=== PATIENT | female | born 1950 | race Caucasian/White ===

== ENCOUNTER 2017-10-10 10:37 | Day surgery (SDC) | payer MEDICARE ==
[2017-10-07 10:43] VITALS: BMI 42.3
[~2017-10-10 10:37] MED LIST: LACTATED RINGERS 1,000 ML IV SCH; LIDOCAINE 1% 20 ML VIAL (10MG/ML) FOR IV START INTRADERMA PRN
[2017-10-10 11:53] VITALS: RESP 16; TEMP 98
[2017-10-10] MEDS ORDERED: LIDOCAINE 1% INJ 10MG/ML (20 ML MDV) ONE (12:51)
[2017-10-10] MEDS ORDERED: PROPOFOL 10 MG/ML 20 ML VIAL IV ONE (12:51)
[2017-10-10] MEDS ORDERED: MIDAZOLAM 2 MG/2 ML VIAL ONE (12:51)
--- NOTE | 2017-10-10 13:24 | P.PCN ---
Date of Procedure: 10/10/17 Procedure(s) Performed: Procedure: Total colonoscopy and polypectomy. Preoperative diagnosis: Screening for neoplasia. Postoperative diagnosis: 1. Sigmoid diverticulosis with no evidence of acute diverticulitis or strictures. 2. Small splenic flexure polyp snared but no large polyps or cancer. Preparation: HalfLytely prep. Sedation: Was provided by anesthesia. Brief clinical history: The patient is a 67-year-old female who is scheduled for this evaluation for screening for neoplasia. She had a prior exam around 15 years ago. She has no abdominal complaints, bleeding or anemia. Procedure: With the patient on her left lateral decubitus position and after informed consent and adequate sedation, the perianal area was inspected and it did not show any fissures or fistulas. There were no masses felt on digital rectal examination. The Olympus CFQ 160L video colonoscope was then inserted in the rectum in the usual fashion and advanced to the cecum. There were several diverticular orifices seen scattered in the sigmoid with no evidence of acute diverticulitis or strictures. A small polyp was seen around the splenic flexure and that was snared and retrieved by suction, but there were no large polyps or cancer. I retroflexed the endoscope in the rectum before the endoscope was withdrawn. The patient tolerated the procedure well. Plan: The patient was reassured. Discussed dietary measures. She will follow up with you as planned and I recommended repeat exam in 5 years.
[2017-10-10 13:42] VITALS: BP 124/83; PULSE 78
== END 2017-10-10 14:10 | disposition home or self-care (01) ==
LOC: ORWHC2ENDO 10:37
DX: Z12.11 Encounter for screening for malignant neoplasm of colon (principal); K51.40 Inflammatory polyps of colon without complications; K57.30 Diverticulosis of large intestine without perforation or abscess without bleeding; E07.9 Disorder of thyroid, unspecified; M19.90 Unspecified osteoarthritis, unspecified site; E66.01 Morbid (severe) obesity due to excess calories; Z68.41 Body mass index [BMI] 40.0-44.9, adult; Z91.09 Other allergy status, other than to drugs and biological substances; Z79.1 Long term (current) use of non-steroidal anti-inflammatories (NSAID); Z79.899 Other long term (current) drug therapy; Z85.3 Personal history of malignant neoplasm of breast; Z90.12 Acquired absence of left breast and nipple
CPT/HCPCS: 45385; 88305; J2250; J2001; J2704

== ENCOUNTER → 2017-10-26 | Outpatient (CLI) | payer MEDICARE ==
--- NOTE | 2017-10-26 11:47 | MM ---
Reason for exam: additional evaluation requested from prior study. Last mammogram was performed 2 years ago. History: Patient is postmenopausal, has history of breast cancer at age 43, and is nulliparous. Family history of premenopausal breast cancer in sister at age 42. Mastectomy of the left breast, 1992. Chemotherapy, 1992. Took hormonal contraceptives for 15 years beginning at age 19. Took progesterone for 3 months beginning at age 42. Physical Findings: Nurse did not find any significant physical abnormalities on exam. MG 3D Diag Mammo W/Cad RT CC and MLO view(s) were taken of the right breast. Prior study comparison: November 04, 2015, right breast MG 3d diag mammo w/cad RT. August 21, 2013, right diagnostic mammogram w/CAD. The breast tissue is heterogeneously dense. This may lower the sensitivity of mammography. Finding: There are typically benign round calcifications in the right breast. There is no discrete abnormality. These results were verbally communicated with the patient and result sheet given to the patient on 10/26/17. ASSESSMENT: Benign, BI-RAD 2 RECOMMENDATION: Follow-up diagnostic mammogram of the right breast in 1 year.
== END | disposition home or self-care (01) ==
LOC: RADMAMWWP 10:38
PROVIDERS: ATTEND Family Medicine
DX: Z08 Encounter for follow-up examination after completed treatment for malignant neoplasm (principal); Z85.3 Personal history of malignant neoplasm of breast; Z90.12 Acquired absence of left breast and nipple
CPT/HCPCS: 77065; G0279

== ENCOUNTER → 2018-09-11 | Outpatient (CLI) | payer MEDICARE ==
[2018-09-11 09:35] LABS: HCT 41.7 % (34.0-46.0); HGB 13.5 gm/dL (11.4-16.0); MCH 30.6 pg (25.0-35.0); MCHC 32.4 g/dL (31.0-37.0); MCV 94.3 fL (80.0-100.0); Mean Platelet Volume 6.4; Platelet Count 240 k/uL (150-450); RBC 4.42 m/uL (3.80-5.40); RDW 13.3 % (11.5-15.5); WBC 4.1 k/uL (3.8-10.6)
[2018-09-11 09:42] LABS: Appearance,Urine Clear (Clear); Bilirubin,Urine Negative (Negative); Blood,Urine Negative (Negative); Color,Urine Yellow; Glucose,Urine (UA) Negative (Negative); Ketones,Urine Negative (Negative); Leukocyte Esterase,Urine Negative (Negative); Nitrite,Urine Negative (Negative); PH, Urine 6.5 (5.0-8.0); Protein,Urine Trace (Negative); Specific Gravity,Urine 1.018 (1.001-1.035); Urobilinogen,Urine <2.0 mg/dL (<2.0)
[2018-09-11 09:45] LABS: INR 0.9 (<1.2); Prothrombin Time 9.9 sec (9.0-12.0)
[2018-09-11 09:53] LABS: ALT 23 U/L (9-52); AST 25 U/L (14-36); Albumin 4.2 g/dL (3.5-5.0); Alkaline Phosphatase 70 U/L (38-126); Anion Gap 7 mmol/L; Blood Urea Nitrogen 21 mg/dL (7-17); Calcium 9.9 mg/dL (8.4-10.2); Carbon Dioxide 30 mmol/L (22-30); Chloride 105 mmol/L (98-107); Glucose 93 mg/dL (74-99); Sodium 142 mmol/L (137-145); Total Bilirubin 0.8 mg/dL (0.2-1.3); Total Protein 7.5 g/dL (6.3-8.2)
[2018-09-11 10:05] LABS: Potassium 4.9 mmol/L (3.5-5.1)
== END | disposition home or self-care (01) ==
LOC: LABPAT 08:09
PROVIDERS: ATTEND Orthopaedic Surgery
DX: Z01.818 Encounter for other preprocedural examination (principal); Z79.01 Long term (current) use of anticoagulants; Z01.812 Encounter for preprocedural laboratory examination
CPT/HCPCS: 36415; 80053; 81003; 85027; 85610; 85730; 86850; 86900; 86901; 87070; 93005

== ENCOUNTER 2018-09-19 13:54 | Inpatient (IN) | payer MEDICARE ==
[~2018-09-19 13:54] MED LIST changes: +ACETAMINOPHEN TAB 500 MG TAB PO ONE; +DEXAMETHASONE SOD PHOSPHATE 10 MG/ML 1 ML VIAL IV ONE; -LACTATED RINGERS 1,000 ML IV SCH; +MELOXICAM 7.5 MG TAB PO ONE; +MIDAZOLAM (PF) 2 MG/2 ML VIAL IV PRN; +ONDANSETRON 4 MG/2 ML VIAL IVP ONE; +ROPIVACAINE 246.25 MG, EPINEPHrine 0.5 MG, KETOROLAC 30 MG, cloNIDine HCL/PF 80 MCG, WA... MISCELLANE ONE; +SCOPOLAMINE 1.5MG/72HR PATCH TRANSDERM ONE; +TRANEXAMIC ACID 1,000 MG in SODIUM CHLORIDE 0.9% 50 ML IVPB ONE
[2018-09-19] MEDS: LACTATED RINGERS 1,000 ML IV SCH (14:38)
[2018-09-19] MEDS ORDERED: HEPARIN SODIUM,PORCINE 10,000 UNIT/ML 1 ML VIAL ONE (15:29)
[2018-09-19] MEDS ORDERED: LACTATED RINGERS 1,000 ML BAG IV ONE (15:29)
[2018-09-19] MEDS ORDERED: PROPOFOL 10 MG/ML 20 ML VIAL IV ONE (15:29)
[2018-09-19] MEDS ORDERED: ePHEDrine SULFATE/0.9% NACL/PF 50 MG/5 ML SYRINGE IV ONE (15:29)
[2018-09-19] MEDS ORDERED: TRANEXAMIC ACID 1,000 MG/10 ML VIAL ONE (15:29)
[2018-09-19] MEDS ORDERED: SODIUM CHLORIDE 0.9% 100 ML BAG ONE (15:29)
[2018-09-19] MEDS ORDERED: fentaNYL (PF) 50 MCG/ML 2 ML AMP ONE (15:29)
[2018-09-19] MEDS ORDERED: MIDAZOLAM 2 MG/2 ML VIAL ONE (15:29)
[2018-09-19] MEDS ORDERED: MAGNESIUM HYDROXIDE 2,400 MG/10 ML CUP PO PRN (16:02)
[2018-09-19] MEDS ORDERED: DIAZEPAM 5 MG TAB PO PRN (16:02)
[2018-09-19] MEDS ORDERED: HYDROmorphone 0.5 MG/0.5 ML SYRINGE IVP PRN ×3 (16:02)
[2018-09-19] MEDS ORDERED: ONDANSETRON 4 MG/2 ML VIAL IVP PRN (16:02)
[2018-09-19] MEDS ORDERED: NALOXONE 0.4 MG/ML 1 ML VIAL IV PRN (16:02)
[2018-09-19] MEDS ORDERED: HYDROcodone/APAP 5-325MG 1 EACH TAB PO PRN (16:02)
[2018-09-19] MEDS ORDERED: ceFAZolin 3,000 MG in SODIUM CHLORIDE 0.9% IRRIGATIO 3,000 ML IRRIGATION ONE (16:30)
--- NOTE | 2018-09-19 17:13 | P.OP ---
Date of Procedure: 09/19/18 Preoperative Diagnosis: Severe osteoarthritis right hip Postoperative Diagnosis: Severe osteoarthritis right hip Procedure(s) Performed: Right total hip arthroplasty with a direct anterior approach Implants: Pineda and nephew Polarstem size 9 standard with a collar Pineda [employer] Nephew R3, 3 hole acetabular shell, 52 mm Pineda [employer] Nephew reflection 6.5 mm cancellus screw, 20 mm 2 Pineda [employer] Nephew R3, XLPE 20 acetabular liner Pineda [employer] Nephew Oxinium femoral head 36 m, +4 All components were press-fit. The articulation is Oxinium on polyethylene. Anesthesia: spinal Surgeon: Keith Montero Tire Builder Heavy Service #1: Cate Wood Estimated Blood Loss (ml): 200 (66 mL returned with Cell Saver) Pathology: other (Femoral head) Condition: stable Disposition: PACU Indications for Procedure: After failure of conservative treatment we discussed the surgical and nonsurgical treatment options at length. Patient wishes to proceed with a total hip arthroplasty with a direct anterior approach. Complications specific to this procedure were discussed at length, including but not limited to infection, leg length discrepancy, dislocation, and nerve injury. Patient is aware of all these complications and informed consent was obtained Operative Findings: The operative findings are consistent with severe osteoarthritis of the right hip Description of Procedure: Patient was seen and evaluated in the preoperative area, consent was reviewed, and the surgical site was marked with a skin marker. Patient was then brought to the operating room and given prophylactic antibiotics intravenously. 1 g of Tranexamic acid was also given. A spinal anesthetic was administered by the anesthesia department. The patient was then placed on the [place] table with the bony prominences well-padded. The hip area was then prepped and draped in usual sterile fashion. A universal timeout was then performed, which confirmed the patient's name, surgical site, ALLERGIES, and procedure being performed. Next the incision site was located at 1 cm distal and 1 cm lateral to the anterior superior iliac spine. The skin and subcutaneous tissues were sharply incised. Incision was carefully dissected down to the fascia overlying the tensor fascia nghia muscle. This fascia was then incised in line with the incision. Next, using blunt finger dissection, the tensor fascia nghia muscle was dissected off its investing fascia. The muscle was then carefully retracted laterally with a cobra retractor over the lateral neck of the femur. Next, the circumflex vessels were identified and cauterized using the AquaMantis device. The anterior hip capsule was then exposed. The capsule was then opened and an inverted T fashion. Cobra retractors were then placed intracapsularly. The proximal femur was then visualized. The femoral neck was then osteotomized appropriate level above the lesser trochanter. Small amount of traction was placed with the [place] table. A small wedge of bone was then removed from the remaining femoral head. Next, using a corkscrew femoral head was easily removed from the acetabulum. On gross visual inspection, the femoral head had complete loss of articular cartilage in multiple periarticular osteophytes. Attention was then turned to the acetabulum. the acetabulum was exposed and any remaining labrum was excised. Sequential reaming of the acetabulum was performed using fluoroscopic guidance. When the appropriate size was reached, a trial was then placed. The position and fit of the trial was checked with fluoroscopy. The trial was then removed. Then, using fluoroscopic guidance, the final implant was impacted at 20 of anteversion and 40 of abduction, and fully seated in the acetabulum. 2 screws were then placed in the acetabulum. Again fluoroscopy was used to check position of the screws. Next, the liner was then impacted, with a 20 elevated liner located in the anterior superior quadrant. Component locking was confirmed. Attention was then directed to the femur. With the aid of the [place] table, the femur was externally rotated to approximately 130, extended, and abducted under the opposite leg. A side hook was then placed under the proximal femur, and the side hook elevator was used to elevate the proximal femur. Retractors were then placed. A capsular release was performed, as well as a release of the conjoined tendon, which afforded excellent visualization of the proximal femur. Next, a box osteotome was used to lateralize the proximal femur. A hand alterations seamstress was then used to locate the femoral canal. Sequential broaching was then performed with appropriate size which afforded excellent fixation in the proximal femur. A trial was then placed with appropriate head and neck, and the hip was gently reduced with the aid of the [place] table. Fluoroscopy was then used to check position of the components, as well as to ensure equal leg lengths. The hip was then gently dislocated and the trials were then removed. Final implants were then impacted and the hip was again reduced. Final fluoroscopic x-rays confirmed that the components were in anatomic position, as well as equal leg lengths. The hip was also taken through range of motion, and found to be stable. The hip was then copiously irrigated with antibiotic solution with pulsatile lavage. The hip was then irrigated with Irrisept solution. The soft tissues were then injected with a ropivacaine solution, which consisted of 246.25 mg of ropivacaine, 0.5 mg of epinephrine, 30 mg of Toradol, 80 g of clonidine, and 48.45 mL of sterile water, for a total of 100 mL of fluid injected. A second dose of 1 g of Tranexamic acid was also given. the fascia was then closed with 2-0 strata fix suture. The subcutaneous tissue was closed with 3-0 Vicryl. The subcuticular tissue was closed with 3-0 strata fix suture. The skin was then closed with Dermabond glue and a sterile silver dressing. The patient was then transferred to the recovery room in stable condition. The assistant professor of history ALOK Stewart was required due to the complexity of surgery, and the need for skilled neurosurgical physician assistant for positioning, draping, exposure, retraction, and closure of the wound.
--- NOTE | 2018-09-19 18:29 | XR ---
PROCEDURE: XR Hip Limited RT - 1V DATE AND TIME: 09/19/2018 5:59 PM CLINICAL INDICATION: PHH; Status post hip surgery, assess surgical alignment TECHNIQUE: AP view COMPARISON: None FINDINGS: Right THR prosthesis has normal positioning and alignment. Postsurgical changes are appreci ated, but no unexpected on this single AP view. IMPRESSION: Postoperative right hip.
[2018-09-19] MEDS: SODIUM CHLORIDE 0.9% 1,000 ML IV SCH (19:06)
[2018-09-19] MEDS: SENNOSIDES-DOCUSATE SODIUM 1 EACH TAB PO SCH (19:22)
[2018-09-19] MEDS: ASPIRIN 325 MG TAB PO SCH (19:22)
[2018-09-19] MEDS: HYDROcodone/APAP 5-325MG 1 EACH TAB PO PRN (19:22)
--- NOTE | 2018-09-19 22:17 | P.CONS ---
History of Present Illness - Reason for Consult Consult date: 09/19/18 medical managemen t Requesting physician: Keith Montero - Chief Complaint elective right FERMIN - History of Present Illness 68-year-old female with history of hypothyroidism. Patient presented for elective right total hip arthroplasty secondary to degenerative joint disease. Patient is seen postoperative day 0 tolerated procedure well denies any chest pain or trouble breathing patient has not passed urine or bowel movement. She just came back from surgery. Denies any nausea vomiting she tolerated by mouth intake. Denies any coughing fevers or chills. She reports that pain is well tolerated at this point. Review of Systems Pertinent positives as noted in HPI. All other systems were reviewed and are negative Past Medical History Past Medical History: Cancer, Osteoarthritis (OA), Thyroid Disorder Additional Past Medical History / Comment(s): HX OF BREAST CANCER WITH CHEMO ( 1993)., USES CANE. History of Any Multi-Drug Resistant Organisms: None Reported Past Surgical History: Breast Surgery Additional Past Surgical History / Comment(s): LEFT MASTECTOMY WITH LYMPH NODE REMOVAL Past Anesthesia/Blood Transfusion Reactions: No Reported Reaction Additional Past Anesthesia/Blood Transfusion Reaction / Comm: STATES WHEN SHE LAYS ON HER SIDE HER HEART BEATS IRREGULAR. Past Psychological History: No Psychological Hx Reported Smoking Status: Former smoker Past Alcohol Use History: Daily Additional Past Alcohol Use History / Comment(s): QUIT SMOKING 1976. SMOKED FOR 10 YEARS. DRINKS 1 DRINK DAILY. Past Drug Use History: None Reported - Past Family History Father Family Medical History: Cancer Additional Family Medical History / Comment(s): LUNG CANCER Sister(s) Family Medical History: Cancer Additional Family Medical History / Comment(s): BREAST CANCER Medications and Allergies Home Medications Medication Instructions Recorded Confirmed Type Levothyroxine Sodium [Synthroid] 50 mcg PO QAM 10/07/17 09/19/18 History Naproxen 500 mg PO BID 09/13/18 09/19/18 History Allergies Allergy/AdvReac Type Severity Reaction Status Date / Time nickel Allergy Unknown SKIN Verified 09/19/18 16:28 IRRITATION Physical Exam Vitals: Vital Signs Temp Pulse Pulse Resp BP Pulse Ox 09/19/18 19:50 16 09/19/18 18:25 85 16 129/74 98 09/19/18 18:00 83 16 117/59 95 09/19/18 17:43 88 16 117/56 95 09/19/18 17:28 98 F 79 14 140/58 97 09/19/18 16:02 98 F 60 16 110/49 98 09/19/18 14:10 98.3 F 85 16 154/82 93 L Intake and Output 09/19/18 09/19/18 09/19/18 06:59 14:59 22:59 Intake Total 200 1921 Output Total 200 Balance 200 1721 Intake: IV 200 701 Intake, IV Titration 140 Amount Sodium Chloride 0.9% 1, 140 000 ml @ 70 mls/hr IV . [id number] [facility] Rx#:[id number] Oral 1080 Output: Estimated Blood Loss 200 Constitutional: No acute distress, conversant, pleasant Eyes: Anicteric sclerae, moist conjunctiva, no lid-lag Pupils equal round reactive to light ENMT: NC/AT Oropharynx clear, no erythema, exudates Neck: Supple, FROM, no masses, or JVD No carotid bruits No thyromegaly Lungs: Clear to auscultation Clear to percussion Normal respiratory effort, no accessory muscle use Cardiovascular: Heart regular in rate and rhythm, No murmurs, gallops, or rubs No peripheral edema Abdominal: Soft Nontender, no guarding, rebound or rigidity Abdomen moving with respiration Normoactive bowel sounds No hepatomegaly, No splenomegaly No palpable mass No abdominal wall hernia noted Skin: Normal temperature, tone, texture, turgor No induration No subcutaneous nodules No rash, lesions No ulcers Extremities: Surgical dressing over the right hip looks dry clean and intact no bruising or ecchymosis skin is soft to the touch. No digital cyanosis No clubbing Pedal pulses intact and symmetrical Radial pulses intact and symmetrical No calf tenderness Psychiatric: Alert and oriented to person, place and time Appropriate affect fair judgment Neuro Muscles Strength 5/5 in all 4 extremities Sensation to light touch grossly present throughout Cranial nerves II-XII grossly intact Decreased sensation of the lateral aspect of the right thigh Lymphatics: no palpable cervical or supraclavicular , or inguinal lymph nodes Assessment and Plan Assessment: 68-year-old female with history of hypothyroidism, presented for elective right total hip arthroplasty secondary to degenerative disease medicine consulted for medical management patient tolerated procedure well denies any immediate complications denies any chest pain trouble breathing shortness of breath fevers chills headache or bleeding. Plan: Degenerative joint disease of the right hip status post right total hip arthroplasty postoperative day 0 Management per orthopedics Pain control DVT prophylaxis per orthopedic Hypothyroidism resume levothyroxine Follow-up morning labs CBC and CMP code status full code emergency contact, patient nephew Thank you for allowing us to participate in the care of this patient. Do not hesitate to contact us with questions. Someone can be reached from the [facility] hospitalist group at all hours of the day at [phone].
[2018-09-19] MEDS ORDERED: ceFAZolin 3 GM in SODIUM CHLORIDE 0.9% 100 ML IVPB SCH (23:00)
[2018-09-20] MEDS: HYDROcodone/APAP 5-325MG 1 EACH TAB PO PRN (03:32)
[2018-09-20] MEDS: LACTATED RINGERS 1,000 ML IV SCH (04:31)
[2018-09-20] MEDS: LEVOTHYROXINE 50 MCG TAB PO SCH (06:14)
[2018-09-20] MEDS: SODIUM CHLORIDE 0.9% 1,000 ML IV SCH ×2 (06:14→20:18)
[2018-09-20 07:33] LABS: Basophils % (A) 0 %; Eosinophils % (A) 0 %; HCT 33.6 % (34.0-46.0); HGB 11.3 gm/dL (11.4-16.0); Lymphocytes # (A) 0.7 k/uL (1.0-4.8); Lymphocytes % (A) 7 %; MCH 31.8 pg (25.0-35.0); MCHC 33.6 g/dL (31.0-37.0); MCV 94.8 fL (80.0-100.0); Mean Platelet Volume 6.9; Monocytes # (A) 0.5 k/uL (0-1.0); Monocytes % (A) 5 %; Neutrophils # (A) 7.9 k/uL (1.3-7.7); Neutrophils % (A) 87 %; Platelet Count 207 k/uL (150-450); RBC 3.54 m/uL (3.80-5.40); RDW 13.3 % (11.5-15.5); WBC 9.2 k/uL (3.8-10.6)
[2018-09-20 07:58] LABS: Albumin 3.3 g/dL (3.5-5.0); Calcium 8.9 mg/dL (8.4-10.2); Potassium 4.1 mmol/L (3.5-5.1); Total Bilirubin 0.5 mg/dL (0.2-1.3); Total Protein 5.8 g/dL (6.3-8.2)
--- NOTE | 2018-09-20 09:25 | XR ---
"Right hip HISTORY: Status post hip arthroplasty, pain Single frontal view of the right hip. Patient is post right hip arthroplasty. Proximal right femoral fracture is present extending through the hip prosthesis placement which is now displaced and angulated. No dislocation. IMPRESSION: Postop changes with proximal right femoral fracture as described A [place] critical message alert has been initiated for Guido Agarwal MD~[id number] via the [employer] | Critical Results System on 09/20/2018 9:23 AM. This message alert has been sent to Guido Agarwal MD~[id number] via the preferences provided by the clinician for the receipt of Radiology Criti lyn Findings. Message ID [id number]."
--- NOTE | 2018-09-20 09:26 | XR ---
Limited right hip HISTORY: Right hip arthroplasty 2 intraoperative C-arm images document the procedure
--- NOTE | 2018-09-20 09:31 | FL ---
Fluoroscopy HISTORY: Right hip arthroplasty 23 seconds fluoroscopy time supplied to the referring clinician. 2 intraoperative C-arm images docum ent the procedure. See dictated report from orthopedic surgery.
[2018-09-20] MEDS: MELOXICAM 7.5 MG TAB PO SCH (09:53)
[2018-09-20] MEDS: HYDROcodone/APAP 7.5-325MG 1 EACH TAB PO PRN ×3 (09:54→21:29)
[2018-09-20] MEDS: ASPIRIN 325 MG TAB PO SCH ×2 (11:32→20:18)
--- NOTE | 2018-09-20 12:05 | P.PN ---
Subjective Progress Note Date: 09/20/18 Principal diagnosis: Right hip arthroplasty Patient seen and examined. No acute events overnight. Patient reports right hip pain scale 5 out of 10 in severity. States she was able to ambulate to the washroom twice today. States that she was on her feet when she heard a pop in her right hip surgery. Discovered to have proximal right femoral fracture which is now displaced and angulated. She is plan for surgery tomorrow, nothing by mouth after midnight. Objective - Vital Signs Vital signs: Vital Signs Temp 97.8 F 09/20/18 07:00 Pulse 75 09/20/18 07:00 Resp 16 09/20/18 07:00 BP 119/68 09/20/18 07:00 Pulse Ox 98 09/20/18 07:00 Intake & Output 09/19/18 09/20/18 09/20/18 18:59 06:59 18:59 Intake Total 901 1220 240 Output Total 200 Balance 701 1220 240 Intake: IV 901 Intake, IV Titration 140 Amount Sodium Chloride 0.9% 1, 140 000 ml @ 70 mls/hr IV . [id number] [facility] Rx#:[id number] Oral 1080 240 Output: Estimated Blood Loss 200 Other: # Voids 1 - Exam General: [non toxic], [no distress], [appears at stated age] Derm: [warm], [dry] Head: [atraumatic], [normocephalic], [symmetric] Eyes: [EOMI], [no lid lag], [anicteric sclera] Mouth: [no lip lesion], [mucus membranes moist] Cardiovascular: [S1S2 reg], [no murmur], [positive DP pulse bilateral] Lungs: [CTA bilateral], [no rhonchi, no rales] , [no accessory muscle use] Abdominal: [soft], [ nontender to palpation], [no guarding], [no appreciable organomegaly] Ext: [no gross muscle atrophy], [no edema], [no contractures], [surgical dressings clear dry and intact] Neuro: [no focal neuro deficits] Psych: [Alert], [oriented], [appropriate affect] - Labs CBC & Chem 7: 09/20/18 07:13 09/20/18 07:13 Labs: Abnormal Lab Results - Last 24 Hours (Table) 09/20/18 09/20/18 Range/Units 07:13 07:13 RBC 3.54 L (3.80-5.40) m/uL Hgb 11.3 L (11.4-16.0) gm/dL Hct 33.6 L (34.0-46.0) % Neutrophils # 7.9 H (1.3-7.7) k/uL Lymphocytes # 0.7 L (1.0-4.8) k/uL BUN 22 H (7-17) mg/dL Glucose 145 H (74-99) mg/dL Total Protein 5.8 L (6.3-8.2) g/dL Albumin 3.3 L (3.5-5.0) g/dL Assessment and Plan Assessment: Assessment and Plan 1. Right femoral head fracture 2. Degenerative joint disease of the right hip status post total right hip arthroplasty POD 1 3. Hypothyroidism 1. Discovered on x-ray. Complication of surgery. [place] and Dilaudid as needed for pain control. Meloxicam daily. Nothing by mouth after midnight, plans for OR tomorrow. Weightbearing as per orthopedic recommendations. Will follow orthopedic, PT and OT recommendations. 2. Management as above. 3. Continue Synthroid 50 g by mouth daily. Plans for OR tomorrow.
--- NOTE | 2018-09-20 16:38 | P.PN ---
Progress Note - Text Progress Note Date: 09/20/18 Mrs. Boogie was seen and evaluated the bedside this afternoon. On reviewing her postoperative x-rays, I noticed what appeared to be a periprosthetic fracture of her right hip. When I came to see her this morning she complained of pain and hearing a popping sound in her right hip. I ordered a stat x-ray of her right hip which revealed a definite periprosthetic fracture with displacement. I have explained this at length with Heike about what is occurring. She is aware of what is happening, and I also discussed the need for surgical repair of the fracture. I discussed how the procedure was going to be performed by extending her prior incision distally and placing cable wires around the fracture. He was also discussed at length that there is a possibility of needing to revise the femoral stem as well. I discussed this at length with her and answered all her questions to the best of my ability. We will plan on doing this tomorrow morning and informed consent was obtained.
[2018-09-20] MEDS: SENNOSIDES-DOCUSATE SODIUM 1 EACH TAB PO SCH (20:18)
[2018-09-20] MEDS: hydrOXYzine PAMOATE 25 MG CAP PO PRN (21:30)
[2018-09-21] MEDS: hydrOXYzine PAMOATE 25 MG CAP PO PRN (03:13)
[2018-09-21] MEDS: HYDROcodone/APAP 7.5-325MG 1 EACH TAB PO PRN ×2 (03:13→21:33)
[2018-09-21] MEDS: LACTATED RINGERS 1,000 ML IV SCH (05:02)
[2018-09-21] MEDS: LEVOTHYROXINE 50 MCG TAB PO SCH (05:08)
[2018-09-21] MEDS: ASPIRIN 325 MG TAB PO SCH (08:42)
[2018-09-21] MEDS: MELOXICAM 7.5 MG TAB PO SCH (08:42)
[2018-09-21] MEDS ORDERED: IV FLUID CONTINUATION 1,000 ML IV ONE (08:47)
[2018-09-21] MEDS ORDERED: DEXAMETHASONE SOD PHOSPHATE 10 MG/ML 1 ML VIAL IV ONE (08:54)
[2018-09-21] MEDS ORDERED: NEOSTIGMINE 1 MG/ML 10 ML VIAL ONE (09:38)
[2018-09-21] MEDS ORDERED: PROPOFOL 10 MG/ML 20 ML VIAL IV ONE (09:38)
[2018-09-21] MEDS ORDERED: LIDOCAINE 1% INJ 10MG/ML (20 ML MDV) ONE (09:38)
[2018-09-21] MEDS ORDERED: GLYCOPYRROLATE 0.2 MG/ML 2 ML VIAL ONE (09:38)
[2018-09-21] MEDS ORDERED: ROCURONIUM BROMIDE 10 MG/ML 10 ML VIAL IV ONE (09:38)
[2018-09-21] MEDS ORDERED: ePHEDrine SULFATE/0.9% NACL/PF 50 MG/5 ML SYRINGE IV ONE (09:38)
[2018-09-21] MEDS ORDERED: MIDAZOLAM 2 MG/2 ML VIAL ONE (09:38)
[2018-09-21] MEDS ORDERED: ceFAZolin 3,000 MG in SODIUM CHLORIDE 0.9% IRRIGATIO 3,000 ML IRRIGATION ONE (10:25)
[2018-09-21] MEDS ORDERED: LACTATED RINGERS 1,000 ML IV ONE ×5 (11:17→15:36)
[2018-09-21 11:42] LABS: HCT 28.3 % (34.0-46.0); MCH 31.9 pg (25.0-35.0); MCHC 33.9 g/dL (31.0-37.0); Mean Platelet Volume 6.1; Platelet Count 195 k/uL (150-450); RBC 3.02 m/uL (3.80-5.40); RDW 13.3 % (11.5-15.5); WBC 7.4 k/uL (3.8-10.6)
[2018-09-21 11:43] LABS: HGB 9.6 gm/dL (11.4-16.0)
--- NOTE | 2018-09-21 13:08 | P.OP ---
Date of Procedure: 09/21/18 Preoperative Diagnosis: Periprosthetic fracture right total hip arthroplasty Postoperative Diagnosis: Periprosthetic fracture right total hip arthroplasty Procedure(s) Performed: Open reduction and internal fixation periprosthetic fracture right total hip arthroplasty and revision femoral component. Implants: [place] cable ready cables 8 Pineda & Nephew readapt femoral standard offset stem revision size 15 x 240 mm Pineda & Nephew Oxinium femoral head 36 mm, +4 All components were press-fit The articulation is ceramic on polyethylene Anesthesia: GETA Surgeon: Keith Montero Top Precipitator Operator #1: Cate Wood Estimated Blood Loss (ml): 1,600 Pathology: none sent Condition: stable Disposition: PACU Indications for Procedure: This is a 68-year-old female who had a total hip arthroplasty performed on 09/19. Postoperatively, was discovered she had a periprosthetic fracture of her femur. After discussing the surgical and nonsurgical treatment options with her at length, I recommended open reduction and internal fixation of her periprosthetic femur fracture. There was also discussed the possibility of revising her stem depending on the stability. I described the procedure and the situation to the best of my ability and informed consent was obtained. Operative Findings: The operative findings are consistent with a periprosthetic fracture of the right femur. Description of Procedure: Patient was seen and evaluated in the preoperative area, consent was reviewed, and the surgical site was marked with a skin marker. Patient was then brought to the operating room and given prophylactic antibiotics intravenously. A general anesthetic was administered by the anesthesia department. The patient was then placed on the [place] table with the bony prominences well-padded. The hip area was then prepped and draped in usual sterile fashion. A universal timeout was then performed, which confirmed the patient's name, surgical site, ALLERGIES, and procedure being performed. The prior incision was then opened, and then extended distally and laterally.. The skin and subcutaneous tissues were sharply incised. Incision was carefully dissected down to the fascia overlying the tensor fascia nghia muscle. This fascia was then incised in line with the incision. Next, using blunt finger dissection, the tensor fascia nghia muscle was dissected off its investing fascia. The muscle was then carefully retracted laterally with a cobra retractor over the lateral neck of the femur. The proximal femur was then visualized. The fascia nghia was then split distally and the vastus lateralis was then elevated posterior to anterior to expose the distal part of the femoral stem. Fracture was then visualized the fracture was significantly comminuted with multiple large fragments and displacement. Cables were then placed around the fracture in order to aid reduction.. After much difficulty, the fracture was reduced and the hip was then gently dislocated. Due to the location of the fracture, a longer femoral stem was necessary. Current femoral stem was then removed without incident. Sequential reaming of the femoral canal was then performed with appropriate size. Next the appropriate size revision femoral component was impacted proper anteversion. Additional cables were placed in all the cables were then tightened. The femoral head was then impacted and the hip was gently reduced. Fluoroscopic x-rays confirmed concentric reduction of the hip as well as reduction of the fracture and placement of the revision stem and cables. The hip was then copiously irrigated with antibiotic solution with pulsatile lavage. The hip was then irrigated with Irrisept solution. the fascia was then closed with 2-0 strata fix suture. The subcutaneous tissue was closed with 3-0 Vicryl. [place] were used for the skin. Sterile dressing was applied. The patient was then transferred to the recovery room in stable condition. Due to the significant comminution of the fracture, patient will be placed nonweightbearing for proximally 4-6 weeks. I will discuss with the patient afterwards of the severity of the injury and fracture of the potential for refracture if she places weight on her leg. The training and development assistant ALOK Stewart was required due to the complexity of surgery, and the need for skilled surgical asst for positioning, draping, exposure, retraction, and closure of the wound.
[2018-09-21] MEDS: HYDROmorphone 0.5 MG/0.5 ML SYRINGE IVP PRN ×5 (14:05→15:28)
[2018-09-21] MEDS ORDERED: NALOXONE 0.4 MG/ML 1 ML VIAL IV PRN (14:27)
[2018-09-21] MEDS ORDERED: ONDANSETRON 4 MG/2 ML VIAL IVP PRN (14:27)
--- NOTE | 2018-09-21 15:22 | XR ---
Limited right hip HISTORY: Status post right hip arthroplasty 2 intraoperative C-arm images document the procedure
[2018-09-21 15:42] LABS: HGB 8.8 gm/dL (11.4-16.0); MCH 31.6 pg (25.0-35.0); MCHC 32.6 g/dL (31.0-37.0); MCV 97.1 fL (80.0-100.0); Mean Platelet Volume 6.8; Platelet Count 191 k/uL (150-450); RBC 2.78 m/uL (3.80-5.40); RDW 13.4 % (11.5-15.5); WBC 9.6 k/uL (3.8-10.6)
--- NOTE | 2018-09-21 15:53 | FL ---
Fluoroscopy HISTORY: Hip repair 1.52 minutes fluoroscopy time supplied to the referring clinician. 2 intraoperative C-arm images doc ument the procedure. See dictated report from orthopedic surgery.
[2018-09-21] MEDS: SODIUM CHLORIDE 0.9% 1,000 ML IV SCH ×2 (16:11→16:17)
--- NOTE | 2018-09-21 16:13 | P.PN ---
Subjective Progress Note Date: 09/21/18 Principal diagnosis: Hip pain Patient was seen and examined. No acute events overnight. Underwent ORIF periprosthetic fracture right total hip arthroplasty and revision of the femoral component. Patient reports pain in the R hip, 10/15 - 06/14 in severity. She has no other complaints. Objective - Vital Signs Vital signs: Vital Signs Temp 97.1 F L 09/21/18 14:00 Pulse 86 09/21/18 15:30 Resp 16 09/21/18 15:30 BP 129/62 09/21/18 15:30 Pulse Ox 97 09/21/18 15:30 Intake & Output 09/20/18 09/21/18 09/21/18 18:59 06:59 18:59 Intake Total 208 402 0517 Output Total 1600 Balance 531 744 7216 Weight 127.006 kg Intake: IV 3826 Intake, IV Titration 180 Amount Sodium Chloride 0.9% 1, 180 000 ml @ 70 mls/hr IV . [id number] HARRY Rx#:[id number] Oral 480 150 Output: Estimated Blood Loss 1600 Other: Voiding Method Bedside Commode # Voids 1 1 - Exam General: [non toxic], [no distress], [appears at stated age] Derm: [warm], [dry] Head: [atraumatic], [normocephalic], [symmetric] Eyes: [EOMI], [no lid lag], [anicteric sclera] Mouth: [no lip lesion], [mucus membranes moist] Cardiovascular: [S1S2 reg], [tachycardia], [positive DP pulse bilateral] Lungs: [CTA bilateral], [no rhonchi, no rales] , [no accessory muscle use] Abdominal: [soft], [ nontender to palpation], [no guarding], [no appreciable organomegaly] Ext: [no gross muscle atrophy], [no edema], [no contractures], [R hip surgical dressing clean dry and intact] Neuro: [no focal neuro deficits] Psych: [Alert], [oriented], [appropriate affect] - Labs CBC & Chem 7: 09/21/18 15:16 09/20/18 07:13 Labs: Abnormal Lab Results - Last 24 Hours (Table) 09/21/18 09/21/18 Range/Units 11:36 15:16 RBC 3.02 L 2.78 L (3.80-5.40) m/uL Hgb 9.6 L D 8.8 L (11.4-16.0) gm/dL Hct 28.3 L 27.0 L (34.0-46.0) % Assessment and Plan Assessment: Assessment and Plan 1. Right femoral head fracture 2. Degenerative joint disease of the right hip status post total right hip arthroplasty POD 2 3. Hypothyroidism 1. Discovered on x-ray. Complication of surgery. [place] and Dilaudid as needed for pain control. Meloxicam daily. POD0. Weightbearing as per orthopedic recommendations. Will follow orthopedic, PT and OT recommendations. 2. Management as above. POD2. 3. Continue Synthroid 50 g by mouth daily. Thank you for the consult. We will continue to follow with you. Please call with additional questions.
--- NOTE | 2018-09-21 17:42 | XR ---
EXAMINATION TYPE: XR Hip Limited RT DATE OF EXAM: 09/21/2018 COMPARISON: 09/19/2018 HISTORY: Revision of hip prosthesis TECHNIQUE: Single view FINDINGS: There is been replacement of the femoral component of the prosthesis with a longer Shank in to the shaft of the femur. Components appear in good position. There are lateral skin christopher. IMPRESSION: Hip prosthesis revision. No complicating process seen.
[2018-09-21] MEDS: SENNOSIDES-DOCUSATE SODIUM 1 EACH TAB PO SCH (21:32)
[2018-09-22] MEDS: SODIUM CHLORIDE 0.9% 1,000 ML IV SCH ×3 (02:12→20:27)
[2018-09-22] MEDS: LACTATED RINGERS 1,000 ML IV SCH (02:16)
[2018-09-22] MEDS: HYDROcodone/APAP 7.5-325MG 1 EACH TAB PO PRN ×3 (04:58→19:51)
[2018-09-22] MEDS: LEVOTHYROXINE 50 MCG TAB PO SCH (06:08)
[2018-09-22 07:32] LABS: Basophils % (A) 0 %; Eosinophils % (A) 1 %; HCT 21.6 % (34.0-46.0); Lymphocytes # (A) 0.7 k/uL (1.0-4.8); Lymphocytes % (A) 13 %; MCH 31.4 pg (25.0-35.0); MCHC 33.3 g/dL (31.0-37.0); MCV 94.5 fL (80.0-100.0); Mean Platelet Volume 6.2; Monocytes # (A) 0.4 k/uL (0-1.0); Monocytes % (A) 7 %; Neutrophils # (A) 4.6 k/uL (1.3-7.7); Neutrophils % (A) 78 %; Platelet Count 201 k/uL (150-450); RBC 2.29 m/uL (3.80-5.40); RDW 13.3 % (11.5-15.5); WBC 5.9 k/uL (3.8-10.6)
[2018-09-22 07:51] LABS: HGB 7.2 gm/dL (11.4-16.0)
--- NOTE | 2018-09-22 08:32 | P.PN ---
Subjective Progress Note Date: 09/22/18 This is a 68-year-old female who is status post ORIF of periprosthetic fracture right total hip arthroplasty and revision of femoral component. This is postoperative day #1. Patient is seen and evaluated at bedside with Dr. Keith Montero. Patient does report pain in the right hip today, but has been able to transfer to the commode with assistance. Patient complains of diarrhea today. Otherwise patient denies any new complaints. Patient denies any fever/ chills, numbness, weakness, tingling, abdominal pain, shortness of breath or chest pain. Objective - Vital Signs Vital signs: Vital Signs Temp 98.7 F 09/22/18 00:50 Pulse 98 09/22/18 00:50 Resp 16 09/22/18 00:50 BP 119/71 09/22/18 00:50 Pulse Ox 92 L 09/22/18 00:50 Intake & Output 09/21/18 09/22/18 09/22/18 18:59 06:59 18:59 Intake Total 3826 Output Total 1600 Balance 2226 Weight 127.006 kg Intake: IV 3826 Output: Estimated Blood Loss 1600 Other: Voiding Method Bedside Commode Bedpan # Voids 1 # Bowel Movements 1 - Exam Vital signs are stable. Patient is in no acute distress and is alert and oriented 3. Calf is soft and nontender to palpation. Dressing is clean, dry, and intact. Patient has full foot and ankle motion without pain or difficulty. Neurovascular status and circulatory status are intact. - Labs CBC & Chem 7: 09/22/18 06:46 09/20/18 07:13 Labs: Abnormal Lab Results - Last 24 Hours (Table) 09/21/18 09/21/18 09/22/18 Range/Units 11:36 15:16 06:46 RBC 3.02 L 2.78 L 2.29 L (3.80-5.40) m/uL Hgb 9.6 L D 8.8 L 7.2 L D (11.4-16.0) gm/dL Hct 28.3 L 27.0 L 21.6 L (34.0-46.0) % Lymphocytes # 0.7 L (1.0-4.8) k/uL Assessment and Plan Assessment: Status post ORIF perprosthetic fracture right total hip arthroplasty and revision of femoral component. (1) S/P total hip arthroplasty Current Visit: Yes Status: Acute Code(s): Z96.649 - PRESENCE OF UNSPECIFIED ARTIFICIAL HIP JOINT SNOMED Code(s): 687532218546 (2) Primary osteoarthritis of right hip Current Visit: Yes Status: Acute Code(s): M16.11 - UNILATERAL PRIMARY OSTEOARTHRITIS, RIGHT HIP SNOMED Code(s): 857125300 (3) Periprosthetic fracture around internal prosthetic right hip joint Current Visit: Yes Status: Acute Code(s): M97.01XA - PERIPROSTH FRACTURE AROUND INTERNAL PROSTH R HIP JT, INIT SNOMED Code(s): 145306106 (4) Status post open reduction with internal fixation of fracture Current Visit: Yes Status: Acute Code(s): Z96.7 - PRESENCE OF OTHER BONE AND TENDON IMPLANTS; Z87.81 - PERSONAL HISTORY OF (HEALED) TRAUMATIC FRACTURE SNOMED Code(s): 674972110 Plan: Continue routine postop care and pain control. Strictly nonweightbearing to the right lower extremity. Continue Xarelto for DVT prophylaxis. Daily dressing changes. Virgie to be removed in 10-14 days. Appreciate input from medicine. Hemoglobin today is 7.2 secondary to blood loss during surgery. Pulse 98 and blood pressure 119/71. Likely discharge to rehab Tuesday.
[2018-09-22] MEDS ORDERED: RIVAROXABAN 10 MG TAB PO SCH (09:00)
[2018-09-22] MEDS ORDERED: HYDROmorphone 2 MG TAB PO PRN ×3 (11:27→11:28)
--- NOTE | 2018-09-22 15:16 | P.PN ---
Subjective Progress Note Date: 09/22/18 Principal diagnosis: Status post right hip arthroplasty Patient seen and examined. No acute events overnight. Patient reports right hip pain, controlled with IV Dilaudid. She denies any chest pain, shortness of breath or palpitations. Had one episode of diarrhea this morning. She is postop day 1. Objective - Vital Signs Vital signs: Vital Signs Temp 99.0 F 09/22/18 07:26 Pulse 93 09/22/18 08:00 Resp 16 09/22/18 08:00 BP 91/56 09/22/18 07:26 Pulse Ox 92 L 09/22/18 07:26 Intake & Output 09/21/18 09/22/18 09/22/18 18:59 06:59 18:59 Intake Total 3826 Output Total 1600 Balance 2226 Weight 127.006 kg Intake: IV 3826 Output: Estimated Blood Loss 1600 Other: Voiding Method Bedside Commode Bedpan Bedside Commode # Voids 1 # Bowel Movements 1 - Exam General: [non toxic], [no distress], [appears at stated age] Derm: [warm], [dry] Head: [atraumatic], [normocephalic], [symmetric] Eyes: [EOMI], [no lid lag], [anicteric sclera] Mouth: [no lip lesion], [mucus membranes moist] Cardiovascular: [S1S2 reg], [no murmurs, [positive DP pulse bilateral] Lungs: [CTA bilateral], [no rhonchi, no rales] , [no accessory muscle use] Abdominal: [soft], [ nontender to palpation], [no guarding], [no appreciable organomegaly] Ext: [no gross muscle atrophy], [no edema], [no contractures], [R hip surgical dressing clean dry and intact] Neuro: [no focal neuro deficits] Psych: [Alert], [oriented], [appropriate affect] - Labs CBC & Chem 7: 09/22/18 06:46 09/20/18 07:13 Labs: Abnormal Lab Results - Last 24 Hours (Table) 09/21/18 09/22/18 Range/Units 15:16 06:46 RBC 2.78 L 2.29 L (3.80-5.40) m/uL Hgb 8.8 L 7.2 L D (11.4-16.0) gm/dL Hct 27.0 L 21.6 L (34.0-46.0) % Lymphocytes # 0.7 L (1.0-4.8) k/uL Assessment and Plan Assessment: Assessment and Plan 1. Right femoral head fracture 2. Degenerative joint disease of the right hip status post total right hip arthroplasty POD 2 3. Hypothyroidism 1. Discovered on x-ray. Complication of surgery. [place] and Dilaudid as needed for pain control. Meloxicam daily. POD1. Weightbearing as per orthopedic recommendations. Started on Xarelto. Will follow orthopedic, PT and OT recommendations. 2. Management as above. POD3. 3. Continue Synthroid 50 g by mouth daily. Thank you for the consult. We will continue to follow with you. Please call with additional questions.
[2018-09-22] MEDS: SENNOSIDES-DOCUSATE SODIUM 1 EACH TAB PO SCH (20:27)
[2018-09-22] MEDS ORDERED: SODIUM CHLORIDE 0.9% 1,000 ML IV ONE (20:59)
[2018-09-22 23:31] LABS: Glucose,Whole Blood 126 mg/dL (75-99)
[2018-09-23] MEDS ORDERED: DEXTROSE 5% IN WATER 100 ML with AMIODARONE 150 MG IV ONE (00:05)
[2018-09-23 00:07] LABS: Basophils % (A) 0 %; Eosinophils % (A) 0 %; HCT 21.8 % (34.0-46.0); Lymphocytes # (A) 1.2 k/uL (1.0-4.8); Lymphocytes % (A) 14 %; MCH 31.6 pg (25.0-35.0); MCHC 31.9 g/dL (31.0-37.0); MCV 98.9 fL (80.0-100.0); Monocytes # (A) 0.6 k/uL (0-1.0); Monocytes % (A) 7 %; Neutrophils # (A) 6.6 k/uL (1.3-7.7); Neutrophils % (A) 77 %; Platelet Count 223 k/uL (150-450); RBC 2.21 m/uL (3.80-5.40); RDW 13.5 % (11.5-15.5); WBC 8.6 k/uL (3.8-10.6)
[2018-09-23 00:25] LABS: Glucose,Whole Blood 132 mg/dL (75-99)
--- NOTE | 2018-09-23 00:25 | P.PN ---
Progress Note - Text Progress Note Date: 09/22/18 notified by RN to evaluate patient with low blood pressure and changes in overall condition . upon my arrival , patient reported feeling palpitations, generalized weakness, and some shortness of breath, denies any chest pain, nausea or vomiting, denies any surgical site pain that is out of her expectations. patient is a healthy lady, with only history of hypothyroidism, denies any history of irregular heart rate or CAD. patient is post op day 1 , post ORIF. upon reviewing patient chart, she has dropped her hemoglobin significantly by 4 grams since surgery , evaluation of her site of surgery revealed some mild bruising around the surgical site, no tenderness to palpation , there is soft area of mild swelling around the surgical site, christopher intact, no discharge or drainage. lungs sounds clear to auscultation . patient alert oriented to place time and person she looks clammy and sweaty blood pressure borderline low-normal SBP 90-105 HR in the 160-200 , EKG showed SVT with no ST changes,. patient was started on IVF normal saline bolus of 1L oxygen supplemental NC Ateam notified , and ACLS protocol followed patient was given adenosine , while recording tele strip , given first dose of 6 mg , then another dose of 12 mg, this helped slowing down her heart rate, and confirming Afib. EKG showed afib with RVR due to borderline low - normal blood pressure , lopressor or cardizem were avoided patient was given a bolus of amiodarone 150 mg over 10 minutes and then were initiated on amiodarone drip per protocol differential diagnosis post elective right total hip replacement followed by complicated fracture at same site requiring another surgery with ORIF currently POD #1 orthopedic team notified about change of status SVT then afib with RVR, 2/2 post operative acute blood loss Hgb dropped by >4 gms. EKG showed SVT, and monitoring coordinator during adenosin showed afib with RVR management as mentioned above patient on Xarelto post op for DVT PPX Transfer to the ICU cardiology consult , paged await call back check cardiac echo check TSH cardiac tele continue with check troponins and cardiac enzymes EKG showed no ST changes, afib with RVR Acute blood loss anemia post op stat blood transfusion of 2 units close monitoring of Hgb orthopedic to evaluate surgical site 40 minutes were spent in critical care time with this patient
[2018-09-23] MEDS ORDERED: SODIUM CHLORIDE 0.9% 1,000 ML IV ONE (00:56)
[2018-09-23] MEDS: AMIODARONE 450 MG in DEXTROSE 5% IN WATER 250 ML IV SCH ×4 (00:57→09:29)
[2018-09-23] MEDS: SODIUM CHLORIDE 0.9% 1,000 ML IV SCH ×2 (00:58→17:56)
[2018-09-23 01:43] LABS: ALT 33 U/L (9-52); AST 88 U/L (14-36); Albumin 2.1 g/dL (3.5-5.0); Alkaline Phosphatase 42 U/L (38-126); Anion Gap 5 mmol/L; Blood Urea Nitrogen 18 mg/dL (7-17); Calcium 7.5 mg/dL (8.4-10.2); Carbon Dioxide 19 mmol/L (22-30); Chloride 109 mmol/L (98-107); Creatine Kinase MB 7.1 ng/mL (0.0-2.4); Glucose 121 mg/dL (74-99); Magnesium 1.9 mg/dL (1.6-2.3); Potassium 4.2 mmol/L (3.5-5.1); Sodium 133 mmol/L (137-145); Total Bilirubin 0.7 mg/dL (0.2-1.3); Total Protein 4.3 g/dL (6.3-8.2)
[2018-09-23 01:44] LABS: Troponin I 0.038 ng/mL (0.000-0.034)
[2018-09-23] MEDS ORDERED: Magnesium Replacement Protocol 1 EACH MISC MISCELLANE PRN (05:01)
[2018-09-23] MEDS: MAGNESIUM SULFATE-D5W PMX 1 GM in DEXTROSE/WATER 1 100ML.BAG IVPB SCH ×2 (05:13→06:12)
[2018-09-23] MEDS: LEVOTHYROXINE 50 MCG TAB PO SCH (06:12)
[2018-09-23 08:23] LABS: Basophils % (A) 0 %; Eosinophils % (A) 0 %; HCT 25.6 % (34.0-46.0); HGB 8.3 gm/dL (11.4-16.0); Lymphocytes # (A) 1.1 k/uL (1.0-4.8); Lymphocytes % (A) 14 %; MCH 31.1 pg (25.0-35.0); MCHC 32.5 g/dL (31.0-37.0); MCV 95.9 fL (80.0-100.0); Mean Platelet Volume 7.1; Monocytes # (A) 0.5 k/uL (0-1.0); Monocytes % (A) 7 %; Neutrophils # (A) 5.7 k/uL (1.3-7.7); Neutrophils % (A) 77 %; Platelet Count 202 k/uL (150-450); RBC 2.67 m/uL (3.80-5.40); RDW 13.7 % (11.5-15.5); WBC 7.5 k/uL (3.8-10.6)
[2018-09-23 08:25] LABS: Anion Gap 4 mmol/L; Blood Urea Nitrogen 17 mg/dL (7-17); Calcium 7.6 mg/dL (8.4-10.2); Carbon Dioxide 23 mmol/L (22-30); Chloride 108 mmol/L (98-107); Glucose 119 mg/dL (74-99); Potassium 4.3 mmol/L (3.5-5.1); Sodium 135 mmol/L (137-145)
--- NOTE | 2018-09-23 08:56 | P.CRDCN ---
History of Present Illness Consult date: 09/23/18 Chief complaint: Palpitations History of present illness: This is a pleasant 68-year-old female patient with a past medical history significant for history of breast cancer as well as thyroid disorder who was admitted to the hospital and underwent right hip surgery. Subsequently the patient did have a prosthetic fracture. She was taken again to the OR where she underwent another hip surgery. We get involved in her care because during her hospitalization and after the second surgery the patient felt palpitation in the chest associated with sweating. No chest pain or chest discomfort. An EKG was performed and revealed atrial fibrillation with RVR which is new to the patient. The patient is not aware of any prior history of coronary artery disease or congestive heart failure or any cardiac arrhythmia and she never seen any office agent in the past. She was started on amiodarone IV and she continues to be on amiodarone drip at this point. She's also on oral anticoagulation with Xarelto at 10 mg by mouth daily. The patient continues to be in atrial fibrillation with heart rate in the 120 to 130 beats per minute. I am going to continue the amnio IV, switched into a new by mouth later on, add small dose of metoprolol, increase the dose of oral anticoagulation and follow- up on the echocardiogram. Past Medical History Past Medical History: Cancer, Osteoarthritis (OA), Thyroid Disorder Additional Past Medical History / Comment(s): HX OF BREAST CANCER WITH CHEMO ( 1993)., USES CANE. History of Any Multi-Drug Resistant Organisms: None Reported Past Surgical History: Breast Surgery Additional Past Surgical History / Comment(s): LEFT MASTECTOMY WITH LYMPH NODE REMOVAL Past Anesthesia/Blood Transfusion Reactions: No Reported Reaction Additional Past Anesthesia/Blood Transfusion Reaction / Comment(s): STATES WHEN SHE LAYS ON HER SIDE HER HEART BEATS IRREGULAR. Smoking Status: Former smoker - Past Family History Father Family Medical History: Cancer Additional Family Medical History / Comment(s): LUNG CANCER Sister(s) Family Medical History: Cancer Additional Family Medical History / Comment(s): BREAST CANCER Medications and Allergies Home Medications Medication Instructions Recorded Confirmed Type Levothyroxine Sodium [Synthroid] 50 mcg PO QAM 10/07/17 09/19/18 History Naproxen 500 mg PO BID 09/13/18 09/19/18 History Allergies Allergy/AdvReac Type Severity Reaction Status Date / Time nickel Allergy Unknown SKIN Verified 09/19/18 16:28 IRRITATION Physical Exam Vitals: Vital Signs Temp Pulse Pulse Resp BP BP Pulse Ox 09/23/18 07:00 133 H 17 103/69 95 09/23/18 06:30 131 H 15 107/70 92 L 09/23/18 06:00 133 H 10 L 111/69 94 L 09/23/18 05:30 130 H 14 117/81 96 09/23/18 05:11 98.7 F 130 H 15 114/81 09/23/18 05:00 125 H 13 106/71 93 L 09/23/18 04:30 130 H 15 104/71 94 L 09/23/18 04:14 98.1 F 133 H 17 104/71 09/23/18 04:10 128 H 18 109/69 98 09/23/18 04:00 98.5 F 130 H 17 107/65 99 09/23/18 03:50 131 H 18 105/70 99 09/23/18 03:44 98.5 F 130 H 15 107/65 09/23/18 03:40 129 H 14 107/67 100 09/23/18 03:34 98.3 F 129 H 16 107/67 09/23/18 03:30 131 H 17 99/72 100 09/23/18 03:25 98.9 F 126 H 16 99/72 09/23/18 03:20 125 H 15 90/67 99 09/23/18 03:10 128 H 15 95/62 100 09/23/18 03:00 147 H 16 102/60 100 09/23/18 02:54 98.9 F 133 H 16 102/60 09/23/18 02:50 130 H 12 98/64 100 09/23/18 02:40 144 H 16 90/54 100 09/23/18 02:30 158 H 17 97/63 99 09/23/18 02:24 98.7 F 149 H 19 97/63 100 09/23/18 02:20 154 H 15 96/52 100 09/23/18 02:14 98.7 F 142 H 16 96/56 99 09/23/18 02:10 158 H 17 91/76 99 09/23/18 02:00 168 H 18 89/57 100 09/23/18 01:50 144 H 17 80/54 09/23/18 01:40 165 H 17 89/61 98 09/23/18 01:30 160 H 18 76/64 99 09/23/18 01:20 197 H 21 76/56 97 09/23/18 01:10 174 H 21 102/83 09/23/18 01:00 170 H 18 96/37 98 09/23/18 00:50 165 H 18 77/20 98 09/23/18 00:40 165 H 21 78/65 97 09/23/18 00:30 141 H 19 83/46 97 09/23/18 00:20 98.7 F 160 H 19 83/46 96 09/22/18 21:57 99.1 F 09/22/18 20:45 101.1 F H 09/22/18 20:00 18 09/22/18 19:00 99.9 F H 95 18 92/54 94 L 09/22/18 15:35 98.1 F 94 16 100/66 96 Intake and Output 09/22/18 09/23/18 09/23/18 22:59 06:59 14:59 Intake Total 3595 367.757 Output Total 985 50 Balance 2610 317.757 Intake: IV 2975 165 Magnesium Sulfate-D5w Pmx 100 100 1 gm In Dextrose/Water 1 100ml.bag @ 100 mls/hr IVPB Q1H [facility], [facility] Rx#: [id number] PRBC 620 Sodium Chloride 0.9% 1, 255 65 000 ml @ 65 mls/hr IV . [id number] [facility] Rx#:[id number] Sodium Chloride 0.9% 1, 2000 000 ml @ 999 mls/hr IV . Q1H1M ONE Rx#:[id number] Intake, IV Titration 202.757 Amount Amiodarone 450 mg In 202.757 Dextrose 5% in Water 250 ml @ 1 MG/MIN 33.33 mls/ hr IV .Q7H31M [facility], [facility] Rx#: [id number] Blood Product 620 Rc As-1 Unit 310 [id number] As-1 Unit 310 [id number] Output: Urine 985 50 Uretheral (Cee) 800 Other: Voiding Method Bedpan Indwelling Catheter Weight 135.9 kg - Constitutional General appearance: no acute distress - Respiratory Respiratory: bilateral: CTA - Cardiovascular Rhythm: irregularly irregular Heart sounds: normal: S1, S2 Results 09/23/18 06:58 09/23/18 06:58 Cardiac Enzymes 09/23/18 09/23/18 Range/Units 00:47 00:47 AST 88 H (14-36) U/L CK-MB (CK-2) 7.1 H (0.0-2.4) ng/mL Troponin I 0.038 H* (0.000-0.034) ng/mL CBC 09/22/18 09/23/18 Range/Units 23:52 06:58 WBC 8.6 7.5 (3.8-10.6) k/uL RBC 2.21 L 2.67 L (3.80-5.40) m/uL Hgb 7.0 L 8.3 L (11.4-16.0) gm/dL Hct 21.8 L 25.6 L (34.0-46.0) % Plt Count 223 202 (150-450) k/uL Comprehensive Metabolic Panel 09/23/18 09/23/18 Range/Units 00:47 06:58 Sodium 133 L 135 L (137-145) mmol/L Potassium 4.2 4.3 (3.5-5.1) mmol/L Chloride 109 H 108 H (98-107) mmol/L Carbon Dioxide 19 L 23 (22-30) mmol/L BUN 18 H 17 (7-17) mg/dL Creatinine 0.70 0.61 (0.52-1.04) mg/dL Glucose 121 H 119 H (74-99) mg/dL Calcium 7.5 L 7.6 L (8.4-10.2) mg/dL AST 88 H (14-36) U/L ALT 33 (9-52) U/L Alkaline Phosphatase 42 (38-126) U/L Total Protein 4.3 L (6.3-8.2) g/dL Albumin 2.1 L (3.5-5.0) g/dL Current Medications Generic Name Dose Route Start Last Admin Trade Name Freq PRN Reason Stop Dose Admin Hydrocodone Bitart/Acetaminophen 1 each 09/20/18 09:37 [place] 7.5-325 PO Q6H PRN Pain Scale 1 to 5 Hydrocodone Bitart/Acetaminophen 2 each 09/20/18 09:37 09/22/18 19:51 [place] 7.5-325 PO 2 each Q6H PRN Administration Pain Scale 6 to 10 Diazepam 2.5 mg 09/19/18 16:02 Valium PO Q8HR PRN Mild Spasms Hydromorphone HCl 0.5 mg 09/22/18 11:27 Dilaudid PO Q3HR PRN Pain Scale 1 to 3 Hydromorphone HCl 1 mg 09/22/18 11:28 Dilaudid PO Q3HR PRN Pain Scale 4 to 6 Hydromorphone HCl 2 mg 09/22/18 11:28 Dilaudid PO Q3HR PRN Pain Scale 7 to 10 Hydroxyzine Pamoate 25 mg 09/19/18 16:02 09/21/18 03:13 Vistaril PO 25 mg Q4HR PRN Administration Nausea, Anxiety, Pain Control Sodium Chloride 1,000 mls @ 65 mls/hr 09/21/18 14:30 09/23/18 00:58 Saline 0.9% IV 65 mls/hr .[id number] HARRY Administration Amiodarone HCl 450 mg/ 250 mls @ 33.33 mls/hr 09/23/18 00:15 09/23/18 07:02 Dextrose/Water IV 09/24/18 00:05 0.5 mg/min .Q7H31M HARRY 16.66 mls/hr Titration Protocol 1 MG/MIN Levothyroxine Sodium 50 mcg 09/20/18 06:30 09/23/18 06:12 Synthroid PO 50 mcg QAM@0630 HARRY Administration Lidocaine HCl 0.1 ml 09/19/18 05:32 09/19/18 14:05 .Xylocaine 1% Inj (10mg/Ml) For Iv Start INTRADERMA 0.1 ml PER PROTOCOL PRN Administration IV Start Magnesium Hydroxide 2,400 mg 09/19/18 16:02 Milk Of Magnesia PO DAILY PRN Constipation Miscellaneous Information 1 each 09/23/18 05:01 Magnesium Per Protocol MISCELLANE DAILY PRN Per Protocol Protocol Naloxone HCl 0.2 mg 09/19/18 16:02 Narcan IV Q2M PRN Opioid Reversal Ondansetron HCl 4 mg 09/19/18 16:02 09/21/18 08:54 Zofran IVP 4 mg DAILY PRN Administration Nausea And Vomiting Senna/Docusate Sodium 2 each 09/19/18 21:00 09/22/18 20:27 Senokot-S PO Not Given HS [facility], [facility] Intake and Output 09/22/18 09/23/18 09/23/18 22:59 06:59 14:59 Intake Total 3595 367.757 Output Total 985 50 Balance 2610 317.757 Intake: IV 2975 165 Magnesium Sulfate-D5w Pmx 100 100 1 gm In Dextrose/Water 1 100ml.bag @ 100 mls/hr IVPB Q1H HARRY Rx#: [id number] PRBC 620 Sodium Chloride 0.9% 1, 255 65 000 ml @ 65 mls/hr IV . [id number] [facility] Rx#:[id number] Sodium Chloride 0.9% 1, 2000 000 ml @ 999 mls/hr IV . Q1H1M ONE Rx#:[id number] Intake, IV Titration 202.757 Amount Amiodarone 450 mg In 202.757 Dextrose 5% in Water 250 ml @ 1 MG/MIN 33.33 mls/ hr IV .Q7H31M [facility], [facility] Rx#: [id number] Blood Product 620 Rc As-1 Unit 310 [id number] Rc As-1 Unit 310 [id number] Output: Urine 985 50 Uretheral (Cee) 800 Other: Voiding Method Bedpan Indwelling Catheter Weight 135.9 kg 09/23/18 06:58 09/23/18 06:58 Assessment and Plan Assessment: Assessment #1 status post right hip surgery #2 atrial fibrillation with rapid ventricular response. This is a new to the patient #3 thyroid disorder Plan #1 continue the amiodarone IV and switch to amiodarone by mouth #2 start the patient on metoprolol at the small dose in view of the margin a low blood pressure #3 increase the dose of oral anticoagulation, if it's okay from the surgical standpoint #4 follow-up on the echocardiogram. #5 follow-up with the patient
--- NOTE | 2018-09-23 09:12 | P.PN ---
Subjective Progress Note Date: 09/23/18 Principal diagnosis: R femoral fracture, AFib with RVR Patient with acute event overnight. Nurse notified overnight attending to evaluate patient with hypotension and acute changes in mentation. Patient was found to have SBP 90-105 range and HR 160-200. EKG was performed which showed SVT. ACLS protocol was followed and patient was given Adenosine 6 mg and 12 mg, converting her to A-Fib with RVR. She was given a 1L bolus, loaded with Amiodarone and trasferred to the MICU. She was transfused 2 units of PRBC. Patient was seen and examined. She complains of mild nausea but no vomiting. She also complains of anxiety. She denies chest pain, shortness of breath or palpitations. Currently has HR ~ 130s with SBP ~ 100. Objective - Vital Signs Vital signs: Vital Signs Temp 98.7 F 09/23/18 05:11 Pulse 133 H 09/23/18 07:00 Resp 17 09/23/18 07:00 BP 103/69 09/23/18 07:00 Pulse Ox 95 09/23/18 07:00 Intake & Output 09/22/18 09/23/18 09/23/18 18:59 06:59 18:59 Intake Total 3595 367.757 Output Total 985 50 Balance 2610 317.757 Weight 135.9 kg Intake: IV 2975 165 Magnesium Sulfate-D5w Pmx 100 100 1 gm In Dextrose/Water 1 100ml.bag @ 100 mls/hr IVPB Q1H [facility] Rx#: [id number] PRBC 620 Sodium Chloride 0.9% 1, 255 65 000 ml @ 65 mls/hr IV . [id number] [facility] Rx#:[id number] Sodium Chloride 0.9% 1, 2000 000 ml @ 999 mls/hr IV . Q1H1M [facility] Rx#:[id number] Intake, IV Titration 202.757 Amount Amiodarone 450 mg In 202.757 Dextrose 5% in Water 250 ml @ 1 MG/MIN 33.33 mls/ hr IV .Q7H31M [facility] Rx#: [id number] Blood Product 620 Rc As-1 Unit 310 [id number] Rc As-1 Unit 310 [id number] Output: Urine 985 50 Uretheral (Cee) 800 Other: Voiding Method Bedside Commode Indwelling Catheter # Voids 2 - Exam General: [non toxic], [no distress], [appears at stated age] Derm: [warm], [dry] Head: [atraumatic], [normocephalic], [symmetric] Eyes: [EOMI], [no lid lag], [anicteric sclera] Mouth: [no lip lesion], [mucus membranes moist] Cardiovascular: [S1S2 reg], [tachycardia, positive DP pulse bilateral] Lungs: [CTA bilateral], [no rhonchi, no rales] , [no accessory muscle use] Abdominal: [soft], [ nontender to palpation], [no guarding], [no appreciable organomegaly] Ext: [no gross muscle atrophy], [no edema], [no contractures], [R hip surgical dressing clean dry and intact] Neuro: [no focal neuro deficits] Psych: [Alert], [oriented], [appropriate affect] - Labs CBC & Chem 7: 09/23/18 06:58 09/23/18 06:58 Labs: Abnormal Lab Results - Last 24 Hours (Table) 09/22/18 09/22/18 09/22/18 Range/Units 23:18 23:52 23:52 RBC 2.21 L (3.80-5.40) m/uL Hgb 7.0 L (11.4-16.0) gm/dL Hct 21.8 L (34.0-46.0) % Sodium (137-145) mmol/L Chloride (98-107) mmol/L Carbon Dioxide (22-30) mmol/L BUN (7-17) mg/dL Glucose (74-99) mg/dL POC Glucose (mg/dL) 126 H (75-99) mg/dL Calcium (8.4-10.2) mg/dL AST (14-36) U/L CK-MB (CK-2) (0.0-2.4) ng/mL Troponin I (0.000-0.034) ng/mL Total Protein (6.3-8.2) g/dL Albumin (3.5-5.0) g/dL Crossmatch See Detail 09/23/18 09/23/18 09/23/18 Range/Units 00:14 00:47 00:47 RBC (3.80-5.40) m/uL Hgb (11.4-16.0) gm/dL Hct (34.0-46.0) % Sodium 133 L (137-145) mmol/L Chloride 109 H (98-107) mmol/L Carbon Dioxide 19 L (22-30) mmol/L BUN 18 H (7-17) mg/dL Glucose 121 H (74-99) mg/dL POC Glucose (mg/dL) 132 H (75-99) mg/dL Calcium 7.5 L (8.4-10.2) mg/dL AST 88 H (14-36) U/L CK-MB (CK-2) 7.1 H (0.0-2.4) ng/mL Troponin I 0.038 H* (0.000-0.034) ng/mL Total Protein 4.3 L (6.3-8.2) g/dL Albumin 2.1 L (3.5-5.0) g/dL Crossmatch 09/23/18 09/23/18 Range/Units 06:58 06:58 RBC 2.67 L (3.80-5.40) m/uL Hgb 8.3 L (11.4-16.0) gm/dL Hct 25.6 L (34.0-46.0) % Sodium 135 L (137-145) mmol/L Chloride 108 H (98-107) mmol/L Carbon Dioxide (22-30) mmol/L BUN (7-17) mg/dL Glucose 119 H (74-99) mg/dL POC Glucose (mg/dL) (75-99) mg/dL Calcium 7.6 L (8.4-10.2) mg/dL AST (14-36) U/L CK-MB (CK-2) (0.0-2.4) ng/mL Troponin I (0.000-0.034) ng/mL Total Protein (6.3-8.2) g/dL Albumin (3.5-5.0) g/dL Crossmatch Assessment and Plan Assessment: Assessment and Plan 1. Right femoral head fracture 2. Atrial fibrillation with RVR 3. Anemia secondary to acute blood loss from surgery 4. Elevated troponins 5. Degenerative joint disease of the right hip status post total right hip arthroplasty POD 2 6. Hypothyroidism 1. Discovered on x-ray. Complication of surgery. [place] and Dilaudid as needed for pain control. Meloxicam daily. POD 3. Weightbearing as per orthopedic recommendations. Discontinue Xarelto due to acute drop in hemoglobin , I will restart Xarelto if Hg improves in the PM. Will follow orthopedic, PT and OT recommendations. 2. ACLS overnight for hypotension and changes in overall condition. SVT initially broken with adenosine, converted to A-Fib with RVR. Started on Amiodarone drip and transferred to MICU. Likely due to drop in hemoglobin, will transfuse 2 units PRBC. HR continues to be in the 130's with SBP maintaining in the low 100's. Cardiology consulted, will follow recommendations. Telemetry monitoring. Rule out acute coronary syndrome. Will follow Echocardiogram results. Follow TSH results. 3. Hg from 7.0 to 8.3 s/p 2 unit PRBC. Largely due to acute blood loss from surgery, surgical site appears clean with no hematoma. Will follow hemoglobin around 5PM. Telemetry monitoring. Transfuse if Hg < 7.0. 4. Likely demand ischemia from A-Fib with RVR and acute blood loss. Trop 0.038 with EKG showing A-Fib with RVR. Will Trend Trop/EKG to rule out acute coronary syndrome. 5. Management as above. POD4. 6. Continue Synthroid 50 g by mouth daily. Patient transferred to ICU for A-Fib with RVR, started on Amiodarone drip. We will follow Cardiology recommendations. She has been transfused 2 units of PRBC. Trend H&H.
[2018-09-23] MEDS: HYDROcodone/APAP 7.5-325MG 1 EACH TAB PO PRN ×2 (09:22→15:45)
[2018-09-23] MEDS ORDERED: METOPROLOL TARTRATE 12.5 MG TAB PO SCH (09:30)
[2018-09-23] MEDS ORDERED: RIVAROXABAN 10 MG TAB PO SCH (10:00)
[2018-09-23] MEDS ORDERED: RIVAROXABAN 10 MG TAB PO STA (10:59)
--- NOTE | 2018-09-23 11:31 | P.PN ---
Subjective Progress Note Date: 09/23/18 Principal diagnosis: Status post open reduction internal fixation with revision total hip arthroplasty. Periprosthetic fracture right femur. This is a 68-year-old female who is status post periprosthetic fracture of the right total hip arthroplasty. She had open reduction showed fixation with revision of the stem on 09/21/2018. She developed atrial fibrillation with RVR last evening and was transferred to the intensive care unit. She is stable from an orthopedic standpoint. She has no new orthopedic complaints or concerns today. Vital signs are fairly stable. Her heart rate continues to be elevated at 133. Objective - Vital Signs Vital signs: Vital Signs Temp 98.7 F 09/23/18 05:11 Pulse 133 H 09/23/18 07:00 Resp 17 09/23/18 07:00 BP 103/69 09/23/18 07:00 Pulse Ox 95 09/23/18 07:00 Intake & Output 09/22/18 09/23/18 09/23/18 18:59 06:59 18:59 Intake Total 3595 375.532 Output Total 985 50 Balance 2610 325.532 Weight 135.9 kg Intake: IV 2975 165 Magnesium Sulfate-D5w Pmx 100 100 1 gm In Dextrose/Water 1 100ml.bag @ 100 mls/hr IVPB Q1H [facility] Rx#: [id number] PRBC 620 Sodium Chloride 0.9% 1, 255 65 000 ml @ 65 mls/hr IV . [id number] [facility] Rx#:[id number] Sodium Chloride 0.9% 1, 2000 000 ml @ 999 mls/hr IV . Q1H1M [facility] Rx#:[id number] Intake, IV Titration 210.532 Amount Amiodarone 450 mg In 210.532 Dextrose 5% in Water 250 ml @ 1 MG/MIN 33.33 mls/ hr IV .Q7H31M [facility] Rx#: [id number] Blood Product 620 Rc As-1 Unit 310 [id number] Rc As-1 Unit 310 [id number] Output: Urine 985 50 Uretheral (Cee) 800 Other: Voiding Method Bedside Commode Indwelling Catheter # Voids 2 - Exam This is a pleasant 68-year-old female in no acute distress. She is alert and oriented 3. Exam of the right lower extremity reveals that her dressing is clean, dry and intact. There is no erythema. She has full foot and ankle motion without difficulty or pain. Neurovascular status to the lower extremity is intact. - Labs CBC & Chem 7: 09/23/18 06:58 09/23/18 06:58 Labs: Abnormal Lab Results - Last 24 Hours (Table) 09/22/18 09/22/18 09/22/18 Range/Units 23:18 23:52 23:52 RBC 2.21 L (3.80-5.40) m/uL Hgb 7.0 L (11.4-16.0) gm/dL Hct 21.8 L (34.0-46.0) % Sodium (137-145) mmol/L Chloride (98-107) mmol/L Carbon Dioxide (22-30) mmol/L BUN (7-17) mg/dL Glucose (74-99) mg/dL POC Glucose (mg/dL) 126 H (75-99) mg/dL Calcium (8.4-10.2) mg/dL Magnesium (1.6-2.3) mg/dL AST (14-36) U/L CK-MB (CK-2) (0.0-2.4) ng/mL Troponin I (0.000-0.034) ng/mL Total Protein (6.3-8.2) g/dL Albumin (3.5-5.0) g/dL Crossmatch See Detail 09/23/18 09/23/18 09/23/18 Range/Units 00:14 00:47 00:47 RBC (3.80-5.40) m/uL Hgb (11.4-16.0) gm/dL Hct (34.0-46.0) % Sodium 133 L (137-145) mmol/L Chloride 109 H (98-107) mmol/L Carbon Dioxide 19 L (22-30) mmol/L BUN 18 H (7-17) mg/dL Glucose 121 H (74-99) mg/dL POC Glucose (mg/dL) 132 H (75-99) mg/dL Calcium 7.5 L (8.4-10.2) mg/dL Magnesium (1.6-2.3) mg/dL AST 88 H (14-36) U/L CK-MB (CK-2) 7.1 H (0.0-2.4) ng/mL Troponin I 0.038 H* (0.000-0.034) ng/mL Total Protein 4.3 L (6.3-8.2) g/dL Albumin 2.1 L (3.5-5.0) g/dL Crossmatch 09/23/18 09/23/18 09/23/18 Range/Units 06:58 06:58 06:58 RBC 2.67 L (3.80-5.40) m/uL Hgb 8.3 L (11.4-16.0) gm/dL Hct 25.6 L (34.0-46.0) % Sodium 135 L (137-145) mmol/L Chloride 108 H (98-107) mmol/L Carbon Dioxide (22-30) mmol/L BUN (7-17) mg/dL Glucose 119 H (74-99) mg/dL POC Glucose (mg/dL) (75-99) mg/dL Calcium 7.6 L (8.4-10.2) mg/dL Magnesium 2.4 H (1.6-2.3) mg/dL AST (14-36) U/L CK-MB (CK-2) (0.0-2.4) ng/mL Troponin I (0.000-0.034) ng/mL Total Protein (6.3-8.2) g/dL Albumin (3.5-5.0) g/dL Crossmatch Assessment and Plan (1) Periprosthetic fracture around internal prosthetic right hip joint Current Visit: Yes Status: Acute Code(s): M97.01XA - PERIPROSTH FRACTURE AROUND INTERNAL PROSTH R HIP JT, INIT SNOMED Code(s): 692990788 (2) S/P total hip arthroplasty Current Visit: Yes Status: Acute Code(s): Z96.649 - PRESENCE OF UNSPECIFIED ARTIFICIAL HIP JOINT SNOMED Code(s): 226669403085 (3) Status post open reduction with internal fixation of fracture Current Visit: Yes Status: Acute Code(s): Z96.7 - PRESENCE OF OTHER BONE AND TENDON IMPLANTS; Z87.81 - PERSONAL HISTORY OF (HEALED) TRAUMATIC FRACTURE SNOMED Code(s): 405798718 Plan: The clinical and x-ray findings are discussed the patient. I have advised nursing staff that it is okay to increase the Xarelto to 15mg daily. She is nonweightbearing to the right lower extremity with walker. We will continue to follow orthopedically.
[2018-09-23] MEDS ORDERED: HYDROmorphone 1 MG/ML 1 ML SYRINGE IVP PRN (11:36)
[2018-09-23] MEDS: HYDROmorphone 0.5 MG/0.5 ML SYRINGE IVP PRN (11:57)
[2018-09-23 12:26] LABS: HCT 25.1 % (34.0-46.0); HGB 8.6 gm/dL (11.4-16.0); MCHC 34.3 g/dL (31.0-37.0); MCV 93.3 fL (80.0-100.0); Mean Platelet Volume 7.4; Platelet Count 267 k/uL (150-450); RBC 2.69 m/uL (3.80-5.40); RDW 13.6 % (11.5-15.5); WBC 8.6 k/uL (3.8-10.6)
--- NOTE | 2018-09-23 12:56 | ECHOF ---
Referral Reason:new onset afib with RVR MEASUREMENTS -------- HEIGHT: 165.1 cm WEIGHT: 127.0 kg BP: 106/64 RVIDd: 3.4 cm (< 3.3) IVSd: 1.4 cm (0.6 - 1.1) LVIDd: 4.1 cm (3.9 - 5.3) LVPWd: 1.6 cm (0.6 - 1.1) IVSs: 1.4 cm LVIDs: 4.2 cm LVPWs: 1.7 cm LA Diam: 4.7 cm (2.7 - 3.8) Ao Diam: 3.8 cm (2.0 - 3.7) AV Cusp: 2.6 cm (1.5 - 2.6) LA Diam: 3.0 cm (2.7 - 3.8) MV EXCURSION: 21.171 mm (> 18.000) MV EF SLOPE: 211 mm/s (70 - 150) EPSS: 0.6 cm MV E Zeb: 1.06 m/s MV DecT: 178 ms MV A Zeb: 0.07 m/s MV E/A Ratio: 14.40 RAP: 5.00 mmHg RVSP: 25.57 mmHg FINDINGS -------- Atrial fibrillation. Morbid Obesity The left ventricular size is normal. There is moderate concentric left ventricular hypertrophy. O verall left ventricular systolic function is low-normal with, an EF between 50 - 55 %. The right ventricle is normal in size. The left atrium is moderately dilated. The right atrial size is normal. The aortic valve is trileaflet, and appears structurally normal. No aortic stenosis or regurgitation. Mild mitral annular calcification present. Mild mitral regurgitation is present. Mild tricuspid regurgitation present. There is no evidence of pulmonary hypertension. The right v entricular systolic pressure, as measured by Doppler, is 25.57mmHg. Trace/mild (physiologic) pulmonic regurgitation. The aortic root size is normal. Echo free space represents a pericardial fat pad. CONCLUSIONS -------- 1. Morbid Obesity 2. The left ventricular size is normal. 3. There is moderate concentric left ventricular hypertrophy. 4. Overall left ventricular systolic function is low-normal with, an EF between 50 - 55 %. 5. The right ventricle is normal in size. 6. The left atrium is moderately dilated. 7. The right atrial size is normal. 8. The aortic valve is trileaflet, and appears structurally normal. No aortic stenosis or regurgitati on. 9. Mild mitral annular calcification present. 10. Mild mitral regurgitation is present. 11. Mild tricuspid regurgitation present. 12. There is no evidence of pulmonary hypertension. 13. The right ventricular systolic pressure, as measured by Doppler, is 25.57mmHg. 14. Trace/mild (physiologic) pulmonic regurgitation. 15. The aortic root size is normal. 16. Echo free space represents a pericardial fat pad. SITE SAFETY COORDINATOR: Ellie Washington RDCS
--- NOTE | 2018-09-23 14:11 | P.CNPUL ---
History of Present Illness Consult date: 09/23/18 Chief complaint: New onset atrial fibrillation History of present illness: 58-year-old female patient, obese with a BMI of 48.4, who is status post postprostatic fracture of the right total hip arthroplasty. The patient had open reduction and fixation with revision of the stem on 09/21/2018. Overnight the patient developed A. fib RVR. The patient was having rapid ventricular response to the point where the patient's heart rate went up to the 190. He was given adenosine and later on he was given amiodarone which slowed down his rate. He became hypotensive and the patient was given 2 L of IV fluid bolus and was brought to the intensive care unit. Currently is on an amiodarone maintenance of 0.5 mg per minute. She is in atrial fibrillation. Rate is under better control in the 120 range. She is having no chest pain. No palpitations. No dizziness. No syncope. Echocardiogram performed this morning showed no valvular abnormalities in the LV function was essentially within normal limits. The patient was started on anticoagulation and the patient is on Xarelto 50 mg by mouth on a daily basis. He was also started on small dose metoprolol. The patient is on thyroid hormone replacement on outpatient basis for hypothyroidism and TSH is at 1.1. First troponin is been negative at 0.038. Resume blood work and electrodes are all within normal limits. Hemoglobin is at 8.6. No history of any coronary artery disease. No history of congestion heart failure. Most of obstructive sleep apnea. Review of Systems Constitutional: Denies chills, Denies fever Eyes: denies as per HPI, denies blurred vision, denies bulging eye, denies decreased vision, denies diplopia, denies discharge, denies dry eye, denies irritation, denies itching, denies pain, denies photophobia, denies loss of peripheral vision, denies loss of vision, denies tunnel vision/blind spots Ears: deny: decreased hearing, ear discharge, earache, tinnitus Ears, nose, mouth and throat: Reports as per HPI Breasts: absent: as per HPI, change in shape, gynecomastia, masses, nipple discharge, pain, skin changes, swelling Cardiovascular: Reports irregular heart beat, Reports palpitations, Reports shortness of breath Respiratory: Denies cough Gastrointestinal: Denies abdominal pain, Denies diarrhea, Denies nausea, Denies vomiting Genitourinary: Denies dysuria, Denies hematuria Menstruation: Reports as per HPI Musculoskeletal: Reports as per HPI (Hip pain and the surgical wound site is dry clean and intact ), Reports gait dysfunction, Reports low back pain Musculoskeletal: absent: ankle pain, ankle stiffness, ankle swelling, as per HPI , elbow pain, elbow stiffness, elbow swelling, foot pain, foot stiffness, foot swelling, hand pain, hand stiffness, hand swelling, hip pain, hip stiffness, hip swelling, knee pain, knee stiffness, knee swelling, shoulder pain, shoulder stiffness, shoulder swelling, wrist pain, wrist stiffness, wrist swelling Integumentary: Reports as per HPI Neurological: Reports as per HPI Psychiatric: Reports as per HPI Endocrine: Reports as per HPI, Reports flushing Allergic/Immunologic: Reports as per HPI Past Medical History Past Medical History: Cancer, Osteoarthritis (OA), Thyroid Disorder Additional Past Medical History / Comment(s): HX OF BREAST CANCER WITH CHEMO ( 1993)., USES CANE. History of Any Multi-Drug Resistant Organisms: None Reported Past Surgical History: Breast Surgery Additional Past Surgical History / Comment(s): LEFT MASTECTOMY WITH LYMPH NODE REMOVAL Past Anesthesia/Blood Transfusion Reactions: No Reported Reaction Additional Past Anesthesia/Blood Transfusion Reaction / Comment(s): STATES WHEN SHE LAYS ON HER SIDE HER HEART BEATS IRREGULAR. Smoking Status: Former smoker - Past Family History Father Family Medical History: Cancer Additional Family Medical History / Comment(s): LUNG CANCER Sister(s) Family Medical History: Cancer Additional Family Medical History / Comment(s): BREAST CANCER Medications and Allergies Home Medications Medication Instructions Recorded Confirmed Type Levothyroxine Sodium [Synthroid] 50 mcg PO QAM 10/07/17 09/19/18 History Naproxen 500 mg PO BID 09/13/18 09/19/18 History Allergies Allergy/AdvReac Type Severity Reaction Status Date / Time nickel Allergy Unknown SKIN Verified 09/19/18 16:28 IRRITATION Physical Exam Vitals: Vital Signs Temp Pulse Pulse Resp BP BP Pulse Ox 09/23/18 07:00 133 H 17 103/69 95 09/23/18 06:30 131 H 15 107/70 92 L 09/23/18 06:00 133 H 10 L 111/69 94 L 09/23/18 05:30 130 H 14 117/81 96 09/23/18 05:11 98.7 F 130 H 15 114/81 09/23/18 05:00 125 H 13 106/71 93 L 09/23/18 04:30 130 H 15 104/71 94 L 09/23/18 04:14 98.1 F 133 H 17 104/71 09/23/18 04:10 128 H 18 109/69 98 09/23/18 04:00 98.5 F 130 H 17 107/65 99 09/23/18 03:50 131 H 18 105/70 99 09/23/18 03:44 98.5 F 130 H 15 107/65 09/23/18 03:40 129 H 14 107/67 100 09/23/18 03:34 98.3 F 129 H 16 107/67 09/23/18 03:30 131 H 17 99/72 100 09/23/18 03:25 98.9 F 126 H 16 99/72 09/23/18 03:20 125 H 15 90/67 99 09/23/18 03:10 128 H 15 95/62 100 09/23/18 03:00 147 H 16 102/60 100 09/23/18 02:54 98.9 F 133 H 16 102/60 09/23/18 02:50 130 H 12 98/64 100 09/23/18 02:40 144 H 16 90/54 100 09/23/18 02:30 158 H 17 97/63 99 09/23/18 02:24 98.7 F 149 H 19 97/63 100 09/23/18 02:20 154 H 15 96/52 100 09/23/18 02:14 98.7 F 142 H 16 96/56 99 09/23/18 02:10 158 H 17 91/76 99 09/23/18 02:00 168 H 18 89/57 100 09/23/18 01:50 144 H 17 80/54 09/23/18 01:40 165 H 17 89/61 98 09/23/18 01:30 160 H 18 76/64 99 09/23/18 01:20 197 H 21 76/56 97 09/23/18 01:10 174 H 21 102/83 09/23/18 01:00 170 H 18 96/37 98 09/23/18 00:50 165 H 18 77/20 98 09/23/18 00:40 165 H 21 78/65 97 09/23/18 00:30 141 H 19 83/46 97 09/23/18 00:20 98.7 F 160 H 19 83/46 96 09/22/18 21:57 99.1 F 09/22/18 20:45 101.1 F H 09/22/18 20:00 18 09/22/18 19:00 99.9 F H 95 18 92/54 94 L 09/22/18 15:35 98.1 F 94 16 100/66 96 Intake and Output 09/22/18 09/23/18 09/23/18 22:59 06:59 14:59 Intake Total 3595 375.532 Output Total 985 50 Balance 2610 325.532 Intake: IV 2975 165 Magnesium Sulfate-D5w Pmx 100 100 1 gm In Dextrose/Water 1 100ml.bag @ 100 mls/hr IVPB Q1H [facility] Rx#: [id number] PRBC 620 Sodium Chloride 0.9% 1, 255 65 000 ml @ 65 mls/hr IV . [id number] [facility] Rx#:[id number] Sodium Chloride 0.9% 1, 2000 000 ml @ 999 mls/hr IV . Q1H1M [facility] Rx#:[id number] Intake, IV Titration 210.532 Amount Amiodarone 450 mg In 210.532 Dextrose 5% in Water 250 ml @ 1 MG/MIN 33.33 mls/ hr IV .Q7H31M [facility] Rx#: [id number] Blood Product 620 Rc As-1 Unit 310 [id number] Rc As-1 Unit 310 [id number] Output: Urine 985 50 Uretheral (Cee) 800 Other: Voiding Method Bedpan Indwelling Catheter Weight 135.9 kg Gen. appearance, comfortable likely distress alert and oriented 3 Head exam was generally normal. There was no scleral icterus or corneal arcus. Mucous membranes were moist. Neck was supple and without jugular venous distension, thyromegaly, or carotid bruits. Carotids were easily palpable bilaterally. There was no adenopathy. The patient has crowding of the posterior oropharynx Lungs were clear to auscultation and percussion, and with normal diaphragmatic excursion. No wheezes or rales were noted. Heart sounds are irregular S1 and S2 and tachycardic.Cardiac exam revealed the PMI to be normally situated and sized. The rhythm was irregular and no extrasystoles were noted during several minutes of auscultation. The first and second heart sounds were normal and physiologic splitting of the second heart sound was noted. There were no murmurs, rubs, clicks, or gallops. Abdominal exam revealed normal bowel sounds. The abdomen was soft, non-tender, and without masses, organomegaly, or appreciable enlargement of the abdominal aorta. Examination of the extremities revealed easily palpable radial, femoral and pedal pulses. There was no cyanosis, clubbing or edema.Exam of the right lower extremity reveals that her dressing is clean, dry and intact. There is no erythema. She has full foot and ankle motion without difficulty or pain Examination of the skin revealed no evidence of significant rashes, suspicious appearing nevi or other concerning lesions. Neurologically awake and alert and there is no focal neurological deficits Results - Laboratory Findings CBC and BMP: 09/23/18 12:12 09/23/18 06:58 Abnormal lab findings: Abnormal Labs 09/20/18 09/20/18 09/21/18 07:13 07:13 11:36 RBC 3.54 L 3.02 L Hgb 11.3 L 9.6 L D Hct 33.6 L 28.3 L Neutrophils # 7.9 H Lymphocytes # 0.7 L Sodium Chloride Carbon Dioxide BUN 22 H Glucose 145 H POC Glucose (mg/dL) Calcium Magnesium AST CK-MB (CK-2) Troponin I Total Protein 5.8 L Albumin 3.3 L Crossmatch 09/21/18 09/22/18 09/22/18 15:16 06:46 23:18 RBC 2.78 L 2.29 L Hgb 8.8 L 7.2 L D Hct 27.0 L 21.6 L Neutrophils # Lymphocytes # 0.7 L Sodium Chloride Carbon Dioxide BUN Glucose POC Glucose (mg/dL) 126 H Calcium Magnesium AST CK-MB (CK-2) Troponin I Total Protein Albumin Crossmatch 09/22/18 09/22/18 09/23/18 23:52 23:52 00:14 RBC 2.21 L Hgb 7.0 L Hct 21.8 L Neutrophils # Lymphocytes # Sodium Chloride Carbon Dioxide BUN Glucose POC Glucose (mg/dL) 132 H Calcium Magnesium AST CK-MB (CK-2) Troponin I Total Protein Albumin Crossmatch See Detail 09/23/18 09/23/18 09/23/18 00:47 00:47 06:58 RBC 2.67 L Hgb 8.3 L Hct 25.6 L Neutrophils # Lymphocytes # Sodium 133 L Chloride 109 H Carbon Dioxide 19 L BUN 18 H Glucose 121 H POC Glucose (mg/dL) Calcium 7.5 L Magnesium AST 88 H CK-MB (CK-2) 7.1 H Troponin I 0.038 H* Total Protein 4.3 L Albumin 2.1 L Crossmatch 09/23/18 09/23/18 09/23/18 06:58 06:58 12:12 RBC 2.69 L Hgb 8.6 L Hct 25.1 L Neutrophils # Lymphocytes # Sodium 135 L Chloride 108 H Carbon Dioxide BUN Glucose 119 H POC Glucose (mg/dL) Calcium 7.6 L Magnesium 2.4 H AST CK-MB (CK-2) Troponin I Total Protein Albumin Crossmatch - Diagnostic Findings Chest x-ray: image reviewed Assessment and Plan Plan: Assessment 1 new-onset atrial fibrillation with rapid ventricular response 2 status post periprosthetic fracture and the patient underwent open reduction internal fixation of the fracture 3 obesity 4 history of breast cancer 5 history of hypothyroidism, thyroid functions are within normal limits 6 osteoarthritis Plan Continue amiodarone loading dose and subsequent maintenance. Continue beta anitha 12.5 mg of metoprolol for rate control. Monitor the blood pressure embolus with IV fluids should the patient develop and hypotension. Regulate the anticoagulation my recommendation is to utilize Xarelto 50 mg twice and regards to the atrial fibrillation. The pain Control with Dilaudid. Echocardiogram is within normal limits. Thyroid functions are within normal limits. We'll continue to follow.
[2018-09-23 17:14] LABS: HCT 25.8 % (34.0-46.0); HGB 8.7 gm/dL (11.4-16.0); MCH 31.6 pg (25.0-35.0); MCHC 33.8 g/dL (31.0-37.0); MCV 93.4 fL (80.0-100.0); Mean Platelet Volume 7.5; Platelet Count 223 k/uL (150-450); RBC 2.77 m/uL (3.80-5.40); RDW 13.7 % (11.5-15.5); WBC 8.5 k/uL (3.8-10.6)
[2018-09-23] MEDS: SENNOSIDES-DOCUSATE SODIUM 1 EACH TAB PO SCH (21:26)
[2018-09-23] MEDS: METOPROLOL TARTRATE 25 MG TAB PO SCH (21:28)
[2018-09-24] MEDS: HYDROmorphone 2 MG/ML 1 ML SYRINGE IVP PRN (00:46)
[2018-09-24] MEDS: AMIODARONE 200 MG TAB PO SCH ×3 (01:24→20:44)
[2018-09-24] MEDS: AMIODARONE 450 MG in DEXTROSE 5% IN WATER 250 ML IV SCH ×4 (01:36)
[2018-09-24 05:28] LABS: Basophils % (A) 0 %; Eosinophils # (A) 0.1 k/uL (0-0.7); Eosinophils % (A) 1 %; HCT 23.9 % (34.0-46.0); HGB 8.3 gm/dL (11.4-16.0); Lymphocytes # (A) 1.2 k/uL (1.0-4.8); Lymphocytes % (A) 14 %; MCH 32.2 pg (25.0-35.0); MCHC 34.7 g/dL (31.0-37.0); MCV 92.7 fL (80.0-100.0); Monocytes # (A) 0.6 k/uL (0-1.0); Monocytes % (A) 7 %; Neutrophils # (A) 6.3 k/uL (1.3-7.7); Neutrophils % (A) 76 %; Platelet Count 237 k/uL (150-450); RBC 2.58 m/uL (3.80-5.40); RDW 13.6 % (11.5-15.5); WBC 8.2 k/uL (3.8-10.6)
[2018-09-24 05:44] LABS: Anion Gap 4 mmol/L; Blood Urea Nitrogen 15 mg/dL (7-17); Calcium 7.9 mg/dL (8.4-10.2); Carbon Dioxide 23 mmol/L (22-30); Chloride 107 mmol/L (98-107); Glucose 111 mg/dL (74-99); Magnesium 2.3 mg/dL (1.6-2.3); Phosphorus 1.9 mg/dL (2.5-4.5); Sodium 134 mmol/L (137-145)
[2018-09-24 05:52] LABS: Potassium 4.6 mmol/L (3.5-5.1)
[2018-09-24] MEDS ORDERED: Phosphorus Replacement Protoco 1 EACH MISC MISCELLANE PRN (06:04)
[2018-09-24] MEDS ORDERED: SODIUM PHOSPHATE 10 MMOL in SODIUM CHLORIDE 0.9% 250 ML IVPB SCH (06:15)
[2018-09-24] MEDS ORDERED: SODIUM GLYCEROPHOSPHATE 20 MMOL in SODIUM CHLORIDE 0.9% 250 ML IV ONE (06:15)
[2018-09-24] MEDS: SODIUM CHLORIDE 0.9% 1,000 ML IV SCH ×2 (06:16→20:44)
[2018-09-24] MEDS: LEVOTHYROXINE 50 MCG TAB PO SCH (06:16)
[2018-09-24] MEDS: HYDROcodone/APAP 7.5-325MG 1 EACH TAB PO PRN ×2 (06:20→15:48)
[2018-09-24] MEDS ORDERED: RIVAROXABAN 10 MG TAB PO SCH (09:00)
--- NOTE | 2018-09-24 10:45 | P.PN ---
Subjective Progress Note Date: 09/24/18 On 09/24/2018, the patient is doing essentially the same. This morning she is in atrial flutter rhythm with 2-1 conduction block and the heart rate is in the 130 range. The patient was loaded with amiodarone and currently she is maintained on 400 mg twice a day. Meanwhile, the patient's blood pressures running lower. The mean arterial pressure 70 however her blood pressure is 98/ 57. As such, the beta anitha was held. No chest pain. No palpitation. No dizziness. No syncope. The troponins were 0.2 and 0.1 respectively and the patient remains free of any chest pain. EKG is not showing any acute ischemic changes of the echocardiogram is within normal limits. No respiratory distress. No cough or sputum production. No issues with pain and the pain is under good control. He was stable at 8.3. The patient is on Xarelto 15 mg by mouth daily. No neurologic deficits. Objective - Vital Signs Vital signs: Vital Signs Temp 98.9 F 09/24/18 08:00 Pulse 142 H 09/24/18 10:00 Resp 12 09/24/18 10:00 BP 98/57 09/24/18 10:00 Pulse Ox 90 L 09/24/18 10:00 Intake & Output 09/23/18 09/24/18 09/24/18 18:59 06:59 18:59 Intake Total 2463.532 1053.671 510 Output Total 495 580 235 Balance 1968.532 473.671 275 Weight 144.1 kg Intake: IV 880 786 510 Magnesium Sulfate-D5w Pmx 100 1 gm In Dextrose/Water 1 100ml.bag @ 100 mls/hr IVPB Q1H [facility] Rx#: [id number] PRBC 6 Sodium Chloride 0.9% 1, 780 780 260 000 ml @ 65 mls/hr IV . [id number] [facility] Rx#:[id number] Sodium Glycerophosphate 250 20 mmol In Sodium Chloride 0.9% 250 ml @ 31 .25 mls/hr IV ONCE ONE Rx #:[id number] Intake, IV Titration 210.532 267.671 Amount Amiodarone 450 mg In 210.532 267.671 Dextrose 5% in Water 250 ml @ 1 MG/MIN 33.33 mls/ hr IV .Q7H31M [facility] Rx#: [id number] Oral 1373 Output: Urine 495 580 235 Other: Voiding Method Indwelling Catheter Indwelling Catheter Indwelling Catheter - Exam Gen. appearance, comfortable likely distress alert and oriented 3 Head exam was generally normal. There was no scleral icterus or corneal arcus. Mucous membranes were moist. Neck was supple and without jugular venous distension, thyromegaly, or carotid bruits. Carotids were easily palpable bilaterally. There was no adenopathy. The patient has crowding of the posterior oropharynx Lungs were clear to auscultation and percussion, and with normal diaphragmatic excursion. No wheezes or rales were noted. Heart sounds are irregular S1 and S2 and tachycardic.Cardiac exam revealed the PMI to be normally situated and sized. The rhythm was irregular and no extrasystoles were noted during several minutes of auscultation. The first and second heart sounds were normal and physiologic splitting of the second heart sound was noted. There were no murmurs, rubs, clicks, or gallops. Abdominal exam revealed normal bowel sounds. The abdomen was soft, non-tender, and without masses, organomegaly, or appreciable enlargement of the abdominal aorta. Examination of the extremities revealed easily palpable radial, femoral and pedal pulses. There was no cyanosis, clubbing or edema.Exam of the right lower extremity reveals that her dressing is clean, dry and intact. There is no erythema. She has full foot and ankle motion without difficulty or pain Examination of the skin revealed no evidence of significant rashes, suspicious appearing nevi or other concerning lesions. Neurologically awake and alert and there is no focal neurological deficits - Labs CBC & Chem 7: 09/24/18 04:53 09/24/18 04:53 Labs: Abnormal Lab Results - Last 24 Hours (Table) 09/23/18 09/23/18 09/23/18 Range/Units 12:12 16:45 16:45 RBC 2.69 L 2.77 L (3.80-5.40) m/uL Hgb 8.6 L 8.7 L (11.4-16.0) gm/dL Hct 25.1 L 25.8 L (34.0-46.0) % Sodium (137-145) mmol/L Glucose (74-99) mg/dL Calcium (8.4-10.2) mg/dL Phosphorus (2.5-4.5) mg/dL Troponin I 0.225 H* (0.000-0.034) ng/mL 09/24/18 09/24/18 09/24/18 Range/Units 00:56 04:53 04:53 RBC 2.58 L (3.80-5.40) m/uL Hgb 8.3 L (11.4-16.0) gm/dL Hct 23.9 L (34.0-46.0) % Sodium 134 L (137-145) mmol/L Glucose 111 H (74-99) mg/dL Calcium 7.9 L (8.4-10.2) mg/dL Phosphorus 1.9 L (2.5-4.5) mg/dL Troponin I 0.167 H* (0.000-0.034) ng/mL Microbiology - Last 24 Hours (Table) 09/23/18 00:58 Blood Culture - Preliminary Blood No Growth after 24 hours Assessment and Plan Plan: Assessment 1 new-onset atrial fibrillation with rapid ventricular response. The patient was loaded with amiodarone. The patient this morning is in a flutter rhythm with 2 to one conduction at the rate of 130. The patient is on oral amiodarone. Patient is supposed to be also metoprolol 25 mg by mouth twice a day. This was held due to relative hypotension. Patient is on Xarelto. Conjunctivae on the case. EKG within normal limits. The patient has minimal troponin leak. 2 status post periprosthetic fracture and the patient underwent open reduction internal fixation of the fracture 3 obesity 4 history of breast cancer 5 history of hypothyroidism, thyroid functions are within normal limits 6 osteoarthritis Plan Continue amiodarone and continue metoprolol as long as the patient's blood pressure tolerates. Continue Xarelto. Consider digoxin for rate control. We' ll continue to follow. Keep the patient ICU in regards to her tachycardia and a flutter.
--- NOTE | 2018-09-24 11:30 | P.PN ---
Subjective Progress Note Date: 09/24/18 Principal diagnosis: Status post open reduction internal fixation with revision total hip arthroplasty. Periprosthetic fracture right femur. This is a 68-year-old female who is status post periprosthetic fracture of the right total hip arthroplasty. She had open reduction showed fixation with revision of the stem on 09/21/2018. She developed atrial fibrillation with RVR and was transferred to the intensive care unit. She is stable from an orthopedic standpoint. She has no new orthopedic complaints or concerns today. Vital signs are fairly stable. Therapy was in this morning and said she did fairly well with ambulation. Objective - Vital Signs Vital signs: Vital Signs Temp 98.9 F 09/24/18 08:00 Pulse 142 H 09/24/18 10:00 Resp 12 09/24/18 10:00 BP 98/57 09/24/18 10:00 Pulse Ox 90 L 09/24/18 10:00 Intake & Output 09/23/18 09/24/18 09/24/18 18:59 06:59 18:59 Intake Total 2463.532 1053.671 510 Output Total 495 580 235 Balance 1968.532 473.671 275 Weight 144.1 kg Intake: IV 880 786 510 Magnesium Sulfate-D5w Pmx 100 1 gm In Dextrose/Water 1 100ml.bag @ 100 mls/hr IVPB Q1H [facility] Rx#: [id number] PRBC 6 Sodium Chloride 0.9% 1, 780 780 260 000 ml @ 65 mls/hr IV . [id number] [facility] Rx#:[id number] Sodium Glycerophosphate 250 20 mmol In Sodium Chloride 0.9% 250 ml @ 31 .25 mls/hr IV ONCE ONE Rx #:[id number] Intake, IV Titration 210.532 267.671 Amount Amiodarone 450 mg In 210.532 267.671 Dextrose 5% in Water 250 ml @ 1 MG/MIN 33.33 mls/ hr IV .Q7H31M [facility] Rx#: [id number] Oral 1373 Output: Urine 495 580 235 Other: Voiding Method Indwelling Catheter Indwelling Catheter Indwelling Catheter - Exam This is a pleasant 68-year-old female in no acute distress. She is alert and oriented 3. Exam of the right lower extremity reveals that her dressing is clean, dry and intact. There is no erythema. She has full foot and ankle motion without difficulty or pain. Neurovascular status to the lower extremity is intact. - Labs CBC & Chem 7: 09/24/18 04:53 09/24/18 04:53 Labs: Abnormal Lab Results - Last 24 Hours (Table) 09/23/18 09/23/18 09/23/18 Range/Units 12:12 16:45 16:45 RBC 2.69 L 2.77 L (3.80-5.40) m/uL Hgb 8.6 L 8.7 L (11.4-16.0) gm/dL Hct 25.1 L 25.8 L (34.0-46.0) % Sodium (137-145) mmol/L Glucose (74-99) mg/dL Calcium (8.4-10.2) mg/dL Phosphorus (2.5-4.5) mg/dL Troponin I 0.225 H* (0.000-0.034) ng/mL 09/24/18 09/24/18 09/24/18 Range/Units 00:56 04:53 04:53 RBC 2.58 L (3.80-5.40) m/uL Hgb 8.3 L (11.4-16.0) gm/dL Hct 23.9 L (34.0-46.0) % Sodium 134 L (137-145) mmol/L Glucose 111 H (74-99) mg/dL Calcium 7.9 L (8.4-10.2) mg/dL Phosphorus 1.9 L (2.5-4.5) mg/dL Troponin I 0.167 H* (0.000-0.034) ng/mL Microbiology - Last 24 Hours (Table) 09/23/18 00:58 Blood Culture - Preliminary Blood No Growth after 24 hours Assessment and Plan (1) Periprosthetic fracture around internal prosthetic right hip joint Current Visit: Yes Status: Acute Code(s): M97.01XA - PERIPROSTH FRACTURE AROUND INTERNAL PROSTH R HIP JT, INIT SNOMED Code(s): 346618549 (2) S/P total hip arthroplasty Current Visit: Yes Status: Acute Code(s): Z96.649 - PRESENCE OF UNSPECIFIED ARTIFICIAL HIP JOINT SNOMED Code(s): 303906680475 (3) Status post open reduction with internal fixation of fracture Current Visit: Yes Status: Acute Code(s): Z96.7 - PRESENCE OF OTHER BONE AND TENDON IMPLANTS; Z87.81 - PERSONAL HISTORY OF (HEALED) TRAUMATIC FRACTURE SNOMED Code(s): 215187254 Plan: The clinical and x-ray findings are discussed the patient. She is nonweightbearing to the right lower extremity with walker. We will continue to follow orthopedically.
--- NOTE | 2018-09-24 13:13 | P.PN ---
Subjective Progress Note Date: 09/24/18 Principal diagnosis: Right hip fracture, atrial fibrillation with RVR and a flutter Patient was seen and examined. No acute events overnight. Patient reports well -controlled right hip pain, only when standing still. She reports excruciating pain when moving. Patient reports feeling discouraged due to the fact that she cannot do anything for herself at this time. She also feels slightly anxious as well. She denies any chest pain, shortness of breath or palpitations. No nausea or vomiting. No fever or chills. Patient converted this morning from atrial fibrillation with RVR and a flutter to sinus rhythm. Objective - Vital Signs Vital signs: Vital Signs Temp 98.9 F 09/24/18 08:00 Pulse 142 H 09/24/18 10:00 Resp 12 09/24/18 10:00 BP 98/57 09/24/18 10:00 Pulse Ox 90 L 09/24/18 10:00 Intake & Output 09/23/18 09/24/18 09/24/18 18:59 06:59 18:59 Intake Total 2463.532 1053.671 510 Output Total 495 580 235 Balance 1968.532 473.671 275 Weight 144.1 kg Intake: IV 880 786 510 Magnesium Sulfate-D5w Pmx 100 1 gm In Dextrose/Water 1 100ml.bag @ 100 mls/hr IVPB Q1H [facility] Rx#: [id number] PRBC 6 Sodium Chloride 0.9% 1, 780 780 260 000 ml @ 65 mls/hr IV . [id number] [facility] Rx#:[id number] Sodium Glycerophosphate 250 20 mmol In Sodium Chloride 0.9% 250 ml @ 31 .25 mls/hr IV ONCE ONE Rx #:[id number] Intake, IV Titration 210.532 267.671 Amount Amiodarone 450 mg In 210.532 267.671 Dextrose 5% in Water 250 ml @ 1 MG/MIN 33.33 mls/ hr IV .Q7H31M [facility] Rx#: [id number] Oral 1373 Output: Urine 495 580 235 Other: Voiding Method Indwelling Catheter Indwelling Catheter Indwelling Catheter - Exam General: [non toxic], [no distress], [appears at stated age] Derm: [warm], [dry] Head: [atraumatic], [normocephalic], [symmetric] Eyes: [EOMI], [no lid lag], [anicteric sclera] Mouth: [no lip lesion], [mucus membranes moist] Cardiovascular: [S1S2 reg], [sinus rhythm, heart rate in the 70s, no murmurs, positive DP pulse bilateral] Lungs: [CTA bilateral], [no rhonchi, no rales] , [no accessory muscle use] Abdominal: [soft], [ nontender to palpation], [no guarding], [no appreciable organomegaly] Ext: [no gross muscle atrophy], [no edema], [no contractures], [R hip surgical dressing clean dry and intact] Neuro: [no focal neuro deficits] Psych: [Alert], [oriented], [appropriate affect] - Labs CBC & Chem 7: 09/24/18 04:53 09/24/18 04:53 Labs: Abnormal Lab Results - Last 24 Hours (Table) 09/23/18 09/23/18 09/24/18 Range/Units 16:45 16:45 00:56 RBC 2.77 L (3.80-5.40) m/uL Hgb 8.7 L (11.4-16.0) gm/dL Hct 25.8 L (34.0-46.0) % Sodium (137-145) mmol/L Glucose (74-99) mg/dL Calcium (8.4-10.2) mg/dL Phosphorus (2.5-4.5) mg/dL Troponin I 0.225 H* 0.167 H* (0.000-0.034) ng/mL 09/24/18 09/24/18 Range/Units 04:53 04:53 RBC 2.58 L (3.80-5.40) m/uL Hgb 8.3 L (11.4-16.0) gm/dL Hct 23.9 L (34.0-46.0) % Sodium 134 L (137-145) mmol/L Glucose 111 H (74-99) mg/dL Calcium 7.9 L (8.4-10.2) mg/dL Phosphorus 1.9 L (2.5-4.5) mg/dL Troponin I (0.000-0.034) ng/mL Microbiology - Last 24 Hours (Table) 09/23/18 00:58 Blood Culture - Preliminary Blood No Growth after 24 hours Assessment and Plan Assessment: Assessment and Plan 1. Right femoral head fracture 2. Atrial fibrillation with RVR 3. Anemia secondary to acute blood loss from surgery 4. Elevated troponins 5. Degenerative joint disease of the right hip status post total right hip arthroplasty POD 3 6. Hypothyroidism 1. Discovered on x-ray. Complication of surgery. Mchenry and Dilaudid as needed for pain control. Meloxicam daily. POD 4. Weightbearing as per orthopedic recommendations. Continue Xarelto 15 mg PO QD, possibly increase to BID dosing for AC due to A-Fibrillation. Will follow orthopedic, PT and OT recommendations. 2. SVT initially broken with adenosine, converted to A-Fib with RVR and A- Flutter. Converted to sinus rhythm on 09/24 with Amiodarone and Metoprolol. Cardiology consulted, will follow recommendations. Telemetry monitoring. Echocardiogram shows EF 50-55% with moderate LVH. TSH is within normal limits. Keep K >4 and MG greater than 2. Continue amiodarone 400 mg by mouth twice a day, metoprolol 25 mg by mouth twice a day. Will follow cardiology recommendations. 3. Hg from 7.0 to 8.3 s/p 2 unit PRBC. Largely due to acute blood loss from surgery, surgical site appears clean with no hematoma. Telemetry monitoring. Transfuse if Hg < 7.0. 4. Likely demand ischemia from A-Fib with RVR and acute blood loss. Trop 0.038 , 0.225, 0.167 with EKG showing A-Fib with RVR. Acute coronary syndrome ruled out. Will follow Cardiology recommendations. 5. Management as above. POD5. 6. Continue Synthroid 50 g by mouth daily. Patient converted to sinus rhythm, currently on amiodarone and metoprolol by mouth. We will follow Cardiology recommendations. She has been transfused 2 units of PRBC. Trend H&H.
[2018-09-24] MEDS: METOPROLOL TARTRATE 25 MG TAB PO SCH ×2 (15:11→20:44)
--- NOTE | 2018-09-24 16:13 | P.PN ---
Subjective Progress Note Date: 09/24/18 Principal diagnosis: Paroxysmal atrial fibrillation This is a pleasant 68-year-old female patient with a past medical history significant for history of breast cancer as well as thyroid disorder who was admitted to the hospital and underwent right hip surgery. Subsequently the patient did have a prosthetic fracture. She was taken again to the OR where she underwent another hip surgery. We get involved in her care because during her hospitalization and after the second surgery the patient felt palpitation in the chest associated with sweating. No chest pain or chest discomfort. An EKG was performed and revealed atrial fibrillation with RVR which is new to the patient. The patient is not aware of any prior history of coronary artery disease or congestive heart failure or any cardiac arrhythmia and she never seen any handkerchief maker in the past. She underwent an echocardiogram which revealed normal LV function with mild MR, mild TR, and normal pulmonary artery systolic pressure. On follow-up with the patient today, 09/30/2018, she was converted to normal sinus mechanism earlier. She continues to be on metoprolol which was increased yesterday as well as amiodarone by mouth. I also did increase the dose of Xarelto to 15 mg by mouth daily. I did recommend continue the current dose of metoprolol and hold it only for systolic blood pressure below 90 mmHg. Objective - Vital Signs Vital signs: Vital Signs Temp 98.9 F 09/24/18 08:00 Pulse 142 H 09/24/18 10:00 Resp 12 09/24/18 10:00 BP 98/57 09/24/18 10:00 Pulse Ox 90 L 09/24/18 10:00 Intake & Output 09/23/18 09/24/18 09/24/18 18:59 06:59 18:59 Intake Total 2463.532 1053.671 510 Output Total 495 580 235 Balance 1968.532 473.671 275 Weight 144.1 kg Intake: IV 880 786 510 Magnesium Sulfate-D5w Pmx 100 1 gm In Dextrose/Water 1 100ml.bag @ 100 mls/hr IVPB Q1H [facility] Rx#: [id number] PRBC 6 Sodium Chloride 0.9% 1, 780 780 260 000 ml @ 65 mls/hr IV . [id number] [facility] Rx#:[id number] Sodium Glycerophosphate 250 20 mmol In Sodium Chloride 0.9% 250 ml @ 31 .25 mls/hr IV ONCE ONE Rx #:[id number] Intake, IV Titration 210.532 267.671 Amount Amiodarone 450 mg In 210.532 267.671 Dextrose 5% in Water 250 ml @ 1 MG/MIN 33.33 mls/ hr IV .Q7H31M [facility] Rx#: [id number] Oral 1373 Output: Urine 495 580 235 Other: Voiding Method Indwelling Catheter Indwelling Catheter Indwelling Catheter - Constitutional General appearance: Present: no acute distress - Respiratory Respiratory: bilateral: CTA - Cardiovascular Rhythm: regular Heart sounds: normal: S1, S2 - Labs CBC & Chem 7: 09/24/18 04:53 09/24/18 04:53 Labs: Abnormal Lab Results - Last 24 Hours (Table) 09/23/18 09/23/18 09/24/18 Range/Units 16:45 16:45 00:56 RBC 2.77 L (3.80-5.40) m/uL Hgb 8.7 L (11.4-16.0) gm/dL Hct 25.8 L (34.0-46.0) % Sodium (137-145) mmol/L Glucose (74-99) mg/dL Calcium (8.4-10.2) mg/dL Phosphorus (2.5-4.5) mg/dL Troponin I 0.225 H* 0.167 H* (0.000-0.034) ng/mL 09/24/18 09/24/18 Range/Units 04:53 04:53 RBC 2.58 L (3.80-5.40) m/uL Hgb 8.3 L (11.4-16.0) gm/dL Hct 23.9 L (34.0-46.0) % Sodium 134 L (137-145) mmol/L Glucose 111 H (74-99) mg/dL Calcium 7.9 L (8.4-10.2) mg/dL Phosphorus 1.9 L (2.5-4.5) mg/dL Troponin I (0.000-0.034) ng/mL Microbiology - Last 24 Hours (Table) 09/23/18 00:58 Blood Culture - Preliminary Blood No Growth after 24 hours Assessment and Plan Assessment: Assessment #1 status post right hip surgery #2 atrial fibrillation with rapid ventricular response. This is a new to the patient #3 thyroid disorder Plan #1 continue the current dose of metoprolol by mouth and amiodarone by mouth #2 continue the current dose of oral anticoagulation #3 the echocardiogram was reviewed and described above #4 follow-up with the patient
[2018-09-24 21:25] LABS: HCT 24.6 % (34.0-46.0); HGB 8.1 gm/dL (11.4-16.0); MCH 31.7 pg (25.0-35.0); MCHC 32.8 g/dL (31.0-37.0); MCV 96.6 fL (80.0-100.0); Mean Platelet Volume 6.2; Platelet Count 301 k/uL (150-450); RBC 2.55 m/uL (3.80-5.40); RDW 13.6 % (11.5-15.5); WBC 7.8 k/uL (3.8-10.6)
[2018-09-24] MEDS: SENNOSIDES-DOCUSATE SODIUM 1 EACH TAB PO SCH (22:34)
[2018-09-25] MEDS: HYDROcodone/APAP 7.5-325MG 1 EACH TAB PO PRN ×4 (02:17→21:42)
[2018-09-25 05:19] LABS: Anion Gap 4 mmol/L; Blood Urea Nitrogen 15 mg/dL (7-17); Calcium 7.7 mg/dL (8.4-10.2); Carbon Dioxide 23 mmol/L (22-30); Chloride 106 mmol/L (98-107); Glucose 118 mg/dL (74-99); Magnesium 2.1 mg/dL (1.6-2.3); Potassium 3.8 mmol/L (3.5-5.1); Sodium 133 mmol/L (137-145)
[2018-09-25] MEDS: LEVOTHYROXINE 50 MCG TAB PO SCH (07:02)
[2018-09-25] MEDS ORDERED: Potassium Replacement Protocol 1 EACH MISC MISCELLANE PRN (07:24)
[2018-09-25 07:38] LABS: Basophils % (A) 0 %; Eosinophils # (A) 0.1 k/uL (0-0.7); Eosinophils % (A) 1 %; HCT 23.5 % (34.0-46.0); HGB 7.7 gm/dL (11.4-16.0); Lymphocytes % (A) 16 %; MCH 31.6 pg (25.0-35.0); MCHC 32.6 g/dL (31.0-37.0); MCV 96.8 fL (80.0-100.0); Mean Platelet Volume 6.8; Monocytes # (A) 0.3 k/uL (0-1.0); Monocytes % (A) 5 %; Neutrophils % (A) 77 %; Platelet Count 295 k/uL (150-450); RBC 2.43 m/uL (3.80-5.40); RDW 13.8 % (11.5-15.5); WBC 6.5 k/uL (3.8-10.6)
[2018-09-25] MEDS ORDERED: POTASSIUM CHLORIDE ER 20 MEQ TAB.ER PO SCH (08:00)
--- NOTE | 2018-09-25 08:18 | P.PN ---
Subjective Progress Note Date: 09/25/18 Principal diagnosis: Paroxysmal atrial fibrillation This is a pleasant 68-year-old female patient with a past medical history significant for history of breast cancer as well as thyroid disorder who was admitted to the hospital and underwent right hip surgery. Subsequently the patient did have a prosthetic fracture. She was taken again to the OR where she underwent another hip surgery. We get involved in her care because during her hospitalization and after the second surgery the patient felt palpitation in the chest associated with sweating. No chest pain or chest discomfort. An EKG was performed and revealed atrial fibrillation with RVR which is new to the patient. The patient is not aware of any prior history of coronary artery disease or congestive heart failure or any cardiac arrhythmia and she never seen any screen room operator in the past. She underwent an echocardiogram which revealed normal LV function with mild MR, mild TR, and normal pulmonary artery systolic pressure. On follow-up with the patient today, September 252018, she is doing good. She was converted yesterday to normal sinus mechanism and she has been maintaining normal sinus mechanism on metoprolol as well as amiodarone by mouth. Also she is orally anticoagulated. The blood pressure has been marginally low but her systolic blood pressure is above 90 mmHg and she is asymptomatic. From the cardiovascular standpoint overview, the patient can be transferred out of the ICU. Objective - Vital Signs Vital signs: Vital Signs Temp 98.6 F 09/25/18 04:00 Pulse 64 09/25/18 07:00 Resp 11 L 09/25/18 07:00 BP 100/66 09/25/18 07:00 Pulse Ox 92 L 09/25/18 07:00 Intake & Output 09/24/18 09/25/18 09/25/18 18:59 06:59 18:59 Intake Total 1567 1280 65 Output Total 615 415 75 Balance 952 865 -10 Weight 145.5 kg Intake: IV 1030 780 65 Sodium Chloride 0.9% 1, 780 780 65 000 ml @ 65 mls/hr IV . [id number] [facility] Rx#:[id number] Sodium Glycerophosphate 250 20 mmol In Sodium Chloride 0.9% 250 ml @ 31 .25 mls/hr IV ONCE ONE Rx #:[id number] Oral 537 500 Output: Urine 615 415 75 Other: Voiding Method Indwelling Catheter Indwelling Catheter - Constitutional General appearance: Present: no acute distress - Respiratory Respiratory: bilateral: CTA - Cardiovascular Rhythm: regular Heart sounds: normal: S1, S2 - Labs CBC & Chem 7: 09/25/18 04:53 09/25/18 04:53 Labs: Abnormal Lab Results - Last 24 Hours (Table) 09/24/18 09/25/18 09/25/18 Range/Units 21:12 04:53 04:53 RBC 2.55 L 2.43 L (3.80-5.40) m/uL Hgb 8.1 L 7.7 L (11.4-16.0) gm/dL Hct 24.6 L 23.5 L (34.0-46.0) % Sodium 133 L (137-145) mmol/L Glucose 118 H (74-99) mg/dL Calcium 7.7 L (8.4-10.2) mg/dL Microbiology - Last 24 Hours (Table) 09/23/18 00:58 Blood Culture - Preliminary Blood No Growth after 48 hours Assessment and Plan Assessment: Assessment #1 status post right hip surgery #2 atrial fibrillation with rapid ventricular response. This is a new to the patient #3 thyroid disorder Plan #1 continue the current dose of metoprolol by mouth and amiodarone by mouth #2 continue the current dose of oral anticoagulation #3 the echocardiogram was reviewed and described above #4 follow-up with the patient
[2018-09-25] MEDS: AMIODARONE 200 MG TAB PO SCH ×2 (08:38→21:44)
[2018-09-25] MEDS: METOPROLOL TARTRATE 25 MG TAB PO SCH ×2 (08:40→21:44)
[2018-09-25] MEDS: RIVAROXABAN 15 MG TAB PO SCH ×2 (08:40→10:04)
--- NOTE | 2018-09-25 08:57 | P.PN ---
Subjective Progress Note Date: 09/25/18 This is a 68-year-old female who is status post ORIF of periprosthetic fracture right total hip arthroplasty and revision of femoral component. This is postoperative day #4. Patient is seen and evaluated at bedside in the ICU where the patient was transferred over the weekend due to atrial fibrillation with RVR. Patient is currently in normal sinus rhythm. Patient rates her pain in the right leg a 7-810, but states that the pain medication is helping. Patient also complains of pain in the back of her right calf. Patient denies any fever/chills, numbness, weakness, tingling, abdominal pain, shortness of breath or chest pain. Objective - Vital Signs Vital signs: Vital Signs Temp 98.6 F 09/25/18 04:00 Pulse 64 09/25/18 07:00 Resp 11 L 09/25/18 07:00 BP 100/66 09/25/18 07:00 Pulse Ox 92 L 09/25/18 07:00 Intake & Output 09/24/18 09/25/18 09/25/18 18:59 06:59 18:59 Intake Total 1567 1280 65 Output Total 615 415 75 Balance 952 865 -10 Weight 145.5 kg Intake: IV 1030 780 65 Sodium Chloride 0.9% 1, 780 780 65 000 ml @ 65 mls/hr IV . [id number] [facility] Rx#:[id number] Sodium Glycerophosphate 250 20 mmol In Sodium Chloride 0.9% 250 ml @ 31 .25 mls/hr IV ONCE ONE Rx #:[id number] Oral 537 500 Output: Urine 615 415 75 Other: Voiding Method Indwelling Catheter Indwelling Catheter - Exam Vital signs are stable. Patient is in no acute distress and is alert and oriented 3. Calf is soft and tender to palpation. Negative homans sign. Dressing is clean, dry, and intact. Patient has full foot and ankle motion without pain or difficulty. Neurovascular status and circulatory status are intact. - Labs CBC & Chem 7: 09/25/18 04:53 09/25/18 04:53 Labs: Abnormal Lab Results - Last 24 Hours (Table) 09/24/18 09/25/18 09/25/18 Range/Units 21:12 04:53 04:53 RBC 2.55 L 2.43 L (3.80-5.40) m/uL Hgb 8.1 L 7.7 L (11.4-16.0) gm/dL Hct 24.6 L 23.5 L (34.0-46.0) % Sodium 133 L (137-145) mmol/L Glucose 118 H (74-99) mg/dL Calcium 7.7 L (8.4-10.2) mg/dL Microbiology - Last 24 Hours (Table) 09/23/18 00:58 Blood Culture - Preliminary Blood No Growth after 48 hours Assessment and Plan Assessment: Status post ORIF perprosthetic fracture right total hip arthroplasty and revision of femoral component. (1) S/P total hip arthroplasty Current Visit: Yes Status: Acute Code(s): Z96.649 - PRESENCE OF UNSPECIFIED ARTIFICIAL HIP JOINT SNOMED Code(s): 396861497104 (2) Primary osteoarthritis of right hip Current Visit: Yes Status: Acute Code(s): M16.11 - UNILATERAL PRIMARY OSTEOARTHRITIS, RIGHT HIP SNOMED Code(s): 594927801 (3) Periprosthetic fracture around internal prosthetic right hip joint Current Visit: Yes Status: Acute Code(s): M97.01XA - PERIPROSTH FRACTURE AROUND INTERNAL PROSTH R HIP JT, INIT SNOMED Code(s): 277463824 (4) Status post open reduction with internal fixation of fracture Current Visit: Yes Status: Acute Code(s): Z96.7 - PRESENCE OF OTHER BONE AND TENDON IMPLANTS; Z87.81 - PERSONAL HISTORY OF (HEALED) TRAUMATIC FRACTURE SNOMED Code(s): 190564997 Plan: Continue routine postop care and pain control. Strictly nonweightbearing to the right lower extremity. Continue Xarelto for DVT prophylaxis. Venous Doppler ultrasound of the extremity is ordered. Daily dressing changes. Virgie to be removed in 10-14 days. Appreciate input from medicine. Hemoglobin today is 7.7. Anticipate discharge to ECF when medically stable.
[2018-09-25 10:14] VITALS: BMI 51.7
--- NOTE | 2018-09-25 10:42 | US ---
EXAMINATION TYPE: US venous doppler duplex LE RT DATE OF EXAM: 09/25/2018 10:25 AM COMPARISON: NONE CLINICAL HISTORY: pain. Right hip replacement 1 week ago, right calf pain since surgery SIDE PERFORMED: Right TECHNIQUE: The lower extremity deep venous system is examined utilizing real time linear array sonog corina with graded compression, doppler sonography and color-flow sonography. VESSELS IMAGED: External Iliac Vein (EIV) Common Femoral Vein Deep Femoral Vein Greater Saphenous Vein * Femoral Vein Popliteal Vein Small Saphenous Vein * Proximal Calf Veins (* superficial vessels) Difficult and limited study due to morbidly obese patient Right Leg: Visualized portions appear negative for DVT IMPRESSION: No evidence for DVT at this time.
[2018-09-25] MEDS: SODIUM CHLORIDE 0.9% 1,000 ML IV SCH (11:00)
--- NOTE | 2018-09-25 11:36 | P.PN ---
Subjective Progress Note Date: 09/25/18 Principal diagnosis: New-onset atrial fibrillation with RVR, status post open reduction and internal fixation of right hip. Patient was reevaluated today on 09/25/2018, she is presently in sinus rhythm. Her atrial fibrillation seems to be much better controlled, remains on amiodarone as per cardiology. Her blood pressure is stable, patient denies any specific complaints. She is on antiarrhythmic therapy she is also on anticoagulation therapy. Denies any shortness of breath, no cough, no wheezing , no chest pain. And she denies any palpitations. She is presently on multiple meds as noted and reviewed. Hence I have recommended that we can transfer the patient out of the ICU to [facility]. Labs were reviewed, hemoglobin is 7.7, electrolytes are normal renal profile is normal. Objective - Vital Signs Vital signs: Vital Signs Temp 98.6 F 09/25/18 04:00 Pulse 64 09/25/18 07:00 Resp 11 L 09/25/18 07:00 BP 100/66 09/25/18 07:00 Pulse Ox 92 L 09/25/18 07:00 Intake & Output 09/24/18 09/25/18 09/25/18 18:59 06:59 18:59 Intake Total 1567 1280 65 Output Total 615 415 75 Balance 952 865 -10 Weight 145.5 kg 145.5 kg Intake: IV 1030 780 65 Sodium Chloride 0.9% 1, 780 780 65 000 ml @ 65 mls/hr IV . [id number] [facility] Rx#:[id number] Sodium Glycerophosphate 250 20 mmol In Sodium Chloride 0.9% 250 ml @ 31 .25 mls/hr IV ONCE ONE Rx #:[id number] Oral 537 500 Output: Urine 615 415 75 Other: Voiding Method Indwelling Catheter Indwelling Catheter Indwelling Catheter - Exam Physical Exam: Revealed a 68-year-old female in no distress. Head: Atraumatic normocephalic. HEENT:[Neck is supple.] [No neck masses.] [No thyromegaly.] [No JVD.] Chest: [Clear throughout, no crackles, no rhonchi, no wheezes.] Cardiac Exam: [Normal S1 and S2, no S3 gallop, no murmur.] Abdomen: [Soft, nontender, no megaly, no rebound, no guarding, normal bowel sounds.] Extremities: [No clubbing, no edema, no cyanosis. Right lower extremity dressing is clean, dry and intact.] Neurological Exam: [No focal neurologic deficit.] Psychiatric: Normal mood, affect and mental status examination. Lymphatics: No lymphadenopathy. Skin: No rashes. - Labs CBC & Chem 7: 09/25/18 04:53 09/25/18 04:53 Labs: Abnormal Lab Results - Last 24 Hours (Table) 09/24/18 09/25/18 09/25/18 Range/Units 21:12 04:53 04:53 RBC 2.55 L 2.43 L (3.80-5.40) m/uL Hgb 8.1 L 7.7 L (11.4-16.0) gm/dL Hct 24.6 L 23.5 L (34.0-46.0) % Sodium 133 L (137-145) mmol/L Glucose 118 H (74-99) mg/dL Calcium 7.7 L (8.4-10.2) mg/dL Microbiology - Last 24 Hours (Table) 09/23/18 00:58 Blood Culture - Preliminary Blood No Growth after 48 hours Assessment and Plan Assessment: Impression: 1 new onset atrial fibrillation with RVR, presently controlled and she is in sinus rhythm. 2 status post open reduction and internal fixation of right hip fracture. 3 history of breast cancer 4 history of hypothyroidism 5 osteoarthritis 6 history of palpitations clinically based on her symptoms, patient may have had previous episodes of paroxysmal atrial fibrillation, but was not previously diagnosed. Recommendation: Patient is doing better from the pulmonary perspective, denies any shortness of breath, no palpitations, her rhythm seems to be well-controlled , she is in sinus rhythm at present, she is on proper medications including anticoagulation therapy, she is also on amiodarone orally, she is back on her usual meds for hypothyroidism, and for hypertension. She is on metoprolol 25 mg twice a day. And her pain seems to well-controlled for her recent surgery. Hence patient could be transferred out of the ICU to a monitor bed on [facility] today, or could even be sent to a regular medical floor with remote telemetry. We will continue to follow. Time with Patient: Less than 30
[2018-09-25] MEDS: HYDROmorphone 2 MG/ML 1 ML SYRINGE IVP PRN (11:48)
--- NOTE | 2018-09-25 12:45 | P.PN ---
Subjective Progress Note Date: 09/25/18 Principal diagnosis: Atrial fibrillation Patient was seen and examined. No acute events overnight. Patient reports right hip pain, controlled with by mouth medications. Pain is worsened with ambulation. Patient reports mild nausea but no vomiting. Small bowel movement today. She denies any chest pain, shortness of breath or palpitations. She has been maintaining on sinus rhythm. Objective - Vital Signs Vital signs: Vital Signs Temp 98.6 F 09/25/18 04:00 Pulse 64 09/25/18 07:00 Resp 11 L 09/25/18 07:00 BP 100/66 09/25/18 07:00 Pulse Ox 92 L 09/25/18 07:00 Intake & Output 09/24/18 09/25/18 09/25/18 18:59 06:59 18:59 Intake Total 1567 1280 65 Output Total 615 415 75 Balance 952 865 -10 Weight 145.5 kg 145.5 kg Intake: IV 1030 780 65 Sodium Chloride 0.9% 1, 780 780 65 000 ml @ 65 mls/hr IV . [id number] [facility] Rx#:[id number] Sodium Glycerophosphate 250 20 mmol In Sodium Chloride 0.9% 250 ml @ 31 .25 mls/hr IV ONCE ONE Rx #:[id number] Oral 537 500 Output: Urine 615 415 75 Other: Voiding Method Indwelling Catheter Indwelling Catheter Indwelling Catheter - Exam General: [non toxic], [no distress], [appears at stated age] Derm: [warm], [dry] Head: [atraumatic], [normocephalic], [symmetric] Eyes: [EOMI], [no lid lag], [anicteric sclera] Mouth: [no lip lesion], [mucus membranes moist] Cardiovascular: [S1S2 reg], [sinus rhythm, heart rate in the 70s, no murmurs, positive DP pulse bilateral] Lungs: [CTA bilateral], [no rhonchi, no rales] , [no accessory muscle use] Abdominal: [soft], [ nontender to palpation], [no guarding], [no appreciable organomegaly] Ext: [no gross muscle atrophy], [no edema], [no contractures], [R hip surgical dressing clean dry and intact], [bilateral calf tenderness, Homans negative bilaterally] Neuro: [no focal neuro deficits] Psych: [Alert], [oriented], [appropriate affect] - Labs CBC & Chem 7: 09/25/18 04:53 09/25/18 04:53 Labs: Abnormal Lab Results - Last 24 Hours (Table) 09/24/18 09/25/18 09/25/18 Range/Units 21:12 04:53 04:53 RBC 2.55 L 2.43 L (3.80-5.40) m/uL Hgb 8.1 L 7.7 L (11.4-16.0) gm/dL Hct 24.6 L 23.5 L (34.0-46.0) % Sodium 133 L (137-145) mmol/L Glucose 118 H (74-99) mg/dL Calcium 7.7 L (8.4-10.2) mg/dL Microbiology - Last 24 Hours (Table) 09/23/18 00:58 Blood Culture - Preliminary Blood No Growth after 48 hours Assessment and Plan Assessment: Assessment and Plan 1. Atrial fibrillation with RVR 2. Right femoral head fracture 3. Bilateral calf tenderness 4. Anemia secondary to acute blood loss from surgery 5. Elevated troponins 6. Degenerative joint disease of the right hip status post total right hip arthroplasty POD 3 7. Hypothyroidism 1. SVT initially broken with adenosine, converted to A-Fib with RVR and A- Flutter. Converted to sinus rhythm on 09/24 with Amiodarone and Metoprolol. Telemetry monitoring. Echocardiogram shows EF 50-55% with moderate LVH. TSH is within normal limits. Keep K >4 and MG greater than 2. Continue amiodarone 400 mg by mouth twice a day, metoprolol 25 mg by mouth twice a day. Will follow cardiology recommendations. 2. Discovered on x-ray. Complication of surgery. [place] and Dilaudid as needed for pain control. Meloxicam daily. POD 5. Weightbearing as per orthopedic recommendations. Continue Xarelto 15 mg PO QD, possibly increase to BID dosing for AC due to A-Fibrillation. Will follow orthopedic, PT and OT recommendations. 3. Pain control as above. Follow Duplex 4. Hg from 7.0 to 8.3 (to 8.1 and 7.7) s/p 2 unit PRBC. Largely due to acute blood loss from surgery, surgical site appears clean with no hematoma. Telemetry monitoring. Transfuse if Hg < 7.0. 5. Likely demand ischemia from A-Fib with RVR and acute blood loss. Trop 0.038 , 0.225, 0.167 with EKG showing A-Fib with RVR. Acute coronary syndrome ruled out. Will follow Cardiology recommendations. 6. Management as above. POD 6. 7. Continue Synthroid 50 g by mouth daily. Patient converted to sinus rhythm, currently on amiodarone and metoprolol by mouth, recommend transfer out of ICU. We will follow Cardiology recommendations. She has been transfused 2 units of PRBC, Trend H&H. Will follow orthopedic recommendations.
[2018-09-25] MEDS ORDERED: HYDROmorphone 2 MG/ML 1 ML SYRINGE IVP PRN (15:43)
[2018-09-25] MEDS ORDERED: HYDROmorphone 1 MG/ML 1 ML SYRINGE IVP PRN (15:44)
[2018-09-25] MEDS: HYDROmorphone 0.5 MG/0.5 ML SYRINGE IVP PRN (16:20)
[2018-09-25] MEDS: SENNOSIDES-DOCUSATE SODIUM 1 EACH TAB PO SCH (21:44)
[2018-09-26 05:18] LABS: Basophils % (A) 0 %; Eosinophils # (A) 0.1 k/uL (0-0.7); Eosinophils % (A) 2 %; HCT 23.8 % (34.0-46.0); HGB 7.5 gm/dL (11.4-16.0); Hypochromasia Moderate; Lymphocytes # (A) 1.1 k/uL (1.0-4.8); Lymphocytes % (A) 17 %; MCH 31.2 pg (25.0-35.0); MCHC 31.3 g/dL (31.0-37.0); MCV 99.6 fL (80.0-100.0); Mean Platelet Volume 6.2; Monocytes # (A) 0.4 k/uL (0-1.0); Monocytes % (A) 6 %; Neutrophils # (A) 4.6 k/uL (1.3-7.7); Neutrophils % (A) 72 %; Platelet Count 296 k/uL (150-450); RBC 2.39 m/uL (3.80-5.40); RDW 13.8 % (11.5-15.5); WBC 6.4 k/uL (3.8-10.6)
[2018-09-26 05:31] LABS: Anion Gap 3 mmol/L; Blood Urea Nitrogen 14 mg/dL (7-17); Calcium 7.8 mg/dL (8.4-10.2); Carbon Dioxide 23 mmol/L (22-30); Chloride 107 mmol/L (98-107); Glucose 95 mg/dL (74-99); Magnesium 2.1 mg/dL (1.6-2.3); Potassium 4.3 mmol/L (3.5-5.1); Sodium 133 mmol/L (137-145)
[2018-09-26] MEDS: LEVOTHYROXINE 50 MCG TAB PO SCH (07:09)
[2018-09-26] MEDS: HYDROcodone/APAP 7.5-325MG 1 EACH TAB PO PRN ×3 (07:11→22:13)
[2018-09-26] MEDS: SODIUM CHLORIDE 0.9% 1,000 ML IV SCH ×2 (07:13→20:23)
[2018-09-26] MEDS: METOPROLOL TARTRATE 25 MG TAB PO SCH ×2 (08:15→20:16)
[2018-09-26] MEDS: AMIODARONE 200 MG TAB PO SCH ×2 (08:15→20:16)
[2018-09-26] MEDS: RIVAROXABAN 15 MG TAB PO SCH (08:15)
--- NOTE | 2018-09-26 08:54 | P.PN ---
Subjective Progress Note Date: 09/26/18 Principal diagnosis: Paroxysmal atrial fibrillation This is a pleasant 68-year-old female patient with a past medical history significant for history of breast cancer as well as thyroid disorder who was admitted to the hospital and underwent right hip surgery. Subsequently the patient did have a prosthetic fracture. She was taken again to the OR where she underwent another hip surgery. We get involved in her care because during her hospitalization and after the second surgery the patient felt palpitation in the chest associated with sweating. No chest pain or chest discomfort. An EKG was performed and revealed atrial fibrillation with RVR which is new to the patient. The patient is not aware of any prior history of coronary artery disease or congestive heart failure or any cardiac arrhythmia and she never seen any learning operations specialist in the past. She underwent an echocardiogram which revealed normal LV function with mild MR, mild TR, and normal pulmonary artery systolic pressure. On follow-up with the patient today, September 262018, she remains in normal sinus mechanism. She is asymptomatic. The right leg is swollen but she underwent a venous duplex study and that showed no evidence of DVT. She continues to be on oral anticoagulation. She is also on metoprolol as well as amiodarone by mouth. Objective - Vital Signs Vital signs: Vital Signs Temp 99.2 F 09/26/18 08:00 Pulse 71 09/26/18 08:00 Resp 12 09/26/18 08:00 BP 128/69 09/26/18 08:00 Pulse Ox 95 09/26/18 08:00 Intake & Output 09/25/18 09/26/18 09/26/18 18:59 06:59 18:59 Intake Total 2152 1180 65 Output Total 435 690 100 Balance 1717 490 -35 Weight 145.5 kg 145.6 kg Intake: IV 780 780 65 Sodium Chloride 0.9% 1, 780 780 65 000 ml @ 65 mls/hr IV . [id number] [facility] Rx#:[id number] Oral 1372 400 Output: Urine 435 690 100 Other: Voiding Method Indwelling Catheter Indwelling Catheter - Constitutional General appearance: Present: no acute distress - Respiratory Respiratory: bilateral: CTA - Cardiovascular Rhythm: regular Heart sounds: normal: S1, S2 - Labs CBC & Chem 7: 09/26/18 05:00 09/26/18 05:00 Labs: Abnormal Lab Results - Last 24 Hours (Table) 09/26/18 09/26/18 Range/Units 05:00 05:00 RBC 2.39 L (3.80-5.40) m/uL Hgb 7.5 L (11.4-16.0) gm/dL Hct 23.8 L (34.0-46.0) % Sodium 133 L (137-145) mmol/L Calcium 7.8 L (8.4-10.2) mg/dL Microbiology - Last 24 Hours (Table) 09/23/18 00:58 Blood Culture - Preliminary Blood No Growth after 72 hours Assessment and Plan Assessment: Assessment #1 status post right hip surgery #2 atrial fibrillation with rapid ventricular response. This is a new to the patient #3 thyroid disorder Plan #1 continue the current dose of metoprolol by mouth and amiodarone by mouth #2 continue the current dose of oral anticoagulation #3 the echocardiogram was reviewed and described above #4 follow-up with the patient
--- NOTE | 2018-09-26 11:28 | P.PN ---
Subjective Progress Note Date: 09/26/18 Principal diagnosis: New-onset atrial fibrillation with RVR, status post open reduction and internal fixation of right hip. Patient was reevaluated today on 09/25/2018, she is presently in sinus rhythm. Her atrial fibrillation seems to be much better controlled, remains on amiodarone as per cardiology. Her blood pressure is stable, patient denies any specific complaints. She is on antiarrhythmic therapy she is also on anticoagulation therapy. Denies any shortness of breath, no cough, no wheezing , no chest pain. And she denies any palpitations. She is presently on multiple meds as noted and reviewed. Hence I have recommended that we can transfer the patient out of the ICU to [facility]. Labs were reviewed, hemoglobin is 7.7, electrolytes are normal renal profile is normal. Patient was reevaluated today on 09/26/2018, remains in sinus rhythm, asymptomatic, her venous Doppler was negative for DVT, chest x-ray was reassuring. Hence I felt the patient could be transferred out of the ICU, and she could even be considered for discharge planning if cleared by other consultants. Objective - Vital Signs Vital signs: Vital Signs Temp 99.2 F 09/26/18 08:00 Pulse 71 09/26/18 08:00 Resp 12 09/26/18 08:00 BP 128/69 09/26/18 08:00 Pulse Ox 95 09/26/18 08:00 Intake & Output 09/25/18 09/26/18 09/26/18 18:59 06:59 18:59 Intake Total 2152 1180 555 Output Total 435 690 350 Balance 1717 490 205 Weight 145.5 kg 145.6 kg Intake: IV 780 780 195 Sodium Chloride 0.9% 1, 780 780 195 000 ml @ 65 mls/hr IV . [id number] [facility] Rx#:[id number] Oral 1372 400 360 Output: Urine 435 690 350 Other: Voiding Method Indwelling Catheter Indwelling Catheter Indwelling Catheter - Exam Physical Exam: 68-year-old obese, in no distress. On room air. O2 saturation in the high 90s.. Head: Atraumatic normocephalic. HEENT:[Neck is supple.] [No neck masses.] [No thyromegaly.] [No JVD.] Chest: [Clear throughout, no crackles, no rhonchi, no wheezes.] Cardiac Exam: [Normal S1 and S2, no S3 gallop, no murmur.] Abdomen: [Soft, nontender, no megaly, no rebound, no guarding, normal bowel sounds.] Extremities: [No clubbing, no edema, no cyanosis. Right lower extremity dressing is clean, dry and intact.] Neurological Exam: [No focal neurologic deficit.] Psychiatric: Normal mood, affect and mental status examination. Lymphatics: No lymphadenopathy. Skin: No rashes. - Labs CBC & Chem 7: 09/26/18 05:00 09/26/18 05:00 Labs: Abnormal Lab Results - Last 24 Hours (Table) 09/26/18 09/26/18 Range/Units 05:00 05:00 RBC 2.39 L (3.80-5.40) m/uL Hgb 7.5 L (11.4-16.0) gm/dL Hct 23.8 L (34.0-46.0) % Sodium 133 L (137-145) mmol/L Calcium 7.8 L (8.4-10.2) mg/dL Microbiology - Last 24 Hours (Table) 09/23/18 00:58 Blood Culture - Preliminary Blood No Growth after 72 hours Assessment and Plan Assessment: Impression: 1 new onset atrial fibrillation with RVR, remains in sinus rhythm today. 2 status post open reduction and internal fixation of right hip fracture. 3 history of breast cancer 4 history of hypothyroidism 5 osteoarthritis 6 suspect paroxysmal atrial fibrillation. Recommendation: Continue present treatment plan as per cardiology regarding her atrial fibrillation, continue anticoagulation therapy, consider discharge planning today if cleared by other consultants. Time with Patient: Less than 30
--- NOTE | 2018-09-26 12:17 | P.PN ---
Subjective Progress Note Date: 09/26/18 This is a 68-year-old female who is status post ORIF of periprosthetic fracture right total hip arthroplasty and revision of femoral component. This is postoperative day #5. Patient is seen and evaluated at bedside with Dr. Keith Montero in the ICU where the patient was transferred over the weekend due to atrial fibrillation with RVR. Patient is currently in normal sinus rhythm and waiting to be transferred out of the ICU. Patient states that she has been up to use the commode, but it is very painful to move. Patient denies any dizziness, fever/chills, numbness, weakness, tingling, abdominal pain, shortness of breath or chest pain. Objective - Vital Signs Vital signs: Vital Signs Temp 99.2 F 09/26/18 08:00 Pulse 63 09/26/18 12:00 Resp 15 09/26/18 12:00 BP 128/69 09/26/18 08:00 Pulse Ox 95 09/26/18 08:00 Intake & Output 09/25/18 09/26/18 09/26/18 18:59 06:59 18:59 Intake Total 2152 1180 750 Output Total 435 690 510 Balance 1717 490 240 Weight 145.5 kg 145.6 kg Intake: IV 780 780 390 Sodium Chloride 0.9% 1, 780 780 390 000 ml @ 65 mls/hr IV . [id number] [facility]S [facility] 234 BEDS AT [facility] Rx#:[id number] Oral 1372 400 360 Output: Urine 435 690 510 Other: Voiding Method Indwelling Catheter Indwelling Catheter Indwelling Catheter - Exam Vital signs are stable. Patient is in no acute distress and is alert and oriented 3. Calf is soft and nontender to palpation. Dressing is clean, dry, and intact. Patient has full foot and ankle motion without pain or difficulty. Neurovascular status and circulatory status are intact. - Labs CBC & Chem 7: 09/26/18 05:00 09/26/18 05:00 Labs: Abnormal Lab Results - Last 24 Hours (Table) 09/26/18 09/26/18 Range/Units 05:00 05:00 RBC 2.39 L (3.80-5.40) m/uL Hgb 7.5 L (11.4-16.0) gm/dL Hct 23.8 L (34.0-46.0) % Sodium 133 L (137-145) mmol/L Calcium 7.8 L (8.4-10.2) mg/dL Microbiology - Last 24 Hours (Table) 09/23/18 00:58 Blood Culture - Preliminary Blood No Growth after 72 hours Assessment and Plan Assessment: Status post ORIF perprosthetic fracture right total hip arthroplasty and revision of femoral component. (1) S/P total hip arthroplasty Current Visit: Yes Status: Acute Code(s): Z96.649 - PRESENCE OF UNSPECIFIED ARTIFICIAL HIP JOINT SNOMED Code(s): 633392419133 (2) Primary osteoarthritis of right hip Current Visit: Yes Status: Acute Code(s): M16.11 - UNILATERAL PRIMARY OSTEOARTHRITIS, RIGHT HIP SNOMED Code(s): 014153018 (3) Periprosthetic fracture around internal prosthetic right hip joint Current Visit: Yes Status: Acute Code(s): M97.01XA - PERIPROSTH FRACTURE AROUND INTERNAL PROSTH R HIP JT, INIT SNOMED Code(s): 908759209 (4) Status post open reduction with internal fixation of fracture Current Visit: Yes Status: Acute Code(s): Z96.7 - PRESENCE OF OTHER BONE AND TENDON IMPLANTS; Z87.81 - PERSONAL HISTORY OF (HEALED) TRAUMATIC FRACTURE SNOMED Code(s): 848433519 Plan: Continue routine postop care and pain control. An x-ray of the right hip is pending. Strictly nonweightbearing to the right lower extremity. Continue Xarelto for DVT prophylaxis. Venous Doppler ultrasound of the right lower extremity is negative. Daily dressing changes. Virgie to be removed in 10-14 days. Appreciate input from medicine. Hemoglobin today is 7.5. Patient is asymptomatic. Anticipate discharge to [facility] in the next 1-2 days.
--- NOTE | 2018-09-26 13:08 | XR ---
Limited right hip HISTORY: Right hip pain Frontal view of the right hip submitted on 2 images and correlated to prior exam dated 09/21/2018 There is motion on the exam. Right hip arthroplasty is in place and shows a similar appearance with c erclage wires about the proximal femur. Persistent minimal displacement of the distal femur, there ar e fracture fragments within the soft tissues as on prior. There are overlying christopher. Minimal angula tion is noted. Lucency in the soft tissues compatible with postop state. IMPRESSION: Postprocedural changes show similar appearance to previous exam.
--- NOTE | 2018-09-26 15:02 | P.PN ---
Subjective Progress Note Date: 09/26/18 Principal diagnosis: a fib with RVR Patient is a 68-year-old female past medical history of breast cancer , hypothyroidism, osteoarthritis with initially presented to the hospital for elective right total hip arthroplasty. During her hospitalization she developed A. fib with RVR necessitating amiodarone. She is now in normal sinus rhythm and rate controlled. She has been started on Xarelto. Patient seen and examined at bedside. She reports she continues to have right- sided hip pain is limiting her mobility. She's been using the bedpan his back on modified. She denies any chest pain, shortness of breath, palpitations, lightheadedness or dizziness. Bowel movement yesterday. She is willing to go to [facility] for rehab. She understands the importance of following up with Dr. Martinez her PCP and discharged from [facility] as well as following up with Dr. Corado of cardiology she will need medication changes in the future. Objective - Vital Signs Vital signs: Vital Signs Temp 99.2 F 09/26/18 08:00 Pulse 71 09/26/18 08:00 Resp 12 09/26/18 08:00 BP 128/69 09/26/18 08:00 Pulse Ox 95 09/26/18 08:00 Intake & Output 09/25/18 09/26/18 09/26/18 18:59 06:59 18:59 Intake Total 2152 1180 555 Output Total 435 690 350 Balance 1717 490 205 Weight 145.5 kg 145.6 kg Intake: IV 780 780 195 Sodium Chloride 0.9% 1, 780 780 195 000 ml @ 65 mls/hr IV . [id number] [facility] Rx#:[id number] Oral 1372 400 360 Output: Urine 435 690 350 Other: Voiding Method Indwelling Catheter Indwelling Catheter - Exam General: non toxic, no distress, appears at stated age, obese Derm: warm, dry Head: atraumatic, normocephalic, symmetric Eyes: EOMI, no lid lag, anicteric sclera Mouth: no lip lesion, mucus membranes moist Cardiovascular: S1S2 irreg, no murmur, positive posterior tibial pulse bilateral , Lungs: bs bilateral bases, no rhonchi, no rales , no accessory muscle use Abdominal: soft, nontender to palpation, no guarding, no appreciable organomegaly Ext: no gross muscle atrophy, 1+ edema, no contractures Neuro: CN II-XI grossly intact, no focal neuro deficits Psych: Alert, oriented, appropriate affect - Labs CBC & Chem 7: 09/26/18 05:00 09/26/18 05:00 Labs: Abnormal Lab Results - Last 24 Hours (Table) 09/26/18 09/26/18 Range/Units 05:00 05:00 RBC 2.39 L (3.80-5.40) m/uL Hgb 7.5 L (11.4-16.0) gm/dL Hct 23.8 L (34.0-46.0) % Sodium 133 L (137-145) mmol/L Calcium 7.8 L (8.4-10.2) mg/dL Microbiology - Last 24 Hours (Table) 09/23/18 00:58 Blood Culture - Preliminary Blood No Growth after 72 hours Assessment and Plan Assessment: Atrial fibrillation with rapid ventricular response, currently rate controlled - Amiodarone 400 mg twice daily, metoprolol 25 mg by mouth twice daily, Xarelto - cardio recs appreciated, f/u with Dr. Corado as outpatient - ECHO- 50-55% Right hip periprosthetic fracture - ortho recs - NWB - PT/OT - to [facility] - need Anticoagulation Acute blood loss anemia, due to surgery - s/p pRBC - follow HgB - Start oral iron therapy Elevated troponin, due to A fib and demand ischemia - Echo with preserved EF - outpatient cardio recs Hypothyroidism - synthroid - TSH normal Morbid obesity BMI 51.8 - outpatient structured weight losss. Medically optimized for discharge if able to pass voiding trial and pain controlled with movement. DVT prophylaxis: Xarelto Discussed with: Patient, nursing Anticipated discharge: 24- [address]: [facility] A total of 35 minutes was spent on the care of this complex patient more than 50 % of the time was spent in counseling and care coordination.
[2018-09-26] MEDS: FERROUS SULFATE 325 MG TAB PO SCH (16:49)
[2018-09-26] MEDS: SENNOSIDES-DOCUSATE SODIUM 1 EACH TAB PO SCH (20:16)
[2018-09-27 05:34] LABS: Basophils % (A) 0 %; Eosinophils # (A) 0.1 k/uL (0-0.7); Eosinophils % (A) 2 %; HGB 8.3 gm/dL (11.4-16.0); Hypochromasia Slight; Lymphocytes # (A) 1.2 k/uL (1.0-4.8); Lymphocytes % (A) 17 %; MCH 31.5 pg (25.0-35.0); MCHC 33.3 g/dL (31.0-37.0); Mean Platelet Volume 6.3; Monocytes # (A) 0.4 k/uL (0-1.0); Monocytes % (A) 6 %; Neutrophils # (A) 5.2 k/uL (1.3-7.7); Neutrophils % (A) 73 %; Platelet Count 314 k/uL (150-450); Poikilocytosis Slight; RBC 2.64 m/uL (3.80-5.40); WBC 7.1 k/uL (3.8-10.6)
[2018-09-27 05:37] LABS: MCV 94.6 fL (80.0-100.0)
[2018-09-27] MEDS: LEVOTHYROXINE 50 MCG TAB PO SCH (06:35)
[2018-09-27] MEDS: FERROUS SULFATE 325 MG TAB PO SCH (06:35)
[2018-09-27 06:53] LABS: Anion Gap 3 mmol/L; Blood Urea Nitrogen 10 mg/dL (7-17); Carbon Dioxide 25 mmol/L (22-30); Chloride 107 mmol/L (98-107); Glucose 81 mg/dL (74-99); Potassium 4.2 mmol/L (3.5-5.1); Sodium 135 mmol/L (137-145)
--- NOTE | 2018-09-27 07:36 | P.PN ---
Subjective Progress Note Date: 09/27/18 Principal diagnosis: Paroxysmal atrial fibrillation This is a pleasant 68-year-old female patient with a past medical history significant for history of breast cancer as well as thyroid disorder who was admitted to the hospital and underwent right hip surgery. Subsequently the patient did have a prosthetic fracture. She was taken again to the OR where she underwent another hip surgery. We get involved in her care because during her hospitalization and after the second surgery the patient felt palpitation in the chest associated with sweating. No chest pain or chest discomfort. An EKG was performed and revealed atrial fibrillation with RVR which is new to the patient. 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 She underwent an echocardiogram which revealed normal LV function with mild MR, mild TR, and normal pulmonary artery systolic pressure. On follow-up with the patient today, September 272018, she remains asymptomatic from the cardiac standpoint. She did have some temperature last night at 99.8 and I am going to do a urinalysis on her. She remains in normal sinus mechanism. She continues to be on amiodarone as well as metoprolol. Also she is on oral anticoagulation with Xarelto. O Objective - Vital Signs Vital signs: Vital Signs Temp 99.8 F H 09/27/18 06:37 Pulse 70 09/27/18 04:00 Resp 20 09/27/18 04:29 BP 108/62 09/27/18 04:00 Pulse Ox 98 09/27/18 04:00 Intake & Output 09/26/18 09/27/18 09/27/18 18:59 06:59 18:59 Intake Total 1010 780 Output Total 685 1120 Balance 325 -340 Weight 145.4 kg Intake: IV 650 780 Sodium Chloride 0.9% 1, 650 780 000 ml @ 65 mls/hr IV . [id number] [facility] Rx#:[id number] Oral 360 Output: Urine 685 1120 Other: Voiding Method Indwelling Catheter Indwelling Catheter - Constitutional General appearance: Present: no acute distress - Respiratory Respiratory: bilateral: CTA - Cardiovascular Rhythm: regular Heart sounds: normal: S1, S2 - Labs CBC & Chem 7: 09/27/18 04:48 09/27/18 04:48 Labs: Abnormal Lab Results - Last 24 Hours (Table) 09/27/18 09/27/18 Range/Units 04:48 04:48 RBC 2.64 L (3.80-5.40) m/uL Hgb 8.3 L (11.4-16.0) gm/dL Hct 25.0 L (34.0-46.0) % Sodium 135 L (137-145) mmol/L Calcium 8.0 L (8.4-10.2) mg/dL Microbiology - Last 24 Hours (Table) 09/23/18 00:58 Blood Culture - Preliminary Blood No Growth after 96 hours Assessment and Plan Assessment: Assessment #1 status post right hip surgery #2 atrial fibrillation with rapid ventricular response. This is a new to the patient #3 thyroid disorder #4 possible UTI Plan #1 continue the current dose of metoprolol by mouth and amiodarone by mouth #2 continue the current dose of oral anticoagulation #3 obtain urine analysis to rule out UTI #4 follow-up with the patient
[2018-09-27] MEDS: HYDROcodone/APAP 7.5-325MG 1 EACH TAB PO PRN ×2 (08:46→16:10)
[2018-09-27] MEDS: METOPROLOL TARTRATE 25 MG TAB PO SCH (08:46)
[2018-09-27] MEDS: AMIODARONE 200 MG TAB PO SCH (08:47)
[2018-09-27] MEDS: RIVAROXABAN 15 MG TAB PO SCH (08:47)
--- NOTE | 2018-09-27 09:03 | P.PN ---
Subjective Progress Note Date: 09/27/18 This is a 68-year-old female who is status post ORIF of periprosthetic fracture right total hip arthroplasty and revision of femoral component. This is postoperative day #6. Patient is seen and evaluated at bedside with Dr. Keith Montero in the ICU where the patient was transferred over the weekend due to atrial fibrillation with RVR. Patient is currently in normal sinus rhythm and waiting to be transferred out of the ICU. Patient denies any new complaints today. Patient denies any dizziness, fever/chills, numbness, weakness, tingling , abdominal pain, shortness of breath or chest pain. Objective - Vital Signs Vital signs: Vital Signs Temp 99.8 F H 09/27/18 06:37 Pulse 70 09/27/18 04:00 Resp 20 09/27/18 04:29 BP 108/62 09/27/18 04:00 Pulse Ox 98 09/27/18 04:00 Intake & Output 09/26/18 09/27/18 09/27/18 18:59 06:59 18:59 Intake Total 1010 780 Output Total 685 1120 Balance 325 -340 Weight 145.4 kg Intake: IV 650 780 Sodium Chloride 0.9% 1, 650 780 000 ml @ 65 mls/hr IV . [id number] [facility] Rx#:[id number] Oral 360 Output: Urine 685 1120 Other: Voiding Method Indwelling Catheter Indwelling Catheter - Exam Vital signs are stable. Patient is in no acute distress and is alert and oriented 3. Calf is soft and nontender to palpation. Dressing is clean, dry, and intact. Patient has full foot and ankle motion without pain or difficulty. Neurovascular status and circulatory status are intact. - Labs CBC & Chem 7: 09/27/18 04:48 09/27/18 04:48 Labs: Abnormal Lab Results - Last 24 Hours (Table) 09/27/18 09/27/18 Range/Units 04:48 04:48 RBC 2.64 L (3.80-5.40) m/uL Hgb 8.3 L (11.4-16.0) gm/dL Hct 25.0 L (34.0-46.0) % Sodium 135 L (137-145) mmol/L Calcium 8.0 L (8.4-10.2) mg/dL Microbiology - Last 24 Hours (Table) 09/23/18 00:58 Blood Culture - Preliminary Blood No Growth after 96 hours Assessment and Plan Assessment: Status post ORIF perprosthetic fracture right total hip arthroplasty and revision of femoral component. (1) S/P total hip arthroplasty Current Visit: Yes Status: Acute Code(s): Z96.649 - PRESENCE OF UNSPECIFIED ARTIFICIAL HIP JOINT SNOMED Code(s): 310588879007 (2) Primary osteoarthritis of right hip Current Visit: Yes Status: Acute Code(s): M16.11 - UNILATERAL PRIMARY OSTEOARTHRITIS, RIGHT HIP SNOMED Code(s): 250666906 (3) Periprosthetic fracture around internal prosthetic right hip joint Current Visit: Yes Status: Acute Code(s): M97.01XA - PERIPROSTH FRACTURE AROUND INTERNAL PROSTH R HIP JT, INIT SNOMED Code(s): 754771819 (4) Status post open reduction with internal fixation of fracture Current Visit: Yes Status: Acute Code(s): Z96.7 - PRESENCE OF OTHER BONE AND TENDON IMPLANTS; Z87.81 - PERSONAL HISTORY OF (HEALED) TRAUMATIC FRACTURE SNOMED Code(s): 710603131 Plan: Continue routine postop care and pain control. An x-ray of the right hip shows ORIF of the right femur in good position and alignment. Strictly nonweightbearing to the right lower extremity. Continue Xarelto for DVT prophylaxis. Venous Doppler ultrasound of the right lower extremity is negative. Daily dressing changes. Virgie to be removed in 10-14 days. Appreciate input from medicine. Hemoglobin today is 8.3. [facility] the [facility] 1-2 days.
--- NOTE | 2018-09-27 12:00 | P.PN ---
Subjective Progress Note Date: 09/27/18 Principal diagnosis: a fib with RVR Patient is a 68-year-old female past medical history of breast cancer , hypothyroidism, osteoarthritis with initially presented to the hospital for elective right total hip arthroplasty. During her hospitalization she developed A. fib with RVR necessitating amiodarone. She is now in normal sinus rhythm and rate controlled. She has been started on Xarelto. Patient seen and examined at bedside. [place] out yesterday. Still has not been able to stand. States that her pain medications are helping. Had a BM this morning. Per nursing had some urinary burning with urination likely due to casillas being removed yesterday after being in place for several days. Sat on the edge of the bed yesterday. No chest pain, SOB, nausea, or vomiting. Objective - Vital Signs Vital signs: Vital Signs Temp 99.8 F H 09/27/18 06:37 Pulse 70 09/27/18 04:00 Resp 20 09/27/18 04:29 BP 108/62 09/27/18 04:00 Pulse Ox 98 09/27/18 04:00 Intake & Output 09/26/18 09/27/18 09/27/18 18:59 06:59 18:59 Intake Total 1010 780 410 Output Total 685 1120 Balance 325 -340 410 Weight 145.4 kg Intake: IV 650 780 260 Sodium Chloride 0.9% 1, 650 780 260 000 ml @ 65 mls/hr IV . [id number] [facility] Rx#:[id number] Oral 360 150 Output: Urine 685 1120 Other: Voiding Method Indwelling Catheter Indwelling Catheter Bedpan # Voids 1 # Bowel Movements 1 - Exam General: non toxic, no distress, appears at stated age, obese Derm: warm, dry Mouth: no lip lesion, mucus membranes moist Cardiovascular: S1S2 irreg, no murmur, positive posterior tibial pulse bilateral , Lungs: bs bilateral bases, no rhonchi, no rales , no accessory muscle use Abdominal: soft, nontender to palpation, no guarding, no appreciable organomegaly Ext: no gross muscle atrophy, 1+ edema, no contractures Neuro: CN II-XI grossly intact, no focal neuro deficits Psych: Alert, oriented, appropriate affect - Labs CBC & Chem 7: 09/27/18 04:48 09/27/18 04:48 Labs: Abnormal Lab Results - Last 24 Hours (Table) 09/27/18 09/27/18 Range/Units 04:48 04:48 RBC 2.64 L (3.80-5.40) m/uL Hgb 8.3 L (11.4-16.0) gm/dL Hct 25.0 L (34.0-46.0) % Sodium 135 L (137-145) mmol/L Calcium 8.0 L (8.4-10.2) mg/dL Microbiology - Last 24 Hours (Table) 09/23/18 00:58 Blood Culture - Preliminary Blood No Growth after 96 hours Assessment and Plan Assessment: Atrial fibrillation with rapid ventricular response, currently rate controlled - Amiodarone 400 mg twice daily, metoprolol 25 mg by mouth twice daily, Xarelto - cardio recs appreciated, f/u with Dr. Corado as outpatient - ECHO- 50-55% Acute blood loss anemia, due to surgery - s/p pRBC - follow HgB - Start oral iron therapy Elevated troponin, due to A fib and demand ischemia - Echo with preserved EF - outpatient cardio recs Hypothyroidism - synthroid - TSH normal Right hip periprosthetic fracture - ortho recs - NWB - PT/OT - to assisted - Anticoagulation per ortho Morbid obesity BMI 51.8 - outpatient structured weight losss. Medically optimized for discharge if urinalysis negative. DVT prophylaxis: Xarelolya Discussed with: Patient, nursing Anticipated discharge: [address]: [facility] A total of 35 minutes was spent on the care of this complex patient more than 50 % of the time was spent in counseling and care coordination.
[2018-09-27 12:14] LABS: Appearance,Urine Cloudy (Clear); Bilirubin,Urine Negative (Negative); Blood,Urine Negative (Negative); Color,Urine Light Yellow; Glucose,Urine (UA) Negative (Negative); Ketones,Urine Negative (Negative); Leukocyte Esterase,Urine Negative (Negative); Mucus,Urine Rare /hpf; Nitrite,Urine Negative (Negative); PH, Urine 5.5 (5.0-8.0); Protein,Urine Negative (Negative); RBC,Urine 4 /hpf (0-5); Specific Gravity,Urine 1.006 (1.001-1.035); Squamous Epithelial Cell,Urine 3 /hpf (0-4); Urobilinogen,Urine <2.0 mg/dL (<2.0)
[2018-09-27 12:49] VITALS: BP 106/61; PULSE 67; RESP 12; TEMP 97.8
[2018-09-27] MEDS: SODIUM CHLORIDE 0.9% 1,000 ML IV SCH (12:50)
--- NOTE | 2018-09-27 17:04 | P.DS ---
Providers Date of admission: 09/19/18 13:54 Attending physician: Keith Montero Consults: 09/19/18 16:02 Consult Physician Routine Consulting Provider: Marah Martinez Consult Reason/Comments: medical management Do you want consulting provider notified?: Yes 09/19/18 17:57 Consult Physician Routine Consulting Provider: Didi Spears Consult Reason/Comments: medical mangement Do you want consulting provider notified?: Yes 09/23/18 00:04 Consult Physician Routine Consulting Provider: Dhruv Corado Consult Reason/Comments: afib with RVR Do you want consulting provider notified?: Yes 09/23/18 09:50 Consult Physician Urgent Consulting Provider: Gisell Contreras Consult Reason/Comments: ICU management Do you want consulting provider notified?: Yes Primary care physician: Marah Martinez MD - Discharge Diagnosis(es) (1) S/P total hip arthroplasty Status: Acute (2) Primary osteoarthritis of right hip Status: Acute (3) Periprosthetic fracture around internal prosthetic right hip joint Status: Acute (4) Status post open reduction with internal fixation of fracture Status: Acute Hospital Course: This is a 68-year-old female with known history of degenerative arthritis of the right hip. The patient presents for evaluation. After discussion and consideration patient elects to proceed with total hip arthroplasty. The patient is seen preoperatively by Dr. Montero and cleared for surgery by her primary care physician. Patient is admitted to [facility] on 09/19/2018 for total hip arthroplasty. Postoperatively, the patient was found to have a periprosthetic fracture of the right femur. Patient underwent ORIF of the right femur and revision of the femoral component on 09/21/2018 after informed consent was obtained.. Patient did develop postoperative anemia from blood loss. Patient had an episode of atrial fibrillation with RVR and was transferred to the ICU. Patient was evaluated and treated for this by internal medicine, pulmonology and cardiology and was cleared to be transferred out of the ICU. Patient is now in normal sinus rhythm and hemoglobin is stable at 8.3. A doppler ultrasound was performed during this admission and was negative for DVT. Labs and vital signs are stable on day of discharge. On day of discharge patient's hip incision is healing well. There is minimal erythema. There is no drainage noted at this time. There is minimal soft tissue swelling to the hip and thigh. Patient has full foot and ankle motion without difficulty or pain. Neurovascular status to the right lower extremity is intact. Patient is discharged to rehab in good condition. Please see [facility] rec for accurate list of home medications. Plan - Discharge Summary Discharge Rx Participant: No New Discharge Prescriptions: New Amiodarone [Cordarone] 400 mg PO BID #60 tab Ferrous Sulfate [Iron (65 MG Elemental)] 325 mg PO BID-W/MEALS #60 tab Metoprolol Tartrate [Lopressor] 25 mg PO BID #60 tab HYDROcodone/APAP 7.5-325MG [Monitor 7.5-325] 1 - 2 tab PO Q6H PRN #45 tab PRN Reason: Pain Rivaroxaban [Xarelto] 15 mg PO DAILY #30 tab Sennosides [Senokot] 1 tab PO BID #60 tablet Continue Levothyroxine Sodium [Synthroid] 50 mcg PO QAM No Action Naproxen 500 mg PO BID Discharge Medication List Levothyroxine Sodium [Synthroid] 50 mcg PO QAM 10/07/17 [History] Naproxen 500 mg PO BID 09/13/18 [History] Amiodarone [Cordarone] 400 mg PO BID #60 tab 09/26/18 [Rx] Ferrous Sulfate [Iron (65 MG Elemental)] 325 mg PO BID-W/MEALS #60 tab 09/26/18 [Rx] Metoprolol Tartrate [Lopressor] 25 mg PO BID #60 tab 09/26/18 [Rx] HYDROcodone/APAP 7.5-325MG [Monitor 7.5-325] 1 - 2 tab PO Q6H PRN #45 tab [Rx] Rivaroxaban [Xarelto] 15 mg PO DAILY #30 tab 09/27/18 [Rx] Sennosides [Senokot] 1 tab PO BID #60 tablet 09/27/18 [Rx] Follow up Appointment(s)/Referral(s): Dhruv Corado MD [STAFF PHYSICIAN] - 2 Weeks Marah Martinez MD [Primary Care Provider] - 4 Weeks Hanny Saucedo, [NON-STAFF] - As Needed [facility], [NON-STAFF] - As Needed Keith Montero DO [Doctor of Osteopathic Medicine] - 1 Week Patient Instructions/Handouts: Revision Total Joint Arthroplasty (DC) Activity/Diet/Wound Care/Special Instructions: Strictly nonweightbearing to the right lower extremity. Daily dressing changes. Xarelto for DVT prophylaxis. [place] to be removed at follow-up appointment next week. Please follow up with [facility] and call if any questions or concerns. [phone]. Discharge Disposition: TRANSFER TO SNF/ECF
--- NOTE | 2018-09-29 07:55 | CDI ---
Documentation Clarification Form Date: 09/29/2018 From: Tracey Cooper, CCS, CCDS Admit Date: 09/19/2018 1:54:00 PM Patient Name: Heike Boogie Visit Number: [id number] Discharge Date: 09/27/2018 4:15:00 PM ATTENTION: The Clinical Documentation Specialists (CDI) and [facility] Coding Staff appreciate your assistance in clarifying documentation. Please respond to the clarification below the line at the bottom and electronically sign. The CDI & [facility] Coding staff will review the response and follow-up if needed. Please note: Queries are made part of the Legal Health Record. If you have any questions, please contact the author of this message via ITS. Dr. Dhruv Corado: Per the 09/23 Cardiology Consult: "We get involved in her care because during her hospitalization and after the second surgery the patient felt palpitation in the chest associated with sweating. EKG was performed and revealed atrial fibrillation with RVR which is new to the patient." "She was started on amiodarone IV and she continues to be on amiodarone drip at this point. She's also on oral anticoagulation with Xarelto at 10 mg by mouth daily." History/Risk Factors: No cardiac history. Breast CA w/chemo & left mastectomy, OA, Morbid Obesity, Hypothyroidism, former smoker. Clinical Indicators: Elective admission for a right FERMIN and subsequent ORIF of the periprosthetic fracture of the right arthroplasty & revision. EKG 09/22: R 185 Atrial fibrillation w/RVR. ECHO 09/23: Mod LVH, systolic function low normal w/EF 50-55%, Mild TR, Mild MR, Trace-mild pulmonic regurgitation. Treatment: IV Amiodarone, Xarelto, Metoprolol In your professional opinion, can you please clarify the following: Was the patient's episode(s) of atrial fibrillation: An expected outcome of the surgery? An unexpected outcome of the surgery? Other, please specify Unable to determine (Last Revision: December 2017)An unexpected outcome of the surgery MTDD
== END 2018-09-27 16:15 | DRG 467 ==
LOC: 2ORMAIN 13:54 → 4SSUR 17:38 → 2SICU 09-23 00:45
PROVIDERS: ADMIT Orthopaedic Surgery; ATTEND Orthopaedic Surgery
PROC: 0SR906A Replacement of Right Hip Joint with Oxidized Zirconium on Polyethylene Synthetic Substitute, Uncemented, Open Approach (ICD-10-PCS; principal; 2018-09-19 16:30)
PROC: 0SPR0JZ Removal of Synthetic Substitute from Right Hip Joint, Femoral Surface, Open Approach (ICD-10-PCS; 2018-09-21)
PROC: 0SRR0JA Replacement of Right Hip Joint, Femoral Surface with Synthetic Substitute, Uncemented, Open Approach (ICD-10-PCS; 2018-09-21)
PROC: 0QS604Z Reposition Right Upper Femur with Internal Fixation Device, Open Approach (ICD-10-PCS; 2018-09-21)
DX: M16.11 Unilateral primary osteoarthritis, right hip (principal); D62 Acute posthemorrhagic anemia; I24.8 Other forms of acute ischemic heart disease; I47.1 Supraventricular tachycardia; I48.92 Unspecified atrial flutter; M97.01XA Periprosthetic fracture around internal prosthetic right hip joint, initial encounter; M96.661 Fracture of femur following insertion of orthopedic implant, joint prosthesis, or bone plate, right leg; Z68.43 Body mass index [BMI] 50.0-59.9, adult; I97.191 Other postprocedural cardiac functional disturbances following other surgery; E03.9 Hypothyroidism, unspecified; E66.01 Morbid (severe) obesity due to excess calories; F41.9 Anxiety disorder, unspecified; G47.33 Obstructive sleep apnea (adult) (pediatric); I48.0 Paroxysmal atrial fibrillation; Z79.01 Long term (current) use of anticoagulants; Z79.890 Hormone replacement therapy; Z79.899 Other long term (current) drug therapy; Z80.1 Family history of malignant neoplasm of trachea, bronchus and lung; Z80.3 Family history of malignant neoplasm of breast; Z85.3 Personal history of malignant neoplasm of breast; Z87.891 Personal history of nicotine dependence; Z90.12 Acquired absence of left breast and nipple; Z91.048 Other nonmedicinal substance allergy status; Z82.49 Family history of ischemic heart disease and other diseases of the circulatory system; I95.9 Hypotension, unspecified
CPT/HCPCS: 73501; 80048; 80053; 81001; 82330; 82553; 83605; 83735; 84100; 84443; 84484; 85025; 85027; 86850; 86891; 86900; 86901; 86920; 87040; 87324; 88300; 93005; 93306

== ENCOUNTER → 2019-03-02 | Outpatient (CLI) | payer MEDICARE ==
[2019-03-02 22:53] LABS: African American GFR (CKD) 75.1 (60.0-200.0); Anion Gap 7.4 mmol/L (4.00-12.00); BUN/Creat Ratio 23.33 Ratio (12.00-20.00); Calcium 9.8 mg/dL (8.7-10.3); Carbon Dioxide 25.6 mmol/L (21.6-31.8); Potassium 4.1 mmol/L (3.5-5.5)
== END | disposition home or self-care (01) ==
LOC: LABWHC1 15:51
PROVIDERS: ATTEND Family Medicine
DX: E87.6 Hypokalemia (principal)
CPT/HCPCS: 36415; 80048

== ENCOUNTER → 2019-04-23 | Outpatient (CLI) | payer MEDICARE ==
--- NOTE | 2019-04-23 20:28 | BD ---
EXAMINATION TYPE: Axial Bone Density DATE OF EXAM: 04/23/2019 COMPARISON: NONE CLINICAL HISTORY: 69 YR OLD FEMALE....ICD-10 CODE: Z78.0 POSTMENOPAUSAL Height: 64.2 Weight: 255 FRAX RISK QUESTIONS: History of Fracture in Adulthood: YES 3. 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 Bone mineral density as measured about the Lumbar spine is: ----- L1-L4(G/cm2): 1.237 T Score Values are as follows: ----- L1: 0.3 ----- L2: -0.1 ----- L3: 1.2 ----- L4: 0.3 ----- L1-L4: 0.5 Bone mineral density FIRST DEXA SCAN AT [facility] Bone mineral density about the L hip (g/cm2): 0.785 T Score values are as follows: -----L Neck: -2.4 -----L Total: -1.8 Bone mineral density FIRST DEXA AT [facility] FRAX%s: THERE IS A 19.0% CHANCE FOR A MAJOR OSTEOPOROTIC FX AND A 4.2% FOR HIP.....PROBABILITY FOR FX IN 10 YRS TIME IMPRESSION: Osteopenia (T Score between -2.5 and -1). Note that measurements border on osteoporosis at the left h ip. There is slightly increased risk of fracture and the patient may be considered for treatment. Re-Screen 2-5 years. NOTE: T-SCORE=SD OF THE YOUNG ADULT MEAN.
== END | disposition home or self-care (01) ==
LOC: RADBDWWP 13:00
PROVIDERS: ATTEND Family Medicine
DX: M85.88 Other specified disorders of bone density and structure, other site (principal); Z78.0 Asymptomatic menopausal state
CPT/HCPCS: 77080

== ENCOUNTER → 2021-01-29 | Outpatient (CLI) | payer MEDICARE ==
--- NOTE | 2021-01-29 11:11 | CT ---
EXAMINATION TYPE: CT femur RT wo con DATE OF EXAM: 01/29/2021 COMPARISON: Prior right hip x-ray September 26, 2018 and older x-rays. HISTORY: mechanical loosening of other internal planning. Fall injury with replacement hardware failu re. Surgical planning. CT DLP: 825 mGycm Automated exposure control for dose reduction was used. FINDINGS: Metallic hardware from longstem right hip arthroplasty is redemonstrated. Metallic acetabular compone nt is stable and satisfactory in position. Overlying cerclage wires redemonstrated. There is interval healing or callus formation near the site of the inferior 5 cerclage wires at site of prior hardware fracture. Distal to this there is abnormal concentric lucency surrounding the prosthesis over a roug hly 11 cm in length which is new from 2019 radiographs. Slightly more prominent or eccentric posterio r lucency is noted on the axial images. Marked cortical thinning with areas of breakthrough posterior distal prosthesis level noted. Abnormal central soft tissue density is identified in the central enzo ent area on soft tissue windows. Heterotopic ossification near the greater trochanter is present. Moderate muscular atrophy over the a nterior lateral aspect. Visualized portion of the right knee joint shows moderate to severe tricompartment joint space loss a nd spurring patellofemoral tibiofemoral and lateral tibial femoral compartments incidentally noted. IMPRESSION: As above. Interval healing. Significant new soft tissue density surrounding distal prosth esis raising concern for prosthetic infection versus loosening, correlate clinically. Former is favor ed on CT images.
== END ==
LOC: RADCTMAIN 08:26
PROVIDERS: ATTEND Orthopaedic Surgery
DX: T84.038A Mechanical loosening of other internal prosthetic joint, initial encounter (principal); M62.50 Muscle wasting and atrophy, not elsewhere classified, unspecified site; M61.9 Calcification and ossification of muscle, unspecified

== ENCOUNTER 2021-02-10 08:30 | Day surgery (SDC) | payer MEDICARE ==
[2021-02-10 09:22] LABS: Mean Platelet Volume 6.5; Platelet Count 256 k/uL (150-450)
[2021-02-10 09:29] LABS: INR 1.1 (<1.2); Prothrombin Time 11.7 sec (9.0-12.0)
[2021-02-10 09:32] VITALS: RESP 18; TEMP 98.2
[2021-02-10 12:19] VITALS: BP 145/71; PULSE 88
--- NOTE | 2021-02-12 08:31 | US ---
Ultrasound guided right hip aspiration Ultrasound guided soft tissue/synovial biopsy right hip Date: 02/10/2021 History: 71-year-old female M71.151, infected right hip replacement. Referred for aspiration. Procedure: 1. Ultrasound of the right hip 2. Attempted aspiration of the right hip joint with wash performed. 3. Synovial/joint tissue biopsy TECHNIQUE: The procedure, risks, and alternatives, were discussed with the patient, who requested rosario t we proceed. The consent form was signed, and teach-back occurred. The site/side of the procedure wa s marked with a line with participation by the patient. The accompanying paperwork was verified for c onsistency. A directed history and physical exam was performed prior to the procedure. Medication rec onciliation was performed by ancillary personnel. A critical pause was performed with assisting akilah queen just prior to the procedure and the patient's identity was confirmed using 2 identifiers. Imagin g guidance was utilized to select the precise skin entry point just prior to the procedure. The right hip was prepped and draped in the usual sterile fashion and local 1% lidocaine anesthesia w as instilled. A sizable area of apparent fluid was noted at the prosthetic right hip joint anteriorly . (1) Under ultrasound guidance, an 18 gauge long needle was introduced into the right hip joint collec tion. Ultrasound confirmed the position of the needle tip. However, multiple attempts at aspiration w ere successful and only obtaining a few drops of blood-tinged fluid. Subsequent wash with preservativ e-free sterile saline yielded a total of 5 mL clear, blood-tinged fluid. (2) Under ultrasound surveillance, subsequent core biopsy of the very thick fluid or possible granula tion tissue utilizing a [employer] 18-gauge needle yielded 4 core specimens which were placed in ster ile saline and labeled for microbial culture of the tissue. The needle was removed, hemostasis obtained, and a dressing placed. The patient tolerated the procedu re well. There were no immediate complications. After the procedure, the patient's condition was unchanged. Es timated blood loss was minimal. The patient was instructed on routine postprocedure precautions. IMPRESSION: 1. Only a few drops of blood-tinged fluid could be obtained from the right hip aspiration. A wash yie lded approximately 5 mL of clear blood-tinged fluid and was labeled for lab analysis. 2. We performed subsequent 18-gauge synovial/joint tissue core biopsy of either the very thickened fl uid or granulation tissue with specimens placed in sterile saline for microbial culture of the tissue . Requested lab results pending.
== END 2021-02-10 12:05 | disposition home or self-care (01) ==
LOC: RADPROMAIN 08:30
PROVIDERS: ATTEND Orthopaedic Surgery
DX: T84.51XA Infection and inflammatory reaction due to internal right hip prosthesis, initial encounter (principal)
CPT/HCPCS: 20206; 20611; 36415; 76942; 85049; 85610; 87070; 87075; 87205; 88305

== ENCOUNTER → 2021-05-04 | Outpatient (CLI) | payer MEDICARE ==
--- NOTE | 2021-05-04 13:02 | XR ---
EXAMINATION TYPE: XR chest 2V DATE OF EXAM: 05/04/2021 COMPARISON: NONE HISTORY: I48.91 Preop TECHNIQUE: Frontal and lateral views of the chest are obtained. FINDINGS: There is no focal air space opacity, pleural effusion, or pneumothorax seen. The cardiac silhouette size is within normal limits. The osseous structures are intact, there is a spinal curva ture, degenerative disc change. IMPRESSION: No acute cardiopulmonary process.
== END | disposition home or self-care (01) ==
LOC: RADXRMAIN 11:11
PROVIDERS: ATTEND Family Medicine
DX: I48.91 Unspecified atrial fibrillation (principal)
CPT/HCPCS: 71046

== ENCOUNTER 2021-07-22 14:22 | Emergency (ER) | payer MEDICARE ==
[2021-07-22 14:58] VITALS: RESP 17
--- NOTE | 2021-07-22 15:16 | ED ---
General Adult HPI - General Chief complaint: Extremity Injury, Lower Stated complaint: Hip injury Time Seen by Provider: 07/22/21 14:50 Source: patient, EMS, RN notes reviewed, old records reviewed Mode of arrival: EMS Limitations: physical limitation - History of Present Illness Initial comments: This is a 71-year-old female who presents emergency Department complaining that she's unable to bear weight on her right hip. Patient states she's had multiple surgeries on the hip and the femur and her last surgery was July 02 in [place]. Patient states she got up this morning was walking around then later she was unable to bear weight so she thinks she may have dislocated her hip. Patient states this occurred one time was she was at the facility prior to discharge and that is why she had a follow-up surgery. Patient denies any injury or trauma or movement that would have caused the hip to be dislocated. Patient states the area around the incision is mildly red but it is been that way and not getting any worse. - Related Data Home Medications Medication Instructions Recorded Confirmed Levothyroxine Sodium [Synthroid] 50 mcg PO DAILY 10/07/17 07/22/21 Warfarin [Coumadin] 5 mg PO SUTU@2100 02/03/21 07/22/21 Acetaminophen Tab [Tylenol Tab] 1,000 mg PO TID 07/22/21 07/22/21 Metoprolol Tartrate [Lopressor] 25 mg PO DAILY 07/22/21 07/22/21 Warfarin [Coumadin] 3.75 mg PO MOWETHFRSA@2100 07/22/21 07/22/21 Allergies Allergy/AdvReac Type Severity Reaction Status Date / Time nickel Allergy Unknown Rash/Hives Verified 07/22/21 16:53 Review of Systems ROS Statement: Those systems with pertinent positive or pertinent negative responses have been documented in the HPI. ROS Other: All systems not noted in ROS Statement are negative. Past Medical History Past Medical History: Cancer, Osteoarthritis (OA), Thyroid Disorder Additional Past Medical History / Comment(s): HX OF BREAST CANCER WITH CHEMO (1993)., USES CANE, post hip replacement patient unable to lift leg, uses wheelchair, able to weightbear History of Any Multi-Drug Resistant Organisms: None Reported Past Surgical History: Breast Surgery Additional Past Surgical History / Comment(s): LEFT MASTECTOMY WITH LYMPH NODE REMOVAL, hip replacement 2018, post op fracture of the femur, revision and repair. 2020infection vs loosening of prothetic Past Anesthesia/Blood Transfusion Reactions: No Reported Reaction Additional Past Anesthesia/Blood Transfusion Reaction / Comment(s): STATES WHEN SHE LAYS ON HER SIDE HER HEART BEATS IRREGULAR. Past Psychological History: No Psychological Hx Reported Smoking Status: Former smoker Past Alcohol Use History: Occasional Past Drug Use History: None Reported - Past Family History Father Family Medical History: Cancer Additional Family Medical History / Comment(s): LUNG CANCER Sister(s) Family Medical History: Cancer Additional Family Medical History / Comment(s): BREAST CANCER General Exam - General Exam Comments Initial Comments: GENERAL Patient is well-developed and well-nourished. Patient is in mild distress. EYES Patient's pupils are equal and round. Extraocular motion is intact SKIN Unremarkable NEURO The patient is alert and oriented 3 PYSCH Patient has normal interpersonal interactions. MUSCULOSKELETAL Incision on the right hip shows no area of fluctuance there is mild erythema around it. Palpation of the right hip laterally causes the patient pain. I do not notice any shortening or rotation of the leg. Limitations: physical limitation Course Vital Signs 07/22/21 14:50 Temperature 97.9 F Pulse Rate 78 Respiratory 17 Rate Blood Pressure 125/85 O2 Sat by Pulse 99 Oximetry Medical Decision Making - Medical Decision Making X-ray of the hip shows a dislocated prosthetic hip I spoke with Dr. Diaz and explained the patient's hip dislocation to him and let him know that there was a ring around the prosthetic device to keep the head of the prosthesis in place and he thought that this was a hip dislocation and need to be put back into place in the OR. I ordered all the appropriate order labs. I admitted the patient Dr. Joe Diaz called back and indicated that this was not something they would be able to and are OR and that the patient needed to be transferred. I spoke with her surgeon physician personal injury legal assistant in [place] and they were okay with me transferring the patient to [facility]. I spoke with [facility] accept the transfer. - Lab Data Result diagrams: 07/22/21 16:38 07/22/21 16:38 Lab Results 07/22/21 07/22/21 07/22/21 Range/Units 16:38 16:38 16:38 WBC 5.9 (3.8-10.6) k/uL RBC 3.16 L (3.80-5.40) m/uL Hgb 9.5 L (11.4-16.0) gm/dL Hct 28.9 L (34.0-46.0) % MCV 91.6 (80.0-100.0) fL MCH 30.1 (25.0-35.0) pg MCHC 32.9 (31.0-37.0) g/dL RDW 14.0 (11.5-15.5) % Plt Count 390 (150-450) k/uL MPV 7.1 Neutrophils % 72 % Lymphocytes % 18 % Monocytes % 7 % Eosinophils % 1 % Basophils % 0 % Neutrophils # 4.2 (1.3-7.7) k/uL Lymphocytes # 1.0 (1.0-4.8) k/uL Monocytes # 0.4 (0-1.0) k/uL Eosinophils # 0.1 (0-0.7) k/uL Basophils # 0.0 (0-0.2) k/uL PT 25.1 H (9.0-12.0) sec INR 2.6 H (<1.2) APTT 35.3 H (22.0-30.0) sec Sodium 136 L (137-145) mmol/L Potassium 4.7 (3.5-5.1) mmol/L Chloride 107 (98-107) mmol/L Carbon Dioxide 19 L (22-30) mmol/L Anion Gap 10 mmol/L BUN 23 H (7-17) mg/dL Creatinine 0.78 (0.52-1.04) mg/dL Est GFR (CKD-EPI)AfAm 88 (>60 ml/min/1.73 sqM) Est GFR (CKD-EPI)NonAf 77 (>60 ml/min/1.73 sqM) Glucose 88 (74-99) mg/dL Calcium 9.0 (8.4-10.2) mg/dL Total Bilirubin 0.7 (0.2-1.3) mg/dL AST 36 (14-36) U/L ALT 8 (4-34) U/L Alkaline Phosphatase 157 H (38-126) U/L Total Protein 7.0 (6.3-8.2) g/dL Albumin 3.6 (3.5-5.0) g/dL Coronavirus (PCR) (Not Detectd) 07/22/21 Range/Units 18:07 WBC (3.8-10.6) k/uL RBC (3.80-5.40) m/uL Hgb (11.4-16.0) gm/dL Hct (34.0-46.0) % MCV (80.0-100.0) fL MCH (25.0-35.0) pg MCHC (31.0-37.0) g/dL RDW (11.5-15.5) % Plt Count (150-450) k/uL MPV Neutrophils % % Lymphocytes % % Monocytes % % Eosinophils % % Basophils % % Neutrophils # (1.3-7.7) k/uL Lymphocytes # (1.0-4.8) k/uL Monocytes # (0-1.0) k/uL Eosinophils # (0-0.7) k/uL Basophils # (0-0.2) k/uL PT (9.0-12.0) sec INR (<1.2) APTT (22.0-30.0) sec Sodium (137-145) mmol/L Potassium (3.5-5.1) mmol/L Chloride (98-107) mmol/L Carbon Dioxide (22-30) mmol/L Anion Gap mmol/L BUN (7-17) mg/dL Creatinine (0.52-1.04) mg/dL Est GFR (CKD-EPI)AfAm (>60 ml/min/1.73 sqM) Est GFR (CKD-EPI)NonAf (>60 ml/min/1.73 sqM) Glucose (74-99) mg/dL Calcium (8.4-10.2) mg/dL Total Bilirubin (0.2-1.3) mg/dL AST (14-36) U/L ALT (4-34) U/L Alkaline Phosphatase (38-126) U/L Total Protein (6.3-8.2) g/dL Albumin (3.5-5.0) g/dL Coronavirus (PCR) Not Detected (Not Detectd) Disposition Clinical Impression: Hip dislocation, right Disposition: TRANSFER TO [facility] Referrals: Daniel Pena DO [Primary Care Provider] - 1-2 days Time of Disposition: 16:32
--- NOTE | 2021-07-22 15:35 | XR ---
EXAMINATION TYPE: XR Hip RT and AP Pelvis DATE OF EXAM: 07/22/2021 COMPARISON: CT right femur January 29, 2021 HISTORY: Postsurgical pain. TECHNIQUE: A single AP view of the pelvis is obtained. Two views of the right hip are obtained. FINDINGS: Osseous structures are demineralized. Scattered bilateral pelvic phleboliths. Stable mild axial joint space loss left hip. Sacroiliac joints maintained. Pubic symphysis intact. Right hip joint shows long stem oncologic prosthesis through trabeculated irregular bone similar in a ppearance to prior study. Interval removal of cerclage wires. Some ossific fusion at site of prior no nunion. Etiology uncertain for the bony findings, correlate clinically and with prior aspiration. Met allic acetabular component redemonstrated with a internal constrained metallic liner now seen new fro m prior. There is new prosthesis dislocation of the femoral head component superior and lateral to th e acetabular component likely posterior in direction. IMPRESSION: There is interval surgery to the right hip prosthesis with dislocation of the prosthesis despite interval placement of a constrained liner in the acetabular component.
--- NOTE | 2021-07-22 17:05 | XR ---
EXAMINATION TYPE: XR chest 1V portable DATE OF EXAM: 07/22/2021 CLINICAL HISTORY: Short of breath. Presurgical. TECHNIQUE: Portable frontal view of the chest. COMPARISON: 05/04/2021 FINDINGS: Low lung volumes accentuate the cardiac silhouette and lung markings. The cardiomediastina l silhouette is within normal limits for size. Pulmonary vasculature is normal. Mildly asymmetric haz iness of the left midlung. No pleural effusion. No pneumothorax seen. No acute displaced osseous fra cture. IMPRESSION: Mild haziness of the left midlung may be related to low lung volumes and overlapping soft tissue dens ity.
[2021-07-22 17:24] LABS: Basophils % (A) 0 %; Eosinophils # (A) 0.1 k/uL (0-0.7); Eosinophils % (A) 1 %; HCT 28.9 % (34.0-46.0); HGB 9.5 gm/dL (11.4-16.0); Lymphocytes % (A) 18 %; MCH 30.1 pg (25.0-35.0); MCHC 32.9 g/dL (31.0-37.0); MCV 91.6 fL (80.0-100.0); Mean Platelet Volume 7.1; Monocytes # (A) 0.4 k/uL (0-1.0); Monocytes % (A) 7 %; Neutrophils # (A) 4.2 k/uL (1.3-7.7); Neutrophils % (A) 72 %; Platelet Count 390 k/uL (150-450); RBC 3.16 m/uL (3.80-5.40); WBC 5.9 k/uL (3.8-10.6)
[2021-07-22 17:36] LABS: Albumin 3.6 g/dL (3.5-5.0); Total Bilirubin 0.7 mg/dL (0.2-1.3)
[2021-07-22 17:37] LABS: INR 2.6 (<1.2); Partial Thromboplastin Time 35.3 sec (22.0-30.0); Prothrombin Time 25.1 sec (9.0-12.0)
[2021-07-22 17:38] LABS: Potassium 4.7 mmol/L (3.5-5.1)
[2021-07-22] MEDS ORDERED: HYDROmorphone 0.5 MG/0.5 ML SYRINGE IVP STA (17:53)
[2021-07-22 19:09] VITALS: BP 125/80; PULSE 61; TEMP 98.1
== END 2021-07-22 19:08 ==
LOC: EC 14:22
DX: T84.020A Dislocation of internal right hip prosthesis, initial encounter (principal); E07.9 Disorder of thyroid, unspecified; Z20.822 Contact with and (suspected) exposure to COVID-19; Z87.891 Personal history of nicotine dependence; Z91.09 Other allergy status, other than to drugs and biological substances; Z79.890 Hormone replacement therapy; X58.XXXA Exposure to other specified factors, initial encounter; Y93.01 Activity, walking, marching and hiking
CPT/HCPCS: 36415; 80053; 85025; 85610; 85730; 87635; 73502; 71045; 99284; 96374; J1170

== ENCOUNTER → 2022-08-05 | Outpatient (CLI) | payer MEDICARE ==
--- NOTE | 2022-08-06 13:52 | MM ---
Reason for Exam: Screening (asymptomatic). Last mammogram was performed 4 year(s) and 10 month(s) ago. Patient History: Menarche at age 12. Patient has no children. Postmenopausal. Breast cancer, age 43. Progesterone for 3 months from age 42 until age 42. Hormonal Contraceptives for 15 years from age 19 until age 34. 1992, Mastectomy on the Left side. 1992, Chemotherapy. Sister had breast cancer, age 42. Prior Study Comparison: 08/21/2013 Right Diagnostic Mammogram, [facility]. 11/04/2015 Right Diagnostic Mammogram, [facility]. 10/26/2017 Right Diagnostic Mammogram, [facility]. Tissue Density: The breast tissue is extremely dense which could obscure a lesion on mammography. Findings: Analyzed By CAD. Pattern appears stable. No suspicious groups of microcalcifications, spiculated or lobular masses, architectural distortion or other secondary signs of malignancy are mammographically apparent. Overall Assessment: Benign, BI-RAD 2 Management: Screening Mammogram of the right breast in 1 year. A negative mammogram report should not preclude additional follow up of suspicious palpable abnormalities. Patient should continue monthly self breast exam. A clinical breast exam by your physician is recommended on an annual basis and results should be correlated with mammographic findings. Electronically signed and approved by: Ethan Murphy D.O. Radiologis
== END | disposition home or self-care (01) ==
LOC: RADMAMWWP 08:50
PROVIDERS: ATTEND Family Medicine
DX: Z12.31 Encounter for screening mammogram for malignant neoplasm of breast (principal); Z78.0 Asymptomatic menopausal state; Z80.3 Family history of malignant neoplasm of breast
CPT/HCPCS: 77067

== ENCOUNTER → 2023-01-26 | Outpatient (CLI) | payer MEDICARE ==
--- NOTE | 2023-01-26 15:18 | BD ---
EXAMINATION TYPE: Axial Bone Density DATE OF EXAM: 01/26/2023 CLINICAL HISTORY: 73 years old Female. ICD-10 CODE: Z78.0 ASYMPTOMATIC MENOPAUSAL STATE Height: 65 in Weight: 208 lbs FRAX RISK QUESTIONS: History of Fracture in Adulthood: rt femur age 68 Secondary Osteoporosis: 3. Menopause before 45: age 42 RISK FACTORS HISTORY OF: History of Wrist Fracture: rt wrist age 9 Surgery to Hip(right): age 68 Family History of Osteoporosis: yes sister Active: limited Diet low in dairy products/other sources of calcium: yes Postmenopausal woman: age 42 Lost more than 2 inches in height since high school: yes 3" MEDICATIONS: Thyroid Medications: yes Which medication: Levothyroxine How Lon+ years Additional Medications: calcium, vit d, b12, blood pressure meds, blood thinner Additional History: breast cancer with chemo EXAM MEASUREMENTS: Bone mineral densitometry was performed using the [employer] System. Bone mineral density as measured about the Lumbar spine is: ----- L1-L4(G/cm2): 1.173 T Score Values are as follows: ----- L1: -0.7 ----- L2: 0.0 ----- L3: 0.9 ----- L4: -0.8 ----- L1-L4: -0.1 Z Score Values are as follows: ----- L1: 0.1 ----- L2: 0.8 ----- L3: 1.7 ----- L4: 0.0 ----- L1-L4: 0.7 Bone mineral density has: Decreased -5.2% since study of: 04/23/2019 Bone mineral density about the L hip (g/cm2): 0.762 T Score values are as follows: -----L Neck: -2.1 -----L Total: -2.4 Z Score values are as follows: -----L Neck: -0.9 -----L Total: -1.4 Bone mineral density has: Decreased -10.6% since study of: 04/23/2019 FRAX%s: The graph provided illustrates a 19.3% chance for a major osteoporotic fx and a 4.5% chance f or the hips probability for fx in 10 years time. IMPRESSION: Osteopenia (T Score between -2.5 and -1). There is slightly increased risk of fracture and the patient may be considered for treatment. Re-Screen 2-5 years. NOTE: T-SCORE=SD OF THE YOUNG ADULT MEAN.
== END | disposition home or self-care (01) ==
LOC: RADBDWWP 12:55
PROVIDERS: ATTEND Family Medicine
DX: M85.89 Other specified disorders of bone density and structure, multiple sites (principal); C50.919 Malignant neoplasm of unspecified site of unspecified female breast; Z78.0 Asymptomatic menopausal state
CPT/HCPCS: 77080

== ENCOUNTER 2023-04-08 12:13 | Day surgery (SDC) | payer MEDICARE ==
[2023-04-04 12:41] VITALS: BMI 32.3
[~2023-04-08 12:13] MED LIST changes: -ACETAMINOPHEN TAB 500 MG TAB PO ONE; -DEXAMETHASONE SOD PHOSPHATE 10 MG/ML 1 ML VIAL IV ONE; +LACTATED RINGERS 1,000 ML IV SCH; +LIDOCAINE 1% (10MG/ML) FOR IV START INTRADERMA PRN; -LIDOCAINE 1% 20 ML VIAL (10MG/ML) FOR IV START INTRADERMA PRN; -MELOXICAM 7.5 MG TAB PO ONE; -MIDAZOLAM (PF) 2 MG/2 ML VIAL IV PRN; -ONDANSETRON 4 MG/2 ML VIAL IVP ONE; +ONDANSETRON 4 MG/2 ML VIAL IVP PRN; -ROPIVACAINE 246.25 MG, EPINEPHrine 0.5 MG, KETOROLAC 30 MG, cloNIDine HCL/PF 80 MCG, WA... MISCELLANE ONE; -SCOPOLAMINE 1.5MG/72HR PATCH TRANSDERM ONE; -TRANEXAMIC ACID 1,000 MG in SODIUM CHLORIDE 0.9% 50 ML IVPB ONE
[2023-04-08] MEDS ORDERED: PROPOFOL 10 MG/ML 20 ML VIAL IV ONE (13:36)
--- NOTE | 2023-04-08 14:03 | P.PCN ---
Date of Procedure: 04/08/23 Procedure(s) Performed: BRIEF HISTORY: Patient is a 73-year-old pleasant white female scheduled for an elective colonoscopy as a part of evaluation of prior history of colon polyps. Last colonoscopy was 5 years ago. PROCEDURE PERFORMED: Colonoscopy with snare polypectomy. PREOPERATIVE DIAGNOSIS: History of colon polyps. IV sedation per Anesthesia. PROCEDURE: After informed consent was obtained, the patient, was brought into the endoscopy unit. IV sedation was administered by Anesthesia under continuous monitoring. Digital rectal examination was normal. Initially the Olympus CF-160 flexible video colonoscope was then inserted in the rectum, gradually advanced into the cecum without any difficulty. Careful examination was performed as the scope was gradually being withdrawn. Ileocecal valve and the appendiceal orifice were visualized and appeared normal. Prep was excellent. Mucosa of the cecum, ascending colon polyp removed by cold snare polypectomy. In the hepatic flexure there was a 5 mm and 1 cm polyp removed by snare polyp rectum he. Rest of the ascending colon, transverse colon, descending colon, sigmoid colon, and rectum appeared normal. Scattered sigmoid diverticula cyst. Retroflexion was performed in the rectum and no lesions were seen. The patient tolerated the procedure well. IMPRESSION: 7 mm cecal polyp status post cold snare polypectomy 5 mm and 1 cm hepatic pressure polyp serous posterior polypectomy Scattered sigmoid diverticulosis RECOMMENDATIONS: Findings of this examination were discussed with the patient as well as a family. She was advised to follow with the biopsy results. If the biopsy does adenoma she can have a repeat colonoscopy in 3 years
[2023-04-08 14:10] VITALS: RESP 16
[2023-04-08 15:15] VITALS: BP 104/67; PULSE 69
== END 2023-04-08 15:06 | disposition home or self-care (01) ==
LOC: ORWHC2ENDO 12:13
PROVIDERS: ATTEND Internal Medicine Gastroenterology
DX: Z12.11 Encounter for screening for malignant neoplasm of colon (principal); D12.3 Benign neoplasm of transverse colon; D12.0 Benign neoplasm of cecum; Z85.3 Personal history of malignant neoplasm of breast; I10 Essential (primary) hypertension; I48.91 Unspecified atrial fibrillation; K57.30 Diverticulosis of large intestine without perforation or abscess without bleeding; E03.9 Hypothyroidism, unspecified; Z86.010 Personal history of colon polyps; Z79.01 Long term (current) use of anticoagulants; Z79.890 Hormone replacement therapy; Z87.891 Personal history of nicotine dependence; Z79.899 Other long term (current) drug therapy
CPT/HCPCS: 88305; 45385; J2704

== ENCOUNTER → 2023-05-04 | Outpatient (CLI) | payer MEDICARE ==
[2023-05-04 15:17] LABS: Basophils # (A) 0.04 X 10*3/uL (0.00-0.10); Basophils % (A) 0.7 %; Eosinophils # (A) 0.02 X 10*3/uL (0.04-0.35); Eosinophils % (A) 0.4 %; HCT 31.2 % (37.2-46.3); HGB 9.8 d/dL (12.0-15.0); Lymphocytes # (A) 1.25 X 10*3/uL (0.90-5.00); Lymphocytes % (A) 22.7 %; MCH 26.8 pg (27.0-32.0); MCHC 31.4 d/dL (32.0-37.0); MCV 85.2 FL (80.0-97.0); Mean Platelet Volume 8.4 FL (9.5-12.2); Monocytes # (A) 0.59 X 10*3/uL (0.20-1.00); Monocytes % (A) 10.7 %; NRBC Per 100 WBC 0 X 10*3/uL (0.00-0.01); Neutrophils # (A) 3.58 X 10*3/uL (1.80-7.70); Neutrophils % (A) 65.1 %; Platelet Count 467 X 10*3/uL (140-440); RBC 3.66 X 10*6/uL (4.10-5.20); RDW 16.7 % (11.5-14.5)
[2023-05-04 16:50] LABS: Erythrocyte Sedimentation Rate 39 mm/Hr (0-30)
== END | disposition home or self-care (01) ==
LOC: LABWHC1 11:06
PROVIDERS: ATTEND Orthopaedic Surgery
DX: Z09 Encounter for follow-up examination after completed treatment for conditions other than malignant neoplasm (principal); I10 Essential (primary) hypertension; Z96.641 Presence of right artificial hip joint; Z85.9 Personal history of malignant neoplasm, unspecified; M25.551 Pain in right hip; M25.561 Pain in right knee
CPT/HCPCS: 36415; 85025; 85652; 86140

== ENCOUNTER → 2023-07-15 | Outpatient (CLI) | payer MEDICARE ==
--- NOTE | 2023-07-15 11:04 | XR ---
EXAMINATION TYPE: XR chest 2V DATE OF EXAM: 07/15/2023 COMPARISON: 07/22/2021 TECHNIQUE: PA and lateral views submitted. HISTORY: Weight loss FINDINGS: The lungs are clear and there is no pneumothorax, pleural effusion, or focal pneumonia. Heart size normal and no overt failure. Osseous structures demonstrate hypertrophic and degenerative changes of the spine. Thoracic aorta is prominent in size with ectasia. Emphysematous changes noted. Arthropathy of the shoulders. IMPRESSION: 1. No acute process.
[2023-07-15 16:12] LABS: ALT 8 U/L (8-44); AST 10 U/L (13-35); Albumin 3.5 g/dL (3.8-4.9); Albumin/Globulin Ratio 0.69 Ratio (1.60-3.17); Alkaline Phosphatase 105 U/L (41-126); BUN/Creat Ratio 22.44 Ratio (12.00-20.00); Blood Urea Nitrogen 20.2 mg/dL (9.0-27.0); Calcium 9.7 mg/dL (8.7-10.3); Carbon Dioxide 23.4 mmol/L (21.6-31.8); Chloride 101 mmol/L (96-109); Creatine Kinase 35 U/L (26-186); Globulin 5.1 g/dL (1.6-3.3); Glucose 82 mg/dL (70-110); Potassium 4.6 mmol/L (3.5-5.5); Rheumatoid Factor, Qnt <15 IU/mL (0-15); Sodium 136 mmol/L (135-145); Total Bilirubin 0.4 mg/dL (0.3-1.2); Total Protein 8.6 g/dL (6.2-8.2)
[2023-07-15 21:47] LABS: Cyclic Citrull Pep IgG Unit <1.5 U/mL (<=3.9); Cyclic Citrullinated Pep IgG Negative
[2023-07-16 12:39] LABS: HLA B27 NEGATIVE
== END | disposition home or self-care (01) ==
LOC: RADXRMAIN 10:35
PROVIDERS: ATTEND Family Medicine
DX: M25.561 Pain in right knee (principal); R63.4 Abnormal weight loss
CPT/HCPCS: 71046; 80053; 82550; 86140; 86200; 86431; 86812

== ENCOUNTER 2023-08-30 08:09 | Day surgery (SDC) | payer MEDICARE ==
[2023-08-26 08:49] VITALS: BMI 32.3
[2023-08-30] MEDS ORDERED: LACTATED RINGERS 1,000 ML IV ONE ×2 (08:39→09:37)
[2023-08-30 08:41] VITALS: TEMP 97.7
[2023-08-30] MEDS ORDERED: LIDOCAINE 2% (PF) 20 MG/ML 5 ML VIAL ONE (09:22)
[2023-08-30] MEDS ORDERED: PROPOFOL 10 MG/ML 20 ML VIAL IV ONE (09:22)
[2023-08-30 09:53] VITALS: RESP 16
--- NOTE | 2023-08-30 10:05 | P.PCN ---
Date of Procedure: 08/30/23 Procedure(s) Performed: BRIEF HISTORY: Patient is a 73-year-old, pleasant, white female scheduled for an upper endoscopy as a part of value should of iron deficiency anemia. Coloscopy 2 months ago revealed small colon polyps.. PROCEDURE PERFORMED: Esophagogastroduodenoscopy with biopsy. PREOPERATIVE DIAGNOSIS: Iron deficiency anemia. IV sedation per anesthesia. PROCEDURE: After informed consent was obtained, the patient was brought into the endoscopy unit. IV sedation was administered by Anesthesia under continuous monitoring. Initially the Olympus GIF-140 video endoscope was inserted into the mouth. Esophagus intubated without any difficulty. It was gradually advanced into the stomach and duodenum and carefully examined. The bulb and the second part of the duodenum appeared normal. Biopsies were done from the duodenum to evaluate for CBD disease. The scope at this time was withdrawn to the stomach, adequately insufflated with air, and upon careful examination, mucosa of the antrum had scattered erosions consistent with gastritis and biopsies were done from this area. Mucosa of the, body, cardia and the fundus appeared normal. The scope was then withdrawn into the esophagus. The GE junction was located at 39 cm from the incisors. Small hiatal hernia noted. There was circumferential erythema the GE junction consistent with LA grade A reflux esophagitis. The esophagus appeared normal. There were no erosions or ulcerations seen and the patient tolerated the procedure well. IMPRESSION: 1. Mild antral erosive gastritis. 2. LA grade A reflux esophagitis RECOMMENDATIONS: The findings of this examination were discussed with the patient as well as his family. She was advised to follow with the biopsy results. Resume Eliquis today. Continue iron supplements..
[2023-08-30 10:17] VITALS: BP 109/69; PULSE 74
== END 2023-08-30 10:25 | disposition home or self-care (01) ==
LOC: ORWHC2ENDO 08:09
PROVIDERS: ATTEND Internal Medicine Gastroenterology
DX: K29.50 Unspecified chronic gastritis without bleeding (principal); K21.00 Gastro-esophageal reflux disease with esophagitis, without bleeding; K44.9 Diaphragmatic hernia without obstruction or gangrene; D50.9 Iron deficiency anemia, unspecified; I10 Essential (primary) hypertension; I48.91 Unspecified atrial fibrillation; E07.9 Disorder of thyroid, unspecified; Z79.01 Long term (current) use of anticoagulants; Z91.048 Other nonmedicinal substance allergy status; Z98.890 Other specified postprocedural states; Z79.899 Other long term (current) drug therapy; Z96.641 Presence of right artificial hip joint
CPT/HCPCS: 88305; 43239; J2704; J2001

== ENCOUNTER → 2024-05-03 | Outpatient (CLI) | payer MEDICARE ==
--- NOTE | 2024-05-04 09:31 | XR ---
EXAMINATION TYPE: XR knee complete RT DATE OF EXAM: 05/03/2024 3:32 PM CLINICAL INDICATION: Female, 74 years old with history of R22.41 LOCALIZED SWELLING, MASS AND LUMP, R IGHT LOWER LIMB; [facility] COMPARISON: None. TECHNIQUE: XR knee complete RT; examined in Frontal, lateral and oblique projections. FINDINGS/IMPRESSION: Total knee arthroplasty with revision changes. There is degeneration of the patella with osteophytes. Lucency around the femoral component seen on frontal view unclear if this represents loosening. Ther e is diffuse soft tissue edema.
== END | disposition home or self-care (01) ==
LOC: RADXRMAIN 14:49
PROVIDERS: ATTEND Family Medicine
DX: R22.41 Localized swelling, mass and lump, right lower limb

== ENCOUNTER → 2024-05-11 | Outpatient (CLI) | payer MEDICARE ==
[2024-05-11 11:15] LABS: African American GFR (CKD) 81 (>60 ml/min/1.73 sqM); Blood Urea Nitrogen 23 mg/dL (7-17); Non-African American GFR(CKD) 70 (>60 ml/min/1.73 sqM)
--- NOTE | 2024-05-11 12:42 | CT ---
CT right lower extremity with contrast. COMPARISON: None. TECHNIQUE: Multiple axial images through the right hip are obtained with contrast. FINDINGS: There is a right hip prosthesis. Secondary to marked metallic artifact evaluation of the surrounding soft tissues is limited. The visualized right hemipelvis is intact. There is atrophy of the right pelvic and hip musculature. There is marked heterotopic bone formation adjacent to the hip. There is no acute fracture or dislocation. IMPRESSION: 1 Limited study as described above. 2. Right hip prosthesis with heterotopic bone formation. 3 no definite acute fracture or dislocation. 4. Muscular atrophy
== END | disposition home or self-care (01) ==
LOC: RADCTMAIN 10:28
PROVIDERS: ATTEND Surgery
DX: M79.661 Pain in right lower leg
CPT/HCPCS: 36415; 82565; 84520